=== PATIENT | female | born 1955 | race Caucasian/White ===

== ENCOUNTER → 2019-01-21 10:07 | Outpatient (CLI) | payer BC, SELFPAY ==
[2019-01-21 11:26] LABS: ALB/GLOB Ratio 0.9 RATIO (0.9-2.4); AST(SGOT) 23 U/L (15-37); Alanine Aminotransfer ALT/SGPT 33 U/L (13-56); Albumin, Serum 3.6 g/dL (3.2-5.0); Alkaline Phosphatase 98 U/L (45-117); Anion Gap 5 (5-15); BUN 12 mg/dL (7-18); BUN/Creat Ratio 19.8 RATIO (10-20); Calcium,Total 8.9 mg/dL (8.5-10.1); Chloride 107 mmol/L (98-107); Cholesterol 149 mg/dL (200); Creatinine, Serum 0.61 mg/dL (0.55-1.02); EST Glomerular Filtration Rate 106 mL/min (>60); Est Glom Filt Rate - Afr Amer 128 mL/min (>60); Globulin 4.2 g/dL (2.2-4.2); Glucose 99 mg/dL (74-106); High Density Lipoprotein 53 mg/dL; Potassium 3.9 mmol/L (3.5-5.1); Protein, Total 7.8 g/dL (6.4-8.2); Sodium Level 144 mmol/L (136-145); Triglycerides 136 mg/dL; Very Low Density Lipoprotein 27 mg/dL (5-40)
== END ==
PROVIDERS: Family Provider Family Medicine; PCP Family Medicine; Referring Provider Family Medicine; Visit Provider Family Medicine
DX: I10 Essential (primary) hypertension (principal); E78.5 Hyperlipidemia, unspecified
CPT/HCPCS: 36415; 80053; 80061

== ENCOUNTER → 2020-01-20 08:41 | Outpatient (CLI) | payer MEDICARE, SELFPAY ==
[2020-01-20 09:28] LABS: Hematocrit 42.1 % (37-47); Hemoglobin 13.2 g/dL (12.0-15.0); Mean Corp Hgb Conc 31.4 g/dL (32-36); Mean Corpuscular Hgb 25.8 pg (27.0-32.0); Mean Corpuscular Volume 82.2 fL (81-99); Mean Platelet Vol. 11.9 fl (6.2-12.0); Platelet Count 314 K/mm3 (150-450); RBC Distribution Width CV 15.2 % (11.6-14.6); RBC Distribution Width SD 45.7 fl (35.1-43.9); Red Blood Count 5.12 M/mm3 (4.2-5.4); White Blood Count 7.9 K/mm3 (4.4-11.0)
[2020-01-20 10:00] LABS: ALB/GLOB Ratio 0.8 RATIO (0.9-2.4); AST(SGOT) 22 U/L (15-37); Alanine Aminotransfer ALT/SGPT 27 U/L (13-56); Albumin, Serum 3.5 g/dL (3.2-5.0); Alkaline Phosphatase 99 U/L (45-117); Anion Gap 4 (5-15); BUN 16 mg/dL (7-18); BUN/Creat Ratio 21.6 RATIO (10-20); Calcium,Total 9.2 mg/dL (8.5-10.1); Chloride 102 mmol/L (98-107); Cholesterol 143 mg/dL (200); Creatinine, Serum 0.74 mg/dL (0.55-1.02); EST Glomerular Filtration Rate 83 mL/min (>60); Est Glom Filt Rate - Afr Amer 101 mL/min (>60); Globulin 4.2 g/dL (2.2-4.2); Glucose 113 mg/dL (74-106); High Density Lipoprotein 50 mg/dL; Potassium 3.6 mmol/L (3.5-5.1); Protein, Total 7.7 g/dL (6.4-8.2); Sodium Level 137 mmol/L (136-145); Triglycerides 121 mg/dL; Very Low Density Lipoprotein 24 mg/dL (5-40)
== END ==
PROVIDERS: PCP Family Medicine; Referring Provider Family Medicine; Visit Provider Family Medicine
DX: E78.5 Hyperlipidemia, unspecified (principal)
CPT/HCPCS: 36415; 80053; 80061; 85027

== ENCOUNTER → 2020-03-09 09:23 | Outpatient (CLI) | payer MEDICARE, SELFPAY ==
--- NOTE | 2020-03-09 09:25 | BI_ITS ---
MAMMOGRAPHY - BILATERAL SCREENING REASON FOR EXAM: Female, 64 years old. Routine annual screening examination. PERTINENT HISTORY: Non-contributory. TECHNIQUE: Digital bilateral breast anne (3D mammographic acquisition) in the CC and MLO projections. 2-D mediolateral oblique (MLO) and craniocaudad (CC) views of both breasts were obtained. CAD: Full Field Digital Mammography with Computer Added Detection was performed. COMPARISON: Comparison is made with prior study dated 02/12/2019 and 12/27/2011. FINDINGS: Breast Composition: The breasts are heterogeneously dense, which may obscure small masses. There is a 9.2 mm x 7.7 mm well-defined nodule in the upper medial aspect of the left breast. Correlation with ultrasound is recommended. No other significant abnormalities are identified. BI/SCREEN MAMM (CAD) W/ANNE BILAT IMPRESSION: 9.2 mm x 7.7 mm well-defined nodule in the upper medial aspect of the left breast as described. Correlation with ultrasound is recommended. ASSESSMENT CATEGORY: BIRADS Category 0: Incomplete. Need additional imaging evaluation. A letter regarding these results will be sent to the patient by the facility within 30 days. Approximately 10% of breast cancers are not detected by mammography. A normal mammogram should not delay biopsy of a clinically suspicious abnormality. [id number] Electronically Signed: Andrey Rios, at 10:44 EDT , Service support ,
--- NOTE | 2020-03-09 09:29 | BD_ITS ---
STUDY: DUAL ENERGY X-RAY ABSORPTIOMETRY / DXA REASON FOR EXAM: Female, 64 years old. 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 COMPARISON: None. FINDINGS: Lumbar Spine (L1-L4): g/cm2 (1.346) / T-score (1.4) / Z-score (3.0) Findings are suggestive of normal bone density with a low fracture risk. Left Femur Total: g/cm2 (1.083) / T-score (0.6) / Z-score (1.8) Left Femoral Neck: g/cm2 (0.912) / T-score (-0.9) / Z-score (0.6) Right Femur Total: g/cm2 (1.118) / T-score (0.9) / Z-score (2.1) Right Femoral Neck: g/cm2 (0.925) / T-score (-0.8) / Z-score (0.7) BD/Dexa Bone Density Study IMPRESSION: The patient is considered normal as outlined below according to World Jer Organization (WHO) criteria with a low fracture risk. Reference Information: The T-score is the number of standard deviations above or below the standard which is normal for young adults at their peak bone mineral density. The World Health Organization (WHO) interprets the T-scores as follows: Above -1 Normal bone density Between -1 and -2.5 Osteopenia Equal to / or below -2.5 Osteoporosis As a practical clinical guideline, osteopenia may be graded as follows: Mild -1 through -1.5 Moderate -1.6 through -2.0 Severe -2.1 through -2.4 The Z-score is the number of standard deviations above or below age-matched controls. A Z-score of less than -1.5 would be considered abnormal. References: 1. NIH Osteoporosis and Related Bone Diseases www osteo.org 2. International Society for Clinical Densitometry www iscd.org 3. National Osteoporosis Foundation www nof.org Electronically Signed: Andrey Rios, at 15:31 EDT , Service support ,
== END ==
PROVIDERS: PCP Family Medicine; Referring Provider Family Medicine; Visit Provider Family Medicine
DX: Z12.31 Encounter for screening mammogram for malignant neoplasm of breast (principal); Z78.0 Asymptomatic menopausal state
CPT/HCPCS: 77063; 77067; 77080

== ENCOUNTER → 2020-03-15 09:02 | Outpatient (CLI) | payer MEDICARE, SELFPAY ==
--- NOTE | 2020-03-15 09:03 | US_ITS ---
STUDY: ULTRASOUND BREAST - LEFT REASON FOR EXAM: Female, 64 years old. Abnormal screening mammogram. TECHNIQUE: Axial and longitudinal images of the LEFT breast were performed with a high resolution ultrasound transducer. # OF IMAGES: [id number] COMPARISON: Comparison is made with prior mammogram dated 03/09/2020. FINDINGS: LEFT Breast: The mammographic abnormality corresponds to a 7 mm x 7 mm x 3 mm well-defined lymph node at the 11 o''clock position of the breast at 5 cm from nipple. US/Breast Limited Unilateral IMPRESSION: The mammographic abnormality corresponds to a 7 mm x 7 mm x 3 mm benign appearing lymph node. ASSESSMENT CATEGORY: BIRADS Category 2: Benign. A letter regarding these results will be sent to the patient by the facility within 30 days. Electronically Signed: Andrey Rios, at 11:25 EST , Service support ,
== END ==
PROVIDERS: PCP Family Medicine; Referring Provider Family Medicine; Visit Provider Family Medicine
DX: R92.8 Other abnormal and inconclusive findings on diagnostic imaging of breast (principal); N63.0 Unspecified lump in unspecified breast
CPT/HCPCS: 76642

== ENCOUNTER → 2020-03-21 07:50 | Outpatient (CLI) | payer MEDICARE, SELFPAY ==
--- NOTE | 2020-03-21 07:54 | US_ITS ---
STUDY: ULTRASOUND OF THE FEMALE PELVIS - COMPLETE REASON FOR EXAM: Female, 64 years old. FAMILY H/O OVARIAN LMP: The patient is postmenopausal. TECHNIQUE: Transabdominal and Transvaginal TECHNICAL QUALITY: Adequate. COMPARISON: None. FINDINGS: The uterus is anteverted and is tilted to the left side of the pelvis. The uterus measures 6.5 cm x 4.5 cm x 2.6 cm. Normal uterine cervix. The endometrium is thickened and measures 6 mm in thickness, and is hyperechoic. There is no demonstrated endometrial mass. There is no demonstrated myometrial mass. I.U.D. - The patient does not have an I.U.D. The right ovary is visualized. The right ovary measures 3.3 cm x 2 cm x 2.5 cm. There is a 3.1 cm x 2 cm x 1.9 cm right ovarian cyst. There is no visualized right adnexal mass or complex lesion. There is normal arterial and normal venous vascularity. The left ovary is visualized. The left ovary measures 1.8 cm x 1.5 cm x 0.9 cm. There is no left ovarian cyst or ovarian mass. There is no visualized left adnexal mass or complex lesion. There is normal arterial and normal venous vascularity. There is no fluid in the cul-de-sac. The pre void volume of the bladder was 187 ml. The post void volume of the bladder was ml. US/Pelvic (Non ) IMPRESSION: Thickened endometrium. 3.1 cm x 2 cm x 1.9 cm right ovarian cyst. Electronically Signed: Andrey Rios, at 11:15 EST , Service support ,
--- NOTE | 2020-03-21 07:54 | US_ITS ---
STUDY: ULTRASOUND OF THE FEMALE PELVIS - COMPLETE REASON FOR EXAM: Female, 64 years old. FAMILY H/O OVARIAN LMP: The patient is postmenopausal. TECHNIQUE: Transabdominal and Transvaginal TECHNICAL QUALITY: Adequate. COMPARISON: None. FINDINGS: The uterus is anteverted and is tilted to the left side of the pelvis. The uterus measures 6.5 cm x 4.5 cm x 2.6 cm. Normal uterine cervix. The endometrium is thickened and measures 6 mm in thickness, and is hyperechoic. There is no demonstrated endometrial mass. There is no demonstrated myometrial mass. I.U.D. - The patient does not have an I.U.D. The right ovary is visualized. The right ovary measures 3.3 cm x 2 cm x 2.5 cm. There is a 3.1 cm x 2 cm x 1.9 cm right ovarian cyst. There is no visualized right adnexal mass or complex lesion. There is normal arterial and normal venous vascularity. The left ovary is visualized. The left ovary measures 1.8 cm x 1.5 cm x 0.9 cm. There is no left ovarian cyst or ovarian mass. There is no visualized left adnexal mass or complex lesion. There is normal arterial and normal venous vascularity. There is no fluid in the cul-de-sac. The pre void volume of the bladder was 187 ml. The post void volume of the bladder was ml. US/Transvaginal Non- IMPRESSION: Thickened endometrium. 3.1 cm x 2 cm x 1.9 cm right ovarian cyst. Electronically Signed: Andrey Rios, at 11:15 EST , Service support ,
== END ==
PROVIDERS: PCP Family Medicine; Referring Provider Obstetrics & Gynecology; Visit Provider Obstetrics & Gynecology
DX: N83.201 Unspecified ovarian cyst, right side (principal); R93.89 Abnormal findings on diagnostic imaging of other specified body structures; Z78.0 Asymptomatic menopausal state; Z80.41 Family history of malignant neoplasm of ovary
CPT/HCPCS: 76830; 76856

== ENCOUNTER → 2020-12-09 10:13 | Outpatient (CLI) | payer MEDICARE, SELFPAY ==
--- NOTE | 2020-12-09 10:11 | EKG12_ITS ---
Test Reason : PREOP Blood Pressure : / mmHG Vent. Rate : 074 BPM Atrial Rate : 074 BPM P-R Int : 188 ms QRS Dur : 084 ms QT Int : 378 ms P-R-T Axes : 039 052 031 degrees QTc Int : 419 ms Normal sinus rhythm Normal ECG Confirmed by MAURO LIND, LATASHA ([id number]), astronaut mission specialist ARIC ISRAEL ([id number]) on 12/13/2020 10:02:02 AM Referred By: Sai Gutierrez Confirmed By:LAATSHA WADE MD
[2020-12-09 11:03] LABS: Hematocrit 39.4 % (37-47); Hemoglobin 12.2 g/dL (12.0-15.0); Mean Corpuscular Hgb 26.1 pg (27.0-32.0); Mean Corpuscular Volume 84.4 fL (81-99); Mean Platelet Vol. 11.5 fl (6.2-12.0); Platelet Count 332 K/mm3 (150-450); RBC Distribution Width CV 15.5 % (11.6-14.6); RBC Distribution Width SD 46.5 fl (35.1-43.9); Red Blood Count 4.67 M/mm3 (4.2-5.4); White Blood Count 8.3 K/mm3 (4.4-11.0)
[2020-12-09 11:17] LABS: Anion Gap 6 (5-15); BUN 19 mg/dL (7-18); BUN/Creat Ratio 30.7 RATIO (10-20); Calcium,Total 9.3 mg/dL (8.5-10.1); Chloride 104 mmol/L (98-107); Creatinine, Serum 0.62 mg/dL (0.55-1.02); EST Glomerular Filtration Rate 103 mL/min (>60); Est Glom Filt Rate - Afr Amer 124 mL/min (>60); Glucose 106 mg/dL (74-106); Potassium 3.9 mmol/L (3.5-5.1); Sodium Level 140 mmol/L (136-145)
== END ==
PROVIDERS: PCP Family Medicine; Referring Provider Physician Assistant Surgical; Visit Provider Physician Assistant Surgical
DX: Z01.818 Encounter for other preprocedural examination (principal)
CPT/HCPCS: 36415; 80048; 85027; 93005

== ENCOUNTER → 2020-12-16 | Outpatient (CLI) | payer MEDICARE, SELFPAY ==
--- NOTE | 2020-12-16 | GANG_PTH ---
PATIENT: MERLENE SOW LOC: [facility] U#:[id number] AGE/SX: 65/F ROOM: RE12/16/[address]: Dr. Carter Mena MD : 1955 BED: DIS: 12/16/2020 SPEC #: [id number] RECD: 12/16/20 15:01 STATUS: TY REGrace #: [id number] PETER: 12/16/20 00:[address]: Carter Mena DEPT: SURGICAL PATHOLOGY RECD BY: Vinicio Ann ENTERED: 12/19/20 08:07 SP TYPE: GANGLION OTHR DR: Dr. Jose Cruz MD [facility] Tissues: GANGLION CYST Procedures: Surgery Specimen Level III HEADER OPERATION: Right thumb carpometacarpal joint arthroplasty, excision ganglion cyst PRE-OP DIAGNOSIS: Ganglion cyst right wrist TISSUE SUBMITTED: Ganglion cyst right wrist MICROSCOPIC DIAGNOSIS Ganglion cyst right wrist, excision: Consistent with ganglion cyst with reactive changes. SJ:rosanna 12/20/2020 COMMENT Case has been reviewed in consultation with Dr. Murguia who concurs with the above diagnosis. IDC:AM MICROSCOPIC DESCRIPTION Slides are reviewed. GROSS DESCRIPTION Received in fixative is one container labeled with the patient's name and designated ganglion cyst right wrist. The specimen consists of a piece of simeon soft tissue measuring 0.7 x 0.7 x 0.3 cm. The specimen is bisected and submitted entirely in one cassette. / SJ:rosanna 12/19/20 TC:5 CPT: 08862
== END | disposition home or self-care (01) ==
LOC: LABSPEC 15:45
PROVIDERS: PCP Family Medicine; Referring Provider Specialist; Visit Provider Specialist
DX: M67.431 Ganglion, right wrist (principal)
CPT/HCPCS: 88304

== ENCOUNTER 2021-02-28 09:00 | Outpatient (RCR) | payer MEDICARE, SELFPAY ==
--- NOTE | 2021-01-17 09:28 | HP.OTEVAL ---
Patient's Visit Information MERLENE SOW is a 65 year old F, referred to Occupational Therapy by Himanshu Boles PA-C, with a diagnosis of right Unilateral primary osteoarthritis of cmc, DeQuervains. Date of Evaluation: 01/12/21 Occupational Therapist: Sil Carreno, SHANELLE/Ra, CHT - Subjective This 65 year old female was seen for OT eval with dx Unilateral primary osteoarthritis of 1st carpometacarpal joint right hand- pt also had radial styloid tenosynovitis (DeQuervains-) sx was on 12/16/20. pt arrives 3 weeks and 6 days s/p from CMC arthroplasty with radial styloid release. pt arrives in need of custom orthosis to allow for further healing and protection while pt is healing. Pt states she is hopeful she is ready to return to her PLOF in a few months. - Pain right hand 1 Pain Intensity Range: 5 - ROM Wrist: right 45/30 left 65/65m CMC: right 15 left 20 MP: right 45 left 50 IP: right 20 left 60 - Strength Airframe And Powerplant Technician: Right NT left 55# Lateral Pinch: right NT left 4# Tripod Pinch: right NT left Strength Comments: will test strength at later date about 6-8 weeks s/p - Sensation Sensation Comments: denines - Quick DASH-Disab of Arm,Shoulder& Hand Quick DASH Score: 60.0000 - Hand/Wrist Evaluation Total Score of Pain & Functional Sections: 79 - Goals Goal:100% adherence to protocol: Yes Comment: cmc arthroplasty Goal:Daily scar massage when approriate: Yes Goal:ROM equal to unaffected hand: Yes Goal:Airframe And Powerplant Technician/Pinch strength at least 75% of unaffected hand: Yes Goal:No pain with affected hand use: Yes Goal:Decrease scar hypersensitivity: Yes Other Goal: pt will demo IND. doffing and donning of custom orthosis by end of 1st session- goal met. pt will demo understanding of sx and reconstruction by end of 1st session. pt will demo understanding of orthosis precautions and use by end of 1st session. - Rehabilitation General Assessment: pt arrives 3 weeks and 6 days s/p from CMC arthroplasty. pt is currently limited with use of right hand with ADls and IADls. pt is in need of skilled OT services 1-2 x week for 8 weeks. Today therapist kimberlee. custom orthosis for protection. therapist ed. pt on orthosis precautions and to return to clinic if adj. need made- pt demo understanding- therapist will follow CMC arthroplasty protocol initiating wrist, and supported CMC with IP motion, and finger ROM- therapy will continue to transition pt in more ROM as clinical objective measurements improve and subjective report continues to indicate progress.pt agrees with POC. Rehabilitation Potential: Good - Anticipated Interventions A/AAROM/PROM, Strengthening, Scar Care, Triggerpoint Release, Desensitization, Modalities, Orthoses, Joint Protection/Energy Conservation, Ergonomic Education, Education re assistive Equipment, Education re Diagnosis - Visit Plan Frequency: 2-3x /Week Duration: 2 Months TEXT: Thank you for the opportunity to evaluate your patient. For Medicare and Medicare HMO plans, please review the plan of care and approve it. It will need to be FAXED BACK to us at [phone] for Medicare purposes. Please let me know if there are questions or concerns regarding this plan of care. Physician Signature: Date:
--- NOTE | 2021-02-08 09:27 | OTREVAL_ITS ---
Himanshu Boles PA-C, It has been my pleasure to treat MERLENE SOW over the last 4 visits for right Unilateral primary osteoarthritis of cmc, DeQuervains. Please see the progress note below for an update on the occupational therapy plan of care! Subjective: pt arrives 7 weeks and 6 days from CMC arthoplasty -pt states she feels her right hand only stops her from doing things about 10-15% of the time- pt did chop a lot of veggies this past weekend and did have soreness. pt states she is out of her brace during the day 90% of the time or more- pt states she is still wearing at night. Objective/Function: right 65/ 60. right CMC 15. right MP 40. right IP 55. right hand pattern marker 30# left is 55#. right lateral pinch 6#. right tripod pinch 6#. pt is making gains with her right thumb recovery-. pt has returned to performing most ADLs without limits- pt has initiated hand pattern marker and pinch strength and has HEP. Goals - Goals Patient Goals: Regain Mobility, Decrease Pain, Improve Fine Motor Skills Goal:100% adherence to protocol: Yes Goal:Daily scar massage when approriate: Yes Goal:ROM equal to unaffected hand: Yes Goal:Colliery Clerk/Pinch strength at least 75% of unaffected hand: Yes Goal:No pain with affected hand use: Yes Goal:Decrease scar hypersensitivity: Yes Other Goal: pt will demo IND. doffing and donning of custom orthosis by end of 1st session- goal met. pt will demo understanding of sx and reconstruction by end of 1st session. pt will demo understanding of orthosis precautions and use by end of 1st session. Anticipated Interventions Anticipated Interventions: A/AAROM/PROM, Strengthening, Scar Care, Triggerpoint Release, Desensitization, Modalities, Orthoses, Joint Protection/Energy Conservation, Ergonomic Education, Education re assistive Equipment, Education re Diagnosis Please do not hesitate to contact me at [phone] by phone or if you have questions or concerns regarding this new plan of care! Sincerely, Sil Carreno, OTR/L, CHT
--- NOTE | 2021-06-01 09:37 | HP.OTDCNRP_ITS ---
MERLENE SOW was seen in my office for initial evaluation on 01/12/21. The following Plan of Care was established for this patient: Initial Frequency: 2-3x /Week Initial Duration: 2 Months Anticipated Interventions: A/AAROM/PROM, Strengthening, Scar Care, Triggerpoint Release, Desensitization, Modalities, Orthoses, Joint Protection/Energy Conservation, Ergonomic Education, Education re assistive Equipment, Education re Diagnosis This patient was last seen in our office 02/28/21. Pertinent comments regarding their Occupational therapy will appear below: pt was seen for 7 OT visits following a CMC arthroplasty- pt made great gains in her recovery- right 65/ 60 right CMC 15 right MP 40 right IP 55 right prototype assembler electronics 38# left is 55# right lateral pinch 6# right tripod pinch 6# pt is making gains with her right thumb recovery- pt has returned to performing most ADLs without limits- pt has initiated prototype assembler electronics and pinch strength and has HEP. at this time pt has not returned for further apt due to time lapse in services pt d/c. At this point I will be discontinuing this patient from occupational therapy. I would be happy to see this patient again in the future if found appropriate by the physician. Thank you! Sil Carreno, OTR/L, CHT
== END 2021-02-28 19:00 | disposition home or self-care (01) ==
LOC: OT 09:00
PROVIDERS: PCP Family Medicine; Referring Provider Physician Assistant; Visit Provider Physician Assistant
DX: M65.4 Radial styloid tenosynovitis [de Quervain] (principal); M18.11 Unilateral primary osteoarthritis of first carpometacarpal joint, right hand
CPT/HCPCS: 97110; 97166; 97530; 97760

== ENCOUNTER → 2021-03-27 12:25 | Outpatient (CLI) | payer MEDICARE, SELFPAY ==
--- NOTE | 2021-03-27 12:30 | US_ITS ---
EXAM: US PELVIS TRANSABDOMINAL AND TRANSVAGINAL, COMPLETE : 1955 CLINICAL INDICATION: family history of ovarian ca TECHNIQUE: Transabdominal and transvaginal pelvic ultrasound was performed with grayscale and color Doppler imaging. Transvaginal imaging was used for better evaluation of the endometrium and adnexa. This report was created using [employer] report generation technology. COMPARISON: None. FINDINGS: UTERUS/CERVIX: The uterus measures 6.4 x 3.2 x 4.7 cm. Endometrium measures 7 mm. Anteverted. There is no uterine mass. RIGHT OVARY: The right ovary measures 4.2 x 2.6 x 3.4 cm. There is a 3.0 x 3.4 x 2.0 cm anechoic structure in the right ovary compatible with a cyst. Blood flow is present in the right ovary. LEFT OVARY: The left ovary is not visualized. FREE FLUID: None. BLADDER: Unremarkable as visualized. Wall is normal thickness for degree of distention. US/Transvaginal Non- IMPRESSION: Anechoic structure in the right ovary compatible with a cyst. The left ovary is not visualized. No other abnormalities are seen. at 0308 Reported and signed by: Salinas Tate MD Electronically Signed: Salinas Tate MD at 3:07 EST Tel , Service support ,
--- NOTE | 2021-03-27 12:30 | US_ITS ---
EXAM: US PELVIS TRANSABDOMINAL AND TRANSVAGINAL, COMPLETE : 1955 CLINICAL INDICATION: family history of ovarian ca TECHNIQUE: Transabdominal and transvaginal pelvic ultrasound was performed with grayscale and color Doppler imaging. Transvaginal imaging was used for better evaluation of the endometrium and adnexa. This report was created using [employer] report generation technology. COMPARISON: None. FINDINGS: UTERUS/CERVIX: The uterus measures 6.4 x 3.2 x 4.7 cm. Endometrium measures 7 mm. Anteverted. There is no uterine mass. RIGHT OVARY: The right ovary measures 4.2 x 2.6 x 3.4 cm. There is a 3.0 x 3.4 x 2.0 cm anechoic structure in the right ovary compatible with a cyst. Blood flow is present in the right ovary. LEFT OVARY: The left ovary is not visualized. FREE FLUID: None. BLADDER: Unremarkable as visualized. Wall is normal thickness for degree of distention. US/Pelvic (Non ) IMPRESSION: Anechoic structure in the right ovary compatible with a cyst. The left ovary is not visualized. No other abnormalities are seen. at 0308 Reported and signed by: Salinas Tate MD Electronically Signed: Salinas Tate MD at 3:07 EST Tel , Service support ,
--- NOTE | 2021-03-27 12:58 | BI_ITS ---
MAMMOGRAPHY - BILATERAL SCREENING REASON FOR EXAM: Female, 65 years old. Routine annual screening examination. PERTINENT HISTORY: Non-contributory. TECHNIQUE: Digital bilateral breast anne (3D mammographic acquisition) in the CC and MLO projections. 2-D mediolateral oblique (MLO) and craniocaudad (CC) views of both breasts were obtained. CAD: Full Field Digital Mammography with Computer Added Detection was performed. COMPARISON: Comparison is made with prior study dated 03/09/2020 and 12/27/2011. FINDINGS: Breast Composition: The breasts are heterogeneously dense, which may obscure small masses. There are no dominant masses or suspicious calcifications. Stable 7.7 mm x 9 mm well-defined nodule in the upper medial aspect of the left breast. No other significant abnormalities are identified. There has been no significant change since the prior study. BI/SCRN MAMM (CAD)W/ANNE BILAT IMPRESSION: Stable bilateral screening mammogram. Yearly follow-up mammogram recommended. (A) ASSESSMENT CATEGORY: BIRADS Category 2: Benign. A letter regarding these results will be sent to the patient by the facility within 30 days. Approximately 10% of breast cancers are not detected by mammography. A normal mammogram should not delay biopsy of a clinically suspicious abnormality. [id number] Electronically Signed: Andrey Rios MD at 13:32 EST , Service support ,
== END ==
PROVIDERS: PCP Family Medicine; Referring Provider Obstetrics & Gynecology; Visit Provider Obstetrics & Gynecology
DX: Z12.31 Encounter for screening mammogram for malignant neoplasm of breast (principal); Z80.41 Family history of malignant neoplasm of ovary
CPT/HCPCS: 76830; 76856; 77063; 77067

== ENCOUNTER 2021-06-21 08:44 | Outpatient (CLI) | payer MEDICARE, SELFPAY ==
--- NOTE | 2021-06-21 08:53 | RAD_ITS ---
STUDY: X-RAY - LUMBAR SPINE REASON FOR EXAM: Female, 65 years old. SEVERE PAIN SINCE SATURDAY, DECREASE IN LEG SENSATION, RIGHT LEG NUMB/TINGLY, INCREASE PAIN WHILE STANDING Dorsalgia, unspecified TECHNIQUE: XR Spine Lumbar Min 4 Views COMPARISON: None FINDINGS: Normal lumbar lordosis. There is no substantial scoliosis. There is a normal alignment of the vertebrae. There are multiple metallic clips in the right upper quadrant. This is consistent for a cholecystectomy. Vacuum disc phenomenon. This is noted at L1-2 and L5-S1. There is multilevel endplate spondylosis of the lumbar vertebrae. There is multi-level degenerative disc disease with multi-level disc space narrowing. There are atherosclerotic vascular calcifications. The soft tissue structures are unremarkable. RAD/L/S Spine Min 4 Views IMPRESSION: Degenerative changes of the spine, as detailed above. Electronically Signed: Chris Rolon MD at 16:49 EST ,
== END 2021-06-21 23:59 | disposition home or self-care (01) ==
LOC: RAD 08:48
PROVIDERS: PCP Family Medicine; Referring Provider Family Medicine; Visit Provider Family Medicine
DX: M54.9 Dorsalgia, unspecified (principal)
CPT/HCPCS: 72110

== ENCOUNTER 2021-08-07 10:21 | Outpatient (CLI) | payer MEDICARE, SELFPAY ==
--- NOTE | 2021-08-07 10:25 | MRI_ITS ---
STUDY: MRI LUMBAR SPINE WITHOUT CONTRAST REASON FOR EXAM: Female, 65 years old. SCIATICA TECHNIQUE: Standardized fat and water weighted pulse sequences were obtained in the sagittal and axial planes. COMPARISON: Lumbar spine x-ray dated June 21, 2021 FINDINGS: No fracture or compression deformity or bone marrow edema is present. Normal lumbar lordosis. There is a dextroscoliosis of the lumbar spine. Normal conus medullaris that terminates at the L1-L2 level. L1-2: Moderate disc space narrowing with a diffuse disc spur complex. Normal bilateral facet joints. Normal central canal and bilateral lateral recesses. Normal bilateral intervertebral neural foramina. L2-3: Mild to moderate disc space narrowing with a diffuse disc osteophyte complex. Retrolisthesis of L2 on L3 of 2 to 3 mm. Normal bilateral facet joints. Normal central canal and bilateral lateral recesses. Normal bilateral intervertebral neural foramina. L3-4: Mild posterior disc space narrowing with a disc spur complex. Mild facet joint hypertrophy. Normal central canal and bilateral lateral recesses. Normal bilateral intervertebral neural foramina. L4-5: Normal endplates. Mild posterior disc space narrowing and annular bulging. Mild facet joint hypertrophy. Normal central canal and bilateral lateral recesses. Normal bilateral intervertebral neural foramina. L5-S1: Mild disc space narrowing with a minimal disc spur complex. Mild facet joint hypertrophy. Normal central canal and bilateral lateral recesses. Normal bilateral intervertebral neural foramina. Normal visualized sacral ala. There is mild paraspinal muscular atrophy. MRI/Spine Lumbar (Routine) IMPRESSION: Multilevel degenerative changes, as described above. Electronically Signed: Carlos Paula MD at 12:25 EDT ,
== END 2021-08-07 23:59 | disposition home or self-care (01) ==
PROVIDERS: PCP Family Medicine; Visit Provider Family Medicine
DX: M54.9 Dorsalgia, unspecified (principal); M54.30 Sciatica, unspecified side
CPT/HCPCS: 72148

== ENCOUNTER → 2021-12-23 | Outpatient (CLI) | payer MEDICARE, SELFPAY ==
[2021-12-23 09:42] LABS: Hematocrit 42.6 % (37-47); Hemoglobin 13.5 g/dL (12.0-15.0); Mean Corp Hgb Conc 31.7 g/dL (32-36); Mean Corpuscular Hgb 26.3 pg (27.0-32.0); Mean Platelet Vol. 11.8 fl (6.2-12.0); Platelet Count 279 K/mm3 (150-450); RBC Distribution Width SD 45.4 fl (35.1-43.9); Red Blood Count 5.13 M/mm3 (4.2-5.4); White Blood Count 9.1 K/mm3 (4.4-11.0)
[2021-12-23 10:08] LABS: ALB/GLOB Ratio 0.8 RATIO (0.9-2.4); AST(SGOT) 19 U/L (15-37); Alanine Aminotransfer ALT/SGPT 31 U/L (13-56); Albumin, Serum 3.3 g/dL (3.2-5.0); Alkaline Phosphatase 97 U/L (45-117); Anion Gap 7 (5-15); BUN 17 mg/dL (7-18); BUN/Creat Ratio 25.1 RATIO (10-20); Calcium,Total 9.2 mg/dL (8.5-10.1); Chloride 102 mmol/L (98-107); Cholesterol 137 mg/dL (200); Creatinine, Serum 0.68 mg/dL (0.55-1.02); EST Glomerular Filtration Rate 92 mL/min (>60); Est Glom Filt Rate - Afr Amer 112 mL/min (>60); Globulin 4.3 g/dL (2.2-4.2); Glucose 123 mg/dL (74-106); High Density Lipoprotein 46 mg/dL; Potassium 3.5 mmol/L (3.5-5.1); Protein, Total 7.6 g/dL (6.4-8.2); Sodium Level 138 mmol/L (136-145); Triglycerides 140 mg/dL; Very Low Density Lipoprotein 28 mg/dL (5-40)
== END | disposition home or self-care (01) ==
LOC: LAB 08:27
PROVIDERS: PCP Family Medicine; Referring Provider Family Medicine; Visit Provider Family Medicine
DX: E78.5 Hyperlipidemia, unspecified (principal)
CPT/HCPCS: 36415; 80053; 80061; 85027

== ENCOUNTER → 2022-03-27 | Outpatient (CLI) | payer MEDICARE, SELFPAY ==
--- NOTE | 2022-03-27 12:53 | US_ITS ---
INDICATION: Family History of ovarian cancer. COMPARISON: March 27, 2021 ultrasound pelvis at 12:55 PM Report from March 21, 2020. TECHNIQUE: Transabdominal and transvaginal scanning was performed with grayscale and color Doppler imaging. FINDINGS: Uterus: Measures 8.2 x 5.1 x 2.4 cm. No uterine masses are identified. Endometrium: Measures 8.9 mm. No endometrial masses or abnormal fluid collections. There is a thickened appearance of the endocervical canal. Right ovary measures 4 x 2.8 x 2.9 cm. There is a visualized right adnexal cyst measuring there is a visualized right-sided ovarian cyst measuring 3.9 x 2.8 x 2.6 cm. The transvaginal imaging. On transabdominal imaging and measures 3.4 x 2.7 x 2.5 cm. There is no visualized internal vascularity. The visualized nabothian cyst at the level of the cervix. This is similar to the prior study. Prior reports describe a 3.1 x 2.0 x 2 cm right ovarian cyst. On prior study there is a cystic structure measuring 3.4 x 1.9 x 2.9 cm Similar to prior study, Left ovary is not visualized on this study. Free fluid: There is a minimal amount of free fluid. The bladder is distended on the transabdominal images. The bladder measures 407.19 mL in volume. The endometrium appears to measure approximately 7.6 mm on the transabdominal images. US/Pelvic (Non ) IMPRESSION: There is similar-appearing anechoic avascular cystic structure right adnexa that now measures 3.9 x 2.8 x 2.6 cm. March 21, 2020 was measured at 3.1 x 2.0 x 1.9 cm. There is been slight interval enlargement over time. Abnormal thickened appearance of the endometrium for patient''s age measuring 8.9 mm. The endometrium on the 2020 study was described as 9.2 mm previously March 21, 2020 at 6 mm. The endometrium in postmenopausal patient should be less than 6 mm. Potentially endometrial hyperplasia could have this appearance or atypia. Could consider follow-up MRI of the pelvis if possible. Nonvisualization of the left ovary. Electronically Signed: Kaykay Hobbs MD at 0:39 EST ,
== END | disposition home or self-care (01) ==
PROVIDERS: PCP Family Medicine; Referring Provider Obstetrics & Gynecology; Visit Provider Obstetrics & Gynecology
DX: Z80.41 Family history of malignant neoplasm of ovary (principal)
CPT/HCPCS: 76830; 76856

== ENCOUNTER → 2022-04-11 | Outpatient (CLI) | payer MEDICARE, SELFPAY ==
--- NOTE | 2022-04-11 08:08 | BI_ITS ---
MAMMOGRAPHY - BILATERAL SCREENING REASON FOR EXAM: Female, 66 years old. Routine annual screening examination. PERTINENT HISTORY: Non-contributory. TECHNIQUE: Digital bilateral breast anne (3D mammographic acquisition) in the CC and MLO projections. 2-D mediolateral oblique (MLO) and craniocaudad (CC) views of both breasts were obtained. CAD: Full Field Digital Mammography with Computer Added Detection was performed. COMPARISON: Comparison is made with prior study dated 03/27/2021 and 03/09/2020. FINDINGS: Breast Composition: The breasts are heterogeneously dense, which may obscure small masses. Stable 9 mm x 7.7 mm well-defined nodule in the upper medial aspect of the left breast. Multiple skin lesions are seen in both breasts. Stable benign-appearing bilateral axillary lymph nodes. No other significant abnormalities are identified. There has been no significant change since the prior study. BI/SCRN MAMM (CAD)W/ANEN BILAT IMPRESSION: Stable bilateral screening mammogram. Yearly follow-up mammogram recommended. (A) ASSESSMENT CATEGORY: BIRADS Category 2: Benign. A letter regarding these results will be sent to the patient by the facility within 30 days. Approximately 10% of breast cancers are not detected by mammography. A normal mammogram should not delay biopsy of a clinically suspicious abnormality. [id number] Electronically Signed: Andrey Rios MD at 9:22 EST ,
== END | disposition home or self-care (01) ==
LOC: OPBI 08:07
PROVIDERS: PCP Family Medicine; Visit Provider Obstetrics & Gynecology
DX: Z12.31 Encounter for screening mammogram for malignant neoplasm of breast (principal)
CPT/HCPCS: 77063; 77067

== ENCOUNTER → 2022-08-21 | Outpatient (CLI) | payer MEDICARE, SELFPAY ==
[2022-08-21 11:39] LABS: Hemoglobin A1c 6.3 % (3.8-5.6)
== END | disposition home or self-care (01) ==
LOC: LAB 11:03
PROVIDERS: PCP Family Medicine; Referring Provider Family Medicine; Visit Provider Family Medicine
DX: R73.02 Impaired glucose tolerance (oral) (principal)
CPT/HCPCS: 36415; 83036

== ENCOUNTER → 2023-04-24 | Outpatient (CLI) | payer MEDICARE, SELFPAY ==
--- NOTE | 2023-04-24 08:25 | BI_ITS ---
MAMMOGRAPHY - BILATERAL SCREENING REASON FOR EXAM: Female, 67 years old. Routine annual screening examination. PERTINENT HISTORY: Non-contributory. TECHNIQUE: Digital bilateral breast anne (3D mammographic acquisition) in the CC and MLO projections. 2-D mediolateral oblique (MLO) and craniocaudad (CC) views of both breasts were obtained. CAD: Full Field Digital Mammography with Computer Added Detection was performed. COMPARISON: Comparison is made with prior examination of April 11, 2022 and March 27, 2021. FINDINGS: Breast Composition: The breasts are heterogeneously dense, which may obscure small masses. There are no dominant masses or suspicious calcifications. Stable 7.7 mm x 9 mm well-defined nodule in the upper medial aspect of the left breast. This is suggestive of a small lymph node. Stable benign-appearing bilateral axillary lymph nodes. No other significant abnormalities are identified. There has been no significant change since the prior study. BI/SCRN MAMM (CAD)W/ANNE BILAT IMPRESSION: Stable bilateral screening mammogram. Yearly follow-up mammogram recommended. (A) ASSESSMENT CATEGORY: BIRADS Category 2: Benign. A letter regarding these results will be sent to the patient by the facility within 30 days. Approximately 10% of breast cancers are not detected by mammography. A normal mammogram should not delay biopsy of a clinically suspicious abnormality. [id number] Electronically Signed: Andrey Rios MD at 10:50 EST ,
== END | disposition home or self-care (01) ==
LOC: OPBI 08:24
PROVIDERS: PCP Family Medicine; Referring Provider Family Medicine; Visit Provider Family Medicine
DX: Z12.31 Encounter for screening mammogram for malignant neoplasm of breast (principal)
CPT/HCPCS: 77063; 77067

== ENCOUNTER → 2023-07-03 | Outpatient (CLI) | payer MEDICARE, SELFPAY ==
[2023-07-03 11:57] LABS: Hematocrit 40.7 % (37-47); Hemoglobin 12.9 g/dL (12.0-15.0); Mean Corp Hgb Conc 31.7 g/dL (32-36); Mean Corpuscular Hgb 26.5 pg (27.0-32.0); Mean Corpuscular Volume 83.7 fL (81-99); Platelet Count 292 K/mm3 (150-450); RBC Distribution Width CV 14.7 % (11.6-14.6); RBC Distribution Width SD 45.1 fl (35.1-43.9); Red Blood Count 4.86 M/mm3 (4.2-5.4); White Blood Count 8.5 K/mm3 (4.4-11.0)
[2023-07-03 12:38] LABS: ALB/GLOB Ratio 0.8 RATIO (0.9-2.4); AST(SGOT) 14 U/L (15-37); Alanine Aminotransfer ALT/SGPT 27 U/L (13-56); Albumin, Serum 3.4 g/dL (3.2-5.0); Alkaline Phosphatase 107 U/L (45-117); Anion Gap 6 (5-15); BUN 14 mg/dL (7-18); BUN/Creat Ratio 19.4 RATIO (10-20); Calcium,Total 9.8 mg/dL (8.5-10.1); Chloride 102 mmol/L (98-107); Cholesterol 193 mg/dL (200); Creatinine, Serum 0.72 mg/dL (0.55-1.02); EST Glomerular Filtration Rate 85 mL/min (>60); Est Glom Filt Rate - Afr Amer 103 mL/min (>60); Globulin 4.4 g/dL (2.2-4.2); Glucose 114 mg/dL (74-106); High Density Lipoprotein 50 mg/dL; Potassium 3.8 mmol/L (3.5-5.1); Protein, Total 7.8 g/dL (6.4-8.2); Sodium Level 137 mmol/L (136-145); Triglycerides 124 mg/dL; Very Low Density Lipoprotein 25 mg/dL (5-40)
[2023-07-03 12:41] LABS: Hemoglobin A1c 6.4 % (3.8-5.6)
== END | disposition home or self-care (01) ==
LOC: LAB 11:20
PROVIDERS: PCP Family Medicine; Referring Provider Family Medicine; Visit Provider Family Medicine
DX: E78.2 Mixed hyperlipidemia (principal); R73.02 Impaired glucose tolerance (oral)
CPT/HCPCS: 36415; 80053; 80061; 83036; 85027

== ENCOUNTER → 2023-07-11 | Outpatient (CLI) | payer MEDICARE, SELFPAY | END | disposition home or self-care (01) | LOC: LAB.FUTURE 10:25 | PROVIDERS: PCP Family Medicine; Visit Provider Family Medicine | DX: R73.02 Impaired glucose tolerance (oral) (principal) ==

== ENCOUNTER → 2023-07-11 | Outpatient (CLI) | payer MEDICARE, SELFPAY ==
--- OUTSIDE RECORDS SUMMARY | 2023-07-11 12:04 | XMS RPT_ITS | CCD ---
Author Name Unknown Address [address] [place] [address] Organization [facility] Care Team Providers Care Audio Specialist Name Role Phone LINDA MOY Unavailable Unavailable STENCEL, CHRISTA SAMSON Unavailable Unavailab le Stencel, Christa Unavailable Unavailable Stencel, Christa Hyde Unavailable Unavailable Stencel, Christa Unavailable Unavailable Stencel, Christa Hyde Unavailable Unavailable Unavailable Rehan, Dr. Mukesh Josue Attending Un available Furness, Dr. Mukesh Josue Referring Un available Stencel, Dr. Christa Samson Primary Care Unava ilable Stencel, Dr. Christa Samson Attending Unava ilable Stencel, Dr. Christa Samson Referring Unava ilable Stencel, Dr. Christa Samson Primary Care Unava ilable Stencel, Dr. Christa Samson Primary Care Unava ilable Elbert Rosario Referring Unavailable Abraham, Elbert Attending Unavailable Abraham, Elbert Referring Unavailable VillaseñorYenni Attending Unavailable Stencel, Dr. Christa Samson Primary Care Unava ilable Yenni Villaseñor Attending Unavailable Stencel, Dr. Christa Samson Primary Care Unava ilable UNKNOWN, Dr. RUBA Pena Referring Unav ailable Stencel, Dr. Christa Samson Primary Care Unava ilable Elbert Rosario Attending Unavailable Stencel, Dr. Christa Samson Primary Care Unava ilable Stencel, Dr. Christa Samson Attending Unava ilable Stencel, Dr. Christa Samson Referring Unava ilable Stencel Christa LIND Primary Care Provider Christa Cruz MD Unavailable [phone] Allergies Allergy Classification Reported Allergen(s) Allergy Type Date of Onset Reaction(s) Facility Acetaminophen / HYDROcodone (2 sources) Acetaminophen / HYDROcodone; Translations: [[place] TABS] Drug Allergy Vomiting [facility] Work Phone: Amoxicillin / Clavulanate (2 sources) Amoxicillin / Clavulanate; Translations: [Augmentin] Drug Allergy [facility] Work Phone: Cephalosporins (antibiotic) (2 sources) Cefaclor; Translations: [Ceclor] Drug Allergy Swelling [facility] Work Phone: (2 sources) acetaminophen / HYDROcodone; Translations: [HYDROCODONE-ACET AMINOPHEN] Drug Allergy 6 Other [facility] Rep[facility] (2 sources) cefaclor; Translations: [CEFACLOR] Drug Allergy 6 Swelling [facility] (2 sources) AMOXICILLIN-POT CLAVULANATE; Translations: [AMOXICILLIN-POT CLAVULANATE] Propensity to adverse reactions to drug (disorder) 6 Unknown [facility] (15 sources) Acetaminophen / HYDROcodone; Translations: [[place] TABS] Drug Allergy Vomiting [facility] [place] [facility] Work Phone: (15 sources) Amoxicillin / Clavulanate; Translations: [Augmentin] Drug Allergy [facility] Work Phone: (15 sources) Cefaclor; Translations: [Ceclor] Drug Allergy Swelling [facility] Work Phone: Medications Current Medications Medication Drug Class(es) Dates Sig (Normalized) Sig (Original) amLODIPine 5 mg oral tablet (19 sources) Dihydropyridine Calcium Channel Corey Start: 07-21-2019 End: 01-02-2024 take 1 tablet by mouth once daily amLODIPine (Norvasc) 5 mg tablet Indications: Mixed hyperlipidemia Take 1 tablet (5 mg) by mouth once daily. 90 tablet 3 01/02/2023 01/02/2024 Active aspirin 81 mg delayed release oral tablet (18 sources) Platelet Aggregation Inhibitor, Nonsteroidal Anti-inflammatory Drug Start: 07-21-2019 take 1 tablet by mouth once daily aspirin 81 mg EC tablet Take 1 tablet (81 mg) by mouth once daily. 0 07/21/2019 Active fluticasone propionate 0.05 mg/actuat metered dose nasal spray (18 sources) Corticosteroid Start: 07-21-2019 take 2 spray(s) nasal route twice daily fluticasone (Flonase) 50 mcg/actuation nasal spray Administer 2 sprays into affected nostril(s) twice a day. 0 07/21/2019 Active Completed/Discontinued Medications Medication Drug Class(es) Dates Sig (Normalized) Sig (Original) azithromycin 250 mg oral tablet (2 sources) Macrolide Antimicrobial Start: 05-25-2022 Azithromycin 250 MG Oral Tablet TAKE 2 TABLETS ON DAY 1 THEN TAKE 1 TABLET A DAY FOR 4 DAYS. Quantity: 1 Refills: 1 Ordered: 25-May-2022 Mukesh Van MD Start : 25-May-2022 Active benzonatate 200 mg oral capsule (2 sources) Non-narcotic Antitussive Start: 05-25-2022 take 1 capsule by mouth three times daily as needed Benzonatate 200 MG Oral Capsule TAKE 1 CAPSULE 3 TIMES DAILY NEEDED. Quantity: 42 Refills: 1 Ordered: 25-May-2022 Mukesh Van MD Start : 25-May-2022 Active calcium carbonate 1000 mg chewable tablet (17 sources) Start: 07-21-2019 Tums Ultra 1000 1000 MG Oral Tablet Chewable Quantity: 0 Refills: 0 Ordered: 21-Jul-2019 DO Start : 21-Jul-2019 Active codeine phosphate 2 mg/ml / guaiFENesin 20 mg/ml oral solution (2 sources) Opioid Agonist Start: 05-25-2022 take 5-10 mL by mouth every four to six hours as needed for cough guaiFENesin-Codein e 100-10 MG/5ML Oral Solution TAKE 5 - 10 ML EVERY 4 TO 6 HOURS NEEDED FOR COUGH. Quantity: 120 Refills: 0 Ordered: 25-May-2022 Mukesh Van MD Start : 25-May-2022 Active loratadine 10 mg oral tablet (6 sources) Start: 07-21-2019 take 1 tablet by mouth once daily as needed Loratadine 10 MG Oral Tablet TAKE 1 TABLET DAILY NEEDED. Quantity: 30 Refills: 11 Ordered: 08-Feb-2020 Christa Cruz MD Start : 21-Jul-2019 Active Multi-Vitamin Oral Tablet (2 sources) Start: 07-21-2019 take 1 tablet by mouth once daily Multi-Vitamin Oral Tablet TAKE 1 TABLET DAILY. Quantity: 30 Refills: 0 DO Start : 21-Jul-2019 Active Problems Active Problems Problem Classification Problem Date Documented Da te Episodic/Chronic Abdominal hernia (17 sources) Unspecified abdominal hernia without obstruction or gangrene; Translations: [Hernia] Episodic Acquired foot deformities (18 sources) Hammer toe; Translations: [Other hammer toe (acquired)] Onset: 01-02-2023 01-02-2023 Chronic Diabetes mellitus without complication (2 sources) Impaired glucose tolerance; Translations: [Impaired glucose tolerance test (oral)] 01-02-2023 Episodic Disorders of lipid metabolism (19 sources) Hyperlipidemia; Translations: [Other and unspecified hyperlipidemia] Onset: 01-02-2023 01-02-2023 Chronic Ectopic (16 sources) Tubal ; Translations: [Tubal without intrauterine ] Episodic Past or Other Problems Problem Classification Problem Date Documented Da te Episodic/Chronic Unclassified (5 sources) Patient encounter status; Translations: [Screening for breast cancer] Unclassified (16 sources) Finding of menstrual bleeding; Translations: [Menstruation] Results Test Name Value Interpretation Reference Range Facil ity Vital Signs Date Time Vital Sign Value Performing Clinician Facility 01-02-2023 09:54-0400 Body height 152.4 cm Christa Cruz MD Work Phone: [facility] 01-02-2023 09:54-0400 Body mass index (BMI) [Ratio] 42.93 kg/m2 Christa Cruz MD Work Phone: [facility] 01-02-2023 09:54-0400 Body weight 99.7 kg Christa Cruz MD Work Phone: [facility] 01-02-2023 09:54-0400 Diastolic blood pressure 70 mm[Hg] Christa Cruz MD Work Phone: [facility] 01-02-2023 09:54-0400 Heart rate 77 /min Christa Cruz MD Work Phone: [facility] 01-02-2023 09:54-0400 SaO2% (BldA) [Mass fraction] 95 % Christa Cruz MD Work Phone: [facility] 01-02-2023 09:54-0400 Systolic blood pressure 148 mm[Hg] Christa Cruz MD Work Phone: [facility] 07-05-2022 09:49-0500 Body height 152.4 cm Christa Cruz Work Phone: [facility] Work Phone: 07-05-2022 09:49-0500 Body mass index (BMI) [Ratio] 42.58 kg/m2 Christa Cruz Work Phone: [facility] Work Phone: 07-05-2022 09:49-0500 Body surface area Derived from formula 1.94 m2 Christa Cruz Work Phone: [facility] Work Phone: 07-05-2022 09:49-0500 Body weight 98.88 kg Christa Cruz Work Phone: [facility] Work Phone: 07-05-2022 09:49-0500 Diastolic blood pressure 72 mm[Hg] Christa Cruz Work Phone: [facility] Work Phone: 07-05-2022 09:49-0500 Heart rate 78 /min Christa Cruz Work Phone: [facility] Work Phone: 07-05-2022 09:49-0500 SaO2% (BldA) [Mass fraction] 97 % Christa Cruz Work Phone: [facility] Work Phone: 07-05-2022 09:49-0500 Systolic blood pressure 130 mm[Hg] Chirsta Cruz Work Phone: [facility] Work Phone: 05-25-2022 11:20-0500 Body height 160.02 cm Christa Cruz Work Phone: [facility] Work Phone: 05-25-2022 11:20-0500 Body mass index (BMI) [Ratio] 38.65 kg/m2 Christa Izquierdocel Work Phone: [facility] Work Phone: 05-25-2022 11:20-0500 Body surface area Derived from formula 2.01 m2 Christa Izquierdocel Work Phone: [facility] Work Phone: 05-25-2022 11:20-0500 Body weight 98.97 kg Christa Izquierdocel Work Phone: [facility] Work Phone: 05-25-2022 11:20-0500 Diastolic blood pressure 72 mm[Hg] Christa Izquierdocel Work Phone: [facility] Work Phone: 05-25-2022 11:20-0500 Heart rate 84 /min Christa Izquierdocel Work Phone: [facility] Work Phone: 05-25-2022 11:20-0500 SaO2% (BldA) [Mass fraction] 98 % Christa Izquierdocel Work Phone: [facility] Work Phone: 05-25-2022 11:20-0500 Systolic blood pressure 136 mm[Hg] Christa Izquierdocel Work Phone: [facility] Work Phone: 03-12-2022 10:33-0400 Body height 152.4 cm Christa Izquierdocel Work Phone: [facility] [address] Work Phone: 03-12-2022 10:33-0400 Body mass index (BMI) [Ratio] 42.63 kg/m2 Christa Izquierdocel Work Phone: [facility] [address] Work Phone: 03-12-2022 10:33-0400 Body surface area Derived from formula 1.94 m2 Christa D Stencel Work Phone: [facility] [address] Work Phone: 03-12-2022 10:33-0400 Body weight 99 kg Christa D Stencel Work Phone: [facility] [address] Work Phone: 03-12-2022 10:33-0400 Diastolic blood pressure 70 mm[Hg] Christa D Stencel Work Phone: [facility] [address] Work Phone: 03-12-2022 10:33-0400 Systolic blood pressure 136 mm[Hg] Christa D Stencel Work Phone: [facility] [address] Work Phone: 01-02-2022 09:46-0400 Body height 152.4 cm Christa D Stencel Work Phone: [facility] Work Phone: 01-02-2022 09:46-0400 Body mass index (BMI) [Ratio] 42.28 kg/m2 Christa D Stencel Work Phone: [facility] Work Phone: 01-02-2022 09:46-0400 Body surface area Derived from formula 1.93 m2 Christa D Stencel Work Phone: [facility] Work Phone: 01-02-2022 09:46-0400 Body weight 98.2 kg Christa D Stencel Work Phone: [facility] Work Phone: 01-02-2022 09:46-0400 Diastolic blood pressure 72 mm[Hg] Christa D Stencel Work Phone: [facility] Work Phone: 01-02-2022 09:46-0400 Heart rate 78 /min Christa Cruz Work Phone: [facility] Work Phone: 01-02-2022 09:46-0400 SaO2% (BldA) [Mass fraction] 98 % Christa Cruz Work Phone: [facility] Work Phone: 01-02-2022 09:46-0400 Systolic blood pressure 124 mm[Hg] Christa Cruz Work Phone: [facility] Work Phone: 06-20-2021 11:01-0500 Body height 152.4 cm Christa Cruz Work Phone: [facility] Work Phone: 06-20-2021 11:01-0500 Body mass index (BMI) [Ratio] 42.2 kg/m2 Christa Cruz Work Phone: [facility] Work Phone: 06-20-2021 11:01-0500 Body surface area Derived from formula 1.93 m2 Christa Cruz Work Phone: [facility] Work Phone: 06-20-2021 11:01-0500 Body temperature 97.3 [degF] Christa Cruz Work Phone: [facility] Work Phone: 06-20-2021 11:01-0500 Body weight 98 kg Christa Cruz Work Phone: [facility] Work Phone: 06-20-2021 11:01-0500 Diastolic blood pressure 64 mm[Hg] Christa Izquierdocel Work Phone: [facility] Work Phone: 06-20-2021 11:01-0500 Heart rate 76 /min Christa Cruz Work Phone: [facility] Work Phone: 06-20-2021 11:01-0500 SaO2% (BldA) [Mass fraction] 96 % Christa Cruz Work Phone: [facility] Work Phone: 06-20-2021 11:01-0500 Systolic blood pressure 122 mm[Hg] Christa Izquierdocel Work Phone: [facility] Work Phone: 03-08-2021 13:25-0400 Body height 152.4 cm Christa Cruz Work Phone: [place] [address] [place] Work Phone: 03-08-2021 13:25-0400 Body mass index (BMI) [Ratio] 42.93 kg/m2 Christa Izquierdocel Work Phone: [place] [address] [place] Work Phone: 03-08-2021 13:25-0400 Body surface area Derived from formula 1.94 m2 Christa Izquierdocel Work Phone: [place] [address] [place] Work Phone: 03-08-2021 13:25-0400 Body temperature 96.9 [degF] Christa Izquierdocel Work Phone: [employer] [place] [address] [place] Work Phone: 03-08-2021 13:25-0400 Body weight 99.7 kg Christa Izquierdocel Work Phone: [employer] Work Phone: 03-08-2021 13:25-0400 Diastolic blood pressure 70 mm[Hg] Christa Hyde Stencel Work Phone: [employer] [place] [address] [place] Work Phone: 03-08-2021 13:25-0400 Systolic blood pressure 132 mm[Hg] Christa Cruz Work Phone: [address] Work Phone: 12-28-2020 10:06-0400 Body height 152.4 cm Christa Cruz Work Phone: [facility] Work Phone: 12-28-2020 10:06-0400 Body mass index (BMI) [Ratio] 42.67 kg/m2 Christa Cruz Work Phone: [facility] Work Phone: 12-28-2020 10:06-0400 Body surface area Derived from formula 1.94 m2 Christa Cruz Work Phone: [facility] Work Phone: 12-28-2020 10:06-0400 Body temperature 96.6 [degF] Christa Cruz Work Phone: [facility] Work Phone: 12-28-2020 10:06-0400 Body weight 99.11 kg Christa Cruz Work Phone: [facility] Work Phone: 12-28-2020 10:06-0400 Diastolic blood pressure 70 mm[Hg] Christa Izquierdocel Work Phone: [facility] Work Phone: 12-28-2020 10:06-0400 Heart rate 82 /min Christa Cruz Work Phone: [facility] Work Phone: 12-28-2020 10:06-0400 SaO2% (BldA) [Mass fraction] 96 % Christa Cruz Work Phone: [facility] Work Phone: 12-28-2020 10:06-0400 Systolic blood pressure 124 mm[Hg] Christa Izquierdocel Work Phone: [facility] Work Phone: 12-12-2020 10:51-0400 Body height 152.4 cm Christa Cruz Work Phone: [facility] Work Phone: 12-12-2020 10:51-0400 Body mass index (BMI) [Ratio] 42.87 kg/m2 Christa Cruz Work Phone: [facility] Work Phone: 12-12-2020 10:51-0400 Body surface area Derived from formula 1.94 m2 Christa Cruz Work Phone: [facility] Work Phone: 12-12-2020 10:51-0400 Body temperature 97.1 [degF] Christa Cruz Work Phone: [facility] Work Phone: 12-12-2020 10:51-0400 Body weight 99.57 kg Christa Cruz Work Phone: [facility] Work Phone: 12-12-2020 10:51-0400 Diastolic blood pressure 64 mm[Hg] Christa Izquierdocel Work Phone: [facility] Work Phone: 12-12-2020 10:51-0400 Heart rate 81 /min Christa Izquierdocel Work Phone: [facility] Work Phone: 12-12-2020 10:51-0400 SaO2% (BldA) [Mass fraction] 97 % Christa Cruz Work Phone: [facility] Work Phone: 12-12-2020 10:51-0400 Systolic blood pressure 122 mm[Hg] Christa Barrett Nancy Work Phone: [facility] Work Phone: 06-23-2020 11:31-0500 BMI (Body Mass Index) 43.55 kg/m2 Christa Izquierdoflorencia [facility] Work Phone: 06-23-2020 11:31-0500 Body Temperature 97.5 [degF] Christa Cruz [facility] Work Phone: 06-23-2020 11:31-0500 Body weight 101.16 kg Christa Cruz [facility] Work Phone: 06-23-2020 11:31-0500 BP Diastolic 82 mm[Hg] [facility]oflorencia [facility] Work Phone: 06-23-2020 11:31-0500 BP Systolic 128 mm[Hg] [facility] Work Phone: 06-23-2020 11:31-0500 BSA (Body Surface Area) 1.95 m2 Christ[facility] Work Phone: 06-23-2020 11:31-0500 Height 152.4 cm Christa Izquierdoflorencia [facility] Work Phone: 06-23-2020 11:31-0500 Pulse (Heart Rate) 85 /min Christa Izquierdoflorencia [facility] Work Phone: 06-23-2020 11:31-0500 Pulse Oximetry 95 % [facility] Work Phone: 07-28-2019 10:23-0400 BMI (Body Mass Index) 42.38 kg/m2 Christa Izquierdoflorencia [facility] Work Phone: 07-28-2019 10:23-0400 Body weight 98.43 kg Christa Cruz [facility] Work Phone: 07-28-2019 10:23-0400 BP Diastolic 76 mm[Hg] [facility] Work Phone: 07-28-2019 10:23-0400 BP Systolic 144 mm[Hg] Christ[facility] Work Phone: 07-28-2019 10:23-0400 BSA (Body Surface Area) 1.93 m2 Christa [facility] Work Phone: 07-28-2019 10:23-0400 Height 152.4 cm [facility] Nanyc [facility] Work Phone: 07-28-2019 10:23-0400 Pulse (Heart Rate) 96 /min Christa Nancy [facility] Work Phone: 07-28-2019 10:23-0400 Pulse Oximetry 94 % [facility] Work Phone: Encounters Encounter Date Encounter Type Care Provider Facility Start: 01-02-2023 End: 01-02-2023 Office outpatient visit 25 minutes Christa Cruz MD Work Phone: [facility] Procedures Date Procedure Procedure Detail Performing Clinician Start: 05-29-2022 Nonphysician telepho ne assessment 5-10 min Christa Cruz Work Phone: Start: 04-30-2022 Nonphysician telepho ne assessment 21-30 min Christa Cruz Work Phone: Start: 04-11-2022 Mammography Christa Chavez MD Work Phone: Start: 02-01-2021 Colonoscopy Christa Chavez MD Work Phone: Start: 07-28-2019 CBC W Auto Different ial panel - Blood Christa Cruz Start: 07-28-2019 Comprehensive metabo lic 2000 panel Christa Cruz Start: 07-28-2019 Lipid panel Christa Chavez Start: 03-30-2016 Colonoscopy Christa Cruz Work Phone: Appendectomy Christa Cruz Arthroplasty Christa domingo Work Phone: Plan of Treatment Date Care Activity Detail Author Start: 02-01-2031 Screening for malignant neoplasm of colon [facility] Start: 08-21-2025 Diabetes mellitus screening Diabetes Screening [facility] Start: 07-08-2023 End: 07-08-2023 Patient encounter procedure 07/08/2023 2:00 PM EST Office Visit [facility] [address] [place] [id number] Christa Cruz MD [address] [place], [place] [address] [facility] Start: 07-06-2023 Medicare Annual Wellness Visit Medicare Annual Wellness Visit (AWV) [facility] Start: 04-11-2023 Screening for malignant neoplasm of breast Mammogram [facility] Start: 01-11-2023 Influenza vaccination Influenza Vaccine (#1) [facility] Start: 01-02-2023 End: 01-03-2024 CBC panel - Blood by Automated count CBC Lab Routine Mixed hyperlipidemia Expected: 01/02/2023 (Approximate), Expires: 01/03/2024 [facility] Service Area Work Phone: Immunizations Immunization Date Immunization Notes Care Provider Fa [facility] 04-25-2022 Pfizer COVID-19 Vac Bivalent 30 MCG/0.3ML Intramuscular Suspension Christa Cruz Work Phone: [facility] Work Phone: 03-19-2022 Fluzone High-Dose Quadrivalent 0.7 ML Intramuscular Suspension Prefilled Syringe Christa Cruz Work Phone: [facility] [address] Work Phone: 03-19-2022 influenza virus vacc ine, unspecified formulation Christa Cruz MD Work Phone: [facility] Work Phone: 06-20-2021 pneumococcal polysaccharide vaccine, 23 valent; Translations: [Pneumococcal polysaccharide vaccine, 23 valent] Christa Cruz Work Phone: [facility] Work Phone: Payers Date Payer Category Payer Medicare ANTHEM MEDICARE ANTH MEDICARE ADVANTAGE [id number] 2021-Present [address] [place] [address] [id number] 2015 Unknown [id number] 1955 Unknown [id number] 1954 Unknown [id number] 1954 Unknown [id number] 1954 Unknown [id number] 1954 Unknown [id number] 1954 Unknown [id number] 1954 Unknown [id number] Unknown Unknown [id number] Social History Date Type Detail Facility Start: 01-02-2023 Former smoker Former smoker [facility] Work Phone: Start: 01-02-2023 Tobacco smoking status NHIS Ex-smoker [facility] History of tobacco use Current smoker [facility] Work Phone: History of tobacco use Cigarette Smoker [facility] Work Phone: Start: 01-02-2023 Tobacco use and exposure Smokeless tobacco non-user [facility] Work Phone: Start: 01-02-2023 Alcohol intake Ex-drinker (finding) [facility] Work Phone: Start: 01-02-2023 Tobacco use panel [facility] Work Phone: Start: 01-02-2023 Alcohol Comment 1 or 2 a month [facility] Work Phone: Start: 1955 Sex Assigned At Not on file [facility] Work Phone: NEGATED: Highlighted row - - -[employer] [facility] Work Phone: Functional Status Date Assessment Result Facility NEGATED: Highlighted row Functional performance Functional status health issues are not documented Disease [facility] Work Phone: Mental Status Date Assessment Result Facility NEGATED: Highlighted row Cognitive function [Interpretation] Cognitive status health issues are not documented Disease [facility] Work Phone: Clinical Notes 05-13-2020 to 01-02-2023 Christa Cruz MD - 01/02/2023 9:40 AM EDT Note Date & Type Note Facility 01-02-2023 History of Present illness Narrative Subjective Patient ID: Elma Sow is a 67 y.o. female who presents for Follow-up (6 mo). HPI Since the last office visit there have been no interval operations, hospitalizations, important illnesses or injuries. HTN-Takes and tolerates meds without side effects. No alcohol. no tobacco. no exercise. low salt. Reviewed recommendation for 150 minutes of exercise per week including 2 days of weight training if over age 50 Trying to lose weight Takes nsaid half rx dose daily for djd. Right sciatica Hyper lipid no active treatment statin Review of Systems General-no fatigue weight to within 10 pounds ENT no problems with vision swallowing Cardiac no chest pains palpitations change in exercise tolerance or capacity Pulmonary no cough shortness of breath GI no heartburn or abdominal pain Musculoskeletal no joint pains Objective BP 148/70 Pulse 77 Ht 1.524 m (5') Wt 99.7 kg (219 lb 12.8 oz) SpO2 95% BMI 42.93 kg/m Physical Exam General: Alert, No acute distress. Appears stated age Eye: Pupils are equal, round and reactive to light, Extraocular movements are intact, Normal conjunctiva. Neck: Supple, Non-tender, No carotid bruit, No jugular venous distention, No lymphadenopathy, No thyromegaly. Respiratory: Lungs are clear to auscultation, Respirations are non-labored, Breath sounds are equal. Cardiovascular: Normal rate, Regular rhythm, No murmur. Gastrointestinal: Soft, Non-tender, No organomegaly. No solid or pulsatile mass Integumentary: Warm, Dry. No concerning lesions on exposed areas Neurologic: Alert, Oriented. Gross and fine motor intact, CN 2-12 intact Psychiatric: Cooperative, Appropriate mood & affect. Assessment/Plan Problem List Items Addressed This Visit Back pain Hyperlipidemia Relevant Medications amLODIPine (Norvasc) 5 mg tablet hydroCHLOROthiazide (HYDRODiuril) 25 mg tablet valsartan (Diovan) 320 mg tablet Other Relevant Orders CBC Comprehensive Metabolic Panel Lipid Panel Follow Up In Primary Care - Established Hypertension - Primary Relevant Orders Follow Up In Primary Care - Established Seasonal allergic rhinitis due to pollen Relevant Orders Follow Up In Primary Care - Established Other Visit Diagnoses IGT (impaired glucose tolerance) Relevant Orders Hemoglobin A1C Follow Up In Primary Care - Established Encounter for screening mammogram for malignant neoplasm of breast Relevant Orders BI mammo bilateral screening tomosynthesis documented in this encounter [facility] Work Phone: 04-30-2022 History of Present illness Narrative Please review HPI from initial genetics appointment on 04/30/2022. [id number] Work Phone: 03-12-2022 Note 44 Date of Procedure: 03/12/2022 Pathologist: [facility], Cytology Date Reported: 03/19/2022 Date Received: 03/12/2022 Submitting Physician: ELBERT ROSARIO MD Attending Physician: ELBERT ROSARIO MD FINAL CYTOLOGICAL INTERPRETATION A. THINPREP PAP CERVICAL: Specimen Adequacy: SATISFACTORY FOR EVALUATION. Quality Indicator: Absence of endocervical/transformation zone component. Quality Indicator: Partially obscuring inflammation. General Categorization: NEGATIVE FOR INTRAEPITHELIAL LESION OR MALIGNANCY. Descriptive Interpretation: CELLULAR CHANGES CONSISTENT WITH ATROPHY. HIGH RISK HPV TEST RESULT: HPV GENOTYPE 16 NEGATIVE HPV GENOTYPE 18 NEGATIVE HPV GENOTYPE OTHER NEGATIVE Reference Range: Negative QC review performed at [facility], [address] [place] [address] Testing for high-risk (HR) type of human papilloma virus (HPV) is performed by the [employer] tigre HPV Test. The tigre HPV Test is a qualitative polymerase chain reaction that amplifies DNA of HPV16, HPV18 and 12 other high-risk HPV types (31, 33, 35, 39, 45, 51, 52, 56, 58, 59, 66, and 68) associated with cervical cancer and its precursor lesions. A positive result indicates the presence of HPV DNA due to one or more of the 14 genotypes: 16, 18, 31, 33, 35, 39, 45, 51, 52, 56, 58, 59, 66, and 68. Negative results indicate HPV DNA concentrations are undetectable or below the pre-set threshold for detection. False negative results may be associated with unoptimized sampling. A negative HR HPV result does not exclude the possibility of future cytologic HSIL or underlying CIN2-3 or cancer. This test is approved for cervical specimens by the US Food and Drug Administration. Results of this test should be interpreted in conjunction with the patient?s Pap test results. Please refer to ASCCP current guidelines for the use of HPV DNA testing, result interpretation, and patient management. The performance of this test was verified by the [facility] Laboratory at [facility]. The lab is certified under the Clinical Laboratory Amendments of 1988 (CLIA 88) as qualified to perform high complexity clinical laboratory testing. This specimen has been analyzed by the [employer] RXPrep Imaging System ([employer] an automated imaging and review system, which assists the laboratory in evaluating cells on ThinPrep Pap tests. Following automated imaging, selected green from every slide were reviewed by a supervisor of communications and/or pathologist. Electronically Signed Out By [facility], Cytology//CRR/JMD By the signature on this report, the individual or group listed as making the Final Interpretation/Diagnosis certifies that they have reviewed this case. Diagnostic interpretation performed at [facility] [address] [facility] [place] [address] Educational Note: Cervical cytology is a screening procedure primarily for squamous cancers and precursors and has associated false-negative and false-positive results as evidenced by published data. Your patient?s test should be interpreted in this context, together with patient?s history and clinical findings. Regular sampling and follow-up of unexplained clinical signs and symptoms are recommended to minimize false negative results. Clinical History Date of Last Menstrual Period: Menopause 2004 Other Clinical Conditions: COTEST HPV(Genotype) except for ASC-H, HSIL, Carcinoma - Include HPV Genotype testing Annual Clinical Diagnosis History: Encounter for screening mammogram for breast cancer - (Z12.31) Source of Specimen A: THINPREP PAP CERVICAL [facility] Department of Pathology [address] [place] [id number] [facility] documented in this encounter [facility] Work Phone: History of Present illness NarrativePresents for annual exam. She voices no complaints and is doing well. Denies any bowel or bladder problems. Denies any breast problems. Denies any postmenopausal bleeding.[address] Work Phone: History of Present illness Narrative* The patient is being seen for the initial annual wellness visit. * Past Medical, Surgical and Family History: reviewed and updated in chart. * Interval History: Patient has not been hospitalized previously. * Medications and Supplements: Review of all medications by a prescribing practitioner or clinical pharmacist (such as prescriptions, OTCs, herbal therapies and supplements) documented in the medical record. * No, the patient is not using opioids. * Patient Self Assessment of Health Status: excellent. * Tobacco use: Non-User * Alcohol use: User occ. * Illicit drug use: Non-User * Current diet: well balanced diet. * Exercise Frequency: infrequently. * Depression/Suicide Screening: . * During the past 2 weeks, the patient has not felt down, depressed or hopeless. * During the past 2 weeks, the patient has not felt little interest or pleasure in doing things. * Hearing Impairment: none. * Cognitive Impairment: No cognitive impairment observed, patient or family reported no cognitive impairment. * Bathing: performs independently. * Dressing: performs independently. * Walking: performs independently. * Toileting: performs independently. * Feeding: performs independently. * Personal Hygiene: performs independently. * Bowels: continent. * Bladder: continent. * Managing Finances: performs independently. * Shopping: performs independently. * Managing Medications: performs independently. * Housework / Basic Home Maintenance: performs independently. * Handling Transportation: performs independently. * Preparing Meals: performs independently. * Using the Telephone/ Communication Devices: performs independently. * Falls Risk Screening:. ELMA has not fallen in the last 6 months. * Home safety risk factors: no grab bars in the bathroom. * Since the last office visit there have been no interval operations, hospitalizations, important illnesses or injuries. * hand cmc arthro , cyst and dequervains in december 31 * HTN-Takes and tolerates meds without side effects. No alcohol. no tobacco. no exercise. low salt. Reviewed recommendation for 150 minutes of exercise per week including 2 days of weight training if over age 50 * Hyperlipidemia- is on statin and a prudent diet. * recent scitica flare rev christie bonds provided demo provided * on [employer] and [employer] [facility] Work Phone: History of Present illness Narrative* Since the last office visit there have been no interval operations, hospitalizations, important illnesses or injuries. * dr sherman staerted statin yrs ago , has + fam hx and htn. * HTN-Takes and tolerates meds without side effects. No alcohol. no tobacco. no exercise. low salt. Reviewed recommendation for 150 minutes of exercise per week including 2 days of weight training if over age 50 * Hyperlipidemia- is on statin and a prudent diet. [facility] Work Phone: History of Present illness Narrative* HISTORY OF PRESENT ILLNESS: * - Ms. ELMA SOW is a 66 year year old female with a family history of ovarian cancer. * - She was referred to the Cancer [facility]etics [facility] at [facility] by her physician, Dr. Elbert Rosario MD. * - Ms. SOW is interested in genetic testing to clarify her personal risks for cancer, as well as the risks to her family members. * - The appointment today was conducted via telephone due to the current COVID- 19 pandemic. * CANCER MEDICAL HISTORY: * Personal History of Cancer? * - No * Other ongoing health issues? * -None reported * PREVIOUS GENETIC TESTING? * -No * CANCER SCREENING HISTORY: * Mammograms? * - Started at age 39, most recent March 2022; has had stable nodule in upper medial aspect of left breast. Multiple benign appearing bilateral axillary lymph nodes. No significant change since prior study. * Other imaging? * -Ultrasound follow up several times due to dense breast tissue * Clinical breast exam? * -Yes, annually * Breast biopsies? * -History of negative needle biopsy about 10-15 years ago * Vaginal ultrasound? * - Annual since her mother's diagnosis in 2003, hysteroscopy after one due to thickening of endometrial wall. * -Most recent was 03/27/22, right ovarian cyst stable from previous exam * CA-125? * - Was having this drawn annually until about 3-4 years ago. Never elevated. * PAP smear? * -Every 2 years, most recent February 2022 * Any abnormal? * -One in 30s * Colonoscopy? * - First at 49, polyp removed at that time. Patient was going every 5 years until most recent exam in 2020. At that time, colonoscopy was clear and patient was cleared from colonoscopies for the next 10 years. * Endoscopy? * -One in 2018 due to GI upset, negative. * Hysterectomy? * -No * Oophorectomy? * -No * Dermatology? * - Went for a skin check many years ago, no abnormalities identified * REPRODUCTIVE HISTORY: * # Children: * - 2 * # Pregnancies: * - 3 * Age first : * -30 * Breast feeding?: * -9 weeks total * Menarche (age): * -12 * Menopause (age): * -Early 50s * OCP: * -9 years * HRT: * -None * SOCIAL HISTORY: * - History of smoking ages [age] * FAMILY HISTORY: * A 4-generation pedigree was obtained. The family history was significant for the following: * -Brother (living, 69) with history of benign skin findings, otherwise healthy. * -Niece (living, 30s, daughter of above brother) with history of multiple breast biopsies, all benign. * -Mother (, 74) had ovarian cancer diagnosed at age 68. This was found incidentally on an ultrasound initially meant to evaluate aortic aneurysm. She also had a history of several benign skin findings. * -Maternal uncle (, 70s or 80s) of an aortic aneurysm. * -Maternal first cousin (son of above uncle, living, 69) had melanoma found on his back at age 40. This was caught early and required no further treatment. * -Maternal first cousin (son of above uncle, , 18) of adrenal insufficiency. * -Maternal first cousin (daughter of second maternal uncle, ) of kidney failure. * -Father (, 69) was diagnosed with melanoma originally identified in the sclera at age 65. This metastasized to the brain. * Consanguinity and Ashkenazi Gnosticism ancestry were denied. The patient s maternal side is of [place] descent, and the patient s paternal side is of [place] descent. The remainder of the family history was negative for kidney disease, heart disease, cancer, muscle disease, and blood disorders. [facility] Work Phone: History of Present illness Narrative* It is really mostly upper airway congestion nasal congestion cough sometimes productive with a little bit of loose stool. * The throat and ears are getting better but the sinus pressure and cough are still not any better. * Benign exam with good air exchange in the lungs. * Z-Regan * Prednisone for 5 days * Tessalon cough pills * Warned her that any antibiotic could make the diarrhea/loose stools worse. Please call if she has major troubles. [facility] Work Phone: History of Present illness Narrative* The patient is being seen for the initial annual wellness visit. * Past Medical, Surgical and Family History: reviewed and updated in chart. * Interval History: Patient has not been hospitalized previously. * Medications and Supplements: Review of all medications by a prescribing practitioner or clinical pharmacist (such as prescriptions, OTCs, herbal therapies and supplements) documented in the medical record. * No, the patient is not using opioids. * Patient Self Assessment of Health Status: excellent. * Tobacco use: Non-User * Alcohol use: User rare. * Illicit drug use: Non-User * Current diet: well balanced diet. * Exercise Frequency: infrequently. * Depression/Suicide Screening: . * During the past 2 weeks, the patient has not felt down, depressed or hopeless. * During the past 2 weeks, the patient has not felt little interest or pleasure in doing things. * Hearing Impairment: none. * Cognitive Impairment: No cognitive impairment observed, patient or family reported no cognitive impairment. * Bathing: performs independently. * Dressing: performs independently. * Walking: performs independently. * Toileting: performs independently. * Feeding: performs independently. * Personal Hygiene: performs independently. * Bowels: continent. * Bladder: continent. * Managing Finances: performs independently. * Shopping: performs independently. * Managing Medications: performs independently. * Housework / Basic Home Maintenance: performs independently. * Handling Transportation: performs independently. * Preparing Meals: performs independently. * Using the Telephone/ Communication Devices: performs independently. * Falls Risk Screening:. ELMA has not fallen in the last 6 months. * Home safety risk factors: no grab bars in the bathroom. * Advance directives:. Advance Care Planning discussed and documented in the medical record, patient did not wish or was not able to name a surrogate decision maker or provide an advance care plan. Patient has no living will. Patient has no healthcare POA. * Since the last office visit there have been no interval operations, hospitalizations, important illnesses or injuries. * january 01 lab all ok except glu 123, pgm with dm * HTN-Takes and tolerates meds without side effects. No alcohol. no tobacco. no exercise. low salt. Reviewed recommendation for 150 minutes of exercise per week including 2 days of weight training if over age 50 * Hyperlipidemia- is on statin 50% compliance to avoid ache and a liberal diet. [facility] Work Phone: Summary Purpose Family History Grandparent Name Dates Details Family history of diabetes m ellitus(V18.0, Z83.3) Status:Active Mother Name Dates Details Family history of myocardial infarction(V17.3, Z82.49) Status:Active Family history of coronary a rtery disease(V17.3, Z82.49) Status:Active Family history of cardiac di sorder(V17.49, Z82.49) Status:Active Family history of malignant neoplasm of ovary(V16.41, Z80.41) Status:Active Father Name Dates Details Family history of coronary a rtery disease(V17.3, Z82.49) Status:Active Family history of cardiac di sorder(V17.49, Z82.49) Status:Active Family history of malignant melanoma(V16.8, Z80.8) Status:Active Brother Name Dates Details Family history of hyperlipid emia(V18.19, Z83.438) Status:Active Grandparent Name Dates Details Family history of diabetes m ellitus(V18.0, Z83.3) Status:Active Mother Name Dates Details Family history of myocardial infarction(V17.3, Z82.49) Status:Active Family history of coronary a rtery disease(V17.3, Z82.49) Status:Active Family history of cardiac di sorder(V17.49, Z82.49) Status:Active Family history of malignant neoplasm of ovary(V16.41, Z80.41) Status:Active Father Name Dates Details Family history of coronary a rtery disease(V17.3, Z82.49) Status:Active Family history of cardiac di sorder(V17.49, Z82.49) Status:Active Family history of malignant melanoma(V16.8, Z80.8) Status:Active Brother Name Dates Details Family history of hyperlipid emia(V18.19, Z83.438) Status:Active Unknown Family Member Name Dates Details Family history of myocardial infarction: Mother(V17.3, Z82.49) Status:Active Family history of coronary a rtery disease: Mother, Father(V17.3, Z82.49) Status:Active Family history of cardiac di sorder: Mother, Father(V17.49, Z82.49) Status:Active Family history of malignant melanoma: Father(V16.8, Z80.8) Status:Active Family history of hyperlipid emia: Brother(V18.19, Z83.438) Status:Active Family history of diabetes m ellitus: Grandparent(V18.0, Z83.3) Status:Active Family history of malignant neoplasm of ovary: Mother(V16.41, Z80.41) Status:Active Unknown Family Member Name Dates Details Family history of myocardial infarction: Mother(V17.3, Z82.49) Status:Active Family history of coronary a rtery disease: Mother, Father(V17.3, Z82.49) Status:Active Family history of cardiac di sorder: Mother, Father(V17.49, Z82.49) Status:Active Family history of malignant melanoma: Father(V16.8, Z80.8) Status:Active Family history of hyperlipid emia: Brother(V18.19, Z83.438) Status:Active Family history of diabetes m ellitus: Grandparent(V18.0, Z83.3) Status:Active Family history of malignant neoplasm of ovary: Mother(V16.41, Z80.41) Status:Active Unknown Family Member Name Dates Details Family history of myocardial infarction: Mother(V17.3, Z82.49) Status:Active Family history of coronary a rtery disease: Mother, Father(V17.3, Z82.49) Status:Active Family history of cardiac di sorder: Mother, Father(V17.49, Z82.49) Status:Active Family history of malignant melanoma: Father(V16.8, Z80.8) Status:Active Family history of hyperlipid emia: Brother(V18.19, Z83.438) Status:Active Family history of diabetes m ellitus: Grandparent(V18.0, Z83.3) Status:Active Family history of malignant neoplasm of ovary: Mother(V16.41, Z80.41) Status:Active Unknown Family Member Name Dates Details Family history of myocardial infarction: Mother(V17.3, Z82.49) Status:Active Family history of coronary a rtery disease: Mother, Father(V17.3, Z82.49) Status:Active Family history of cardiac di sorder: Mother, Father(V17.49, Z82.49) Status:Active Family history of malignant melanoma: Father(V16.8, Z80.8) Status:Active Family history of hyperlipid emia: Brother(V18.19, Z83.438) Status:Active Family history of diabetes m ellitus: Grandparent(V18.0, Z83.3) Status:Active Family history of malignant neoplasm of ovary: Mother(V16.41, Z80.41) Status:Active Unknown Family Member Name Dates Details Family history of myocardial infarction: Mother(V17.3, Z82.49) Status:Active Family history of coronary a rtery disease: Mother, Father(V17.3, Z82.49) Status:Active Family history of cardiac di sorder: Mother, Father(V17.49, Z82.49) Status:Active Family history of malignant melanoma: Father(V16.8, Z80.8) Status:Active Family history of hyperlipid emia: Brother(V18.19, Z83.438) Status:Active Family history of diabetes m ellitus: Grandparent(V18.0, Z83.3) Status:Active Family history of malignant neoplasm of ovary: Mother(V16.41, Z80.41) Status:Active Unknown Family Member Name Dates Details Family history of myocardial infarction: Mother(V17.3, Z82.49) Status:Active Family history of coronary a rtery disease: Mother, Father(V17.3, Z82.49) Status:Active Family history of cardiac di sorder: Mother, Father(V17.49, Z82.49) Status:Active Family history of malignant melanoma: Father(V16.8, Z80.8) Status:Active Family history of hyperlipid emia: Brother(V18.19, Z83.438) Status:Active Family history of diabetes m ellitus: Grandparent(V18.0, Z83.3) Status:Active Family history of malignant neoplasm of ovary: Mother(V16.41, Z80.41) Status:Active Unknown Family Member Name Dates Details Family history of coronary a rtery disease: Mother, Father(V17.3, Z82.49) Status:Active Family history of cardiac di sorder: Mother, Father(V17.49, Z82.49) Status:Active Family history of myocardial infarction: Mother(V17.3, Z82.49) Status:Active Family history of malignant melanoma: Father(V16.8, Z80.8) Status:Active Family history of hyperlipid emia: Brother(V18.19, Z83.438) Status:Active Family history of diabetes m ellitus: Grandparent(V18.0, Z83.3) Status:Active Family history of malignant neoplasm of ovary: Mother(V16.41, Z80.41) Status:Active Unknown Family Member Name Dates Details Family history of myocardial infarction: Mother(V17.3, Z82.49) Status:Active Family history of coronary a rtery disease: Mother, Father(V17.3, Z82.49) Status:Active Family history of cardiac di sorder: Mother, Father(V17.49, Z82.49) Status:Active Family history of malignant melanoma: Father(V16.8, Z80.8) Status:Active Family history of hyperlipid emia: Brother(V18.19, Z83.438) Status:Active Family history of diabetes m ellitus: Grandparent(V18.0, Z83.3) Status:Active Family history of malignant neoplasm of ovary: Mother(V16.41, Z80.41) Status:Active Unknown Family Member Name Dates Details Family history of myocardial infarction: Mother(V17.3, Z82.49) Status:Active Family history of coronary a rtery disease: Mother, Father(V17.3, Z82.49) Status:Active Family history of cardiac di sorder: Mother, Father(V17.49, Z82.49) Status:Active Family history of malignant melanoma: Father(V16.8, Z80.8) Status:Active Family history of hyperlipid emia: Brother(V18.19, Z83.438) Status:Active Family history of diabetes m ellitus: Grandparent(V18.0, Z83.3) Status:Active Family history of malignant neoplasm of ovary: Mother(V16.41, Z80.41) Status:Active Unknown Family Member Name Dates Details Family history of myocardial infarction: Mother(V17.3, Z82.49) Status:Active Family history of coronary a rtery disease: Mother, Father(V17.3, Z82.49) Status:Active Family history of cardiac di sorder: Mother, Father(V17.49, Z82.49) Status:Active Family history of malignant melanoma: Father(V16.8, Z80.8) Status:Active Family history of hyperlipid emia: Brother(V18.19, Z83.438) Status:Active Family history of diabetes m ellitus: Grandparent(V18.0, Z83.3) Status:Active Family history of malignant neoplasm of ovary: Mother(V16.41, Z80.41) Status:Active Unknown Family Member Name Dates Details Family history of myocardial infarction: Mother(V17.3, Z82.49) Status:Active Family history of coronary a rtery disease: Mother, Father(V17.3, Z82.49) Status:Active Family history of cardiac di sorder: Mother, Father(V17.49, Z82.49) Status:Active Family history of malignant melanoma: Father(V16.8, Z80.8) Status:Active Family history of hyperlipid emia: Brother(V18.19, Z83.438) Status:Active Family history of diabetes m ellitus: Grandparent(V18.0, Z83.3) Status:Active Family history of malignant neoplasm of ovary: Mother(V16.41, Z80.41) Status:Active Unknown Family Member Name Dates Details Family history of myocardial infarction: Mother(V17.3, Z82.49) Status:Active Family history of coronary a rtery disease: Mother, Father(V17.3, Z82.49) Status:Active Family history of cardiac di sorder: Mother, Father(V17.49, Z82.49) Status:Active Family history of malignant melanoma: Father(V16.8, Z80.8) Status:Active Family history of hyperlipid emia: Brother(V18.19, Z83.438) Status:Active Family history of diabetes m ellitus: Grandparent(V18.0, Z83.3) Status:Active Family history of malignant neoplasm of ovary: Mother(V16.41, Z80.41) Status:Active Unknown Family Member Name Dates Details Family history of myocardial infarction: Mother(V17.3, Z82.49) Status:Active Family history of coronary a rtery disease: Mother, Father(V17.3, Z82.49) Status:Active Family history of cardiac di sorder: Mother, Father(V17.49, Z82.49) Status:Active Family history of malignant melanoma: Father(V16.8, Z80.8) Status:Active Family history of hyperlipid emia: Brother(V18.19, Z83.438) Status:Active Family history of diabetes m ellitus: Grandparent(V18.0, Z83.3) Status:Active Family history of malignant neoplasm of ovary: Mother(V16.41, Z80.41) Status:Active Unknown Family Member Name Dates Details Family history of myocardial infarction: Mother(V17.3, Z82.49) Status:Active Family history of coronary a rtery disease: Mother, Father(V17.3, Z82.49) Status:Active Family history of cardiac di sorder: Mother, Father(V17.49, Z82.49) Status:Active Family history of malignant melanoma: Father(V16.8, Z80.8) Status:Active Family history of hyperlipid emia: Brother(V18.19, Z83.438) Status:Active Family history of diabetes m ellitus: Grandparent(V18.0, Z83.3) Status:Active Family history of malignant neoplasm of ovary: Mother(V16.41, Z80.41) Status:Active Advance Directives No Advanced Directives Records FoundNo Advanced Directives Records FoundNo Advanced Directives Records FoundNo Advanced Directives Records FoundNo Advanced Directives Records FoundNo Advanced Directives Records FoundNo Advanced Directives Records Found Chief Complaint PRE OP CLEARANCE CHRISTIAN ORTHOPEAEDIC6 MO FU HL HTNPatient is here for pelvic and breast exam. Menopause in 2004. Patient does not do regular self breast exams and has no concerns at this time.MCW...6 MO FU6 MO FU. REV LABS* A telephone visit (audio only) between the patient (at the originating site) and the provider (at the distant site) was utilized to provide this telehealth service. * Patient referred to genetic counseling due to mother's past diagnosis of ovarian cancer. * A telephone visit (audio only) between the patient (at the originating site) and the provider (at the distant site) was utilized to provide this telehealth service. * Patient referred to genetic counseling due to mother's past diagnosis of ovarian cancer. COUGH, DIARRHEA X1 MO- HAS TRIED IMMODIUM AD- MUCINEX- DAYQUIL, NYQUIL, ROBITUSSIN(MADE DIARRHEA WORSE)* A telephone visit (audio only) between the patient (at the originating site) and the provider (at the distant site) was utilized to provide this telehealth service. * Patient returns to genetic counseling to discuss results of genetic testing ordered at initial appointment on 04/30/2022. MCW..6 MO FU Reason for Referral Specialty Diagnoses / Procedures Referred By Zahida cardoza Referred To Contact Radiology Diagnoses Encounter for screening mammogram for malignant neoplasm of breast Procedures BI mammo bilateral screening tomosynthesis Christa Cruz MD [address] [id number] Referral ID Status Reason Start Date Expiration Date Visits Requested Visits Authorized [id number] Authorized Perform Procedure 01/02/2023 07/01/2023 1 1 Specialty Diagnoses / Procedures Referred By Zahida cardoza Referred To Contact Primary Care Diagnoses Mixed hyperlipidemia Primary hypertension Seasonal allergic rhinitis due to pollen IGT (impaired glucose tolerance) Procedures Follow Up In Primary Care - Established Christa Cruz MD [address] [place] [address] Referral ID Status Reason Start Date Expiration Date V isits Requested Visits Authorized [id number] Authorized 01/02/2023 07/01/2023 1 1 Additional Source Comments INFORMATION SOURCE (unrecogn ized section and content) DATE CREATED AUTHOR AUTHOR'S ORGANIZ ATION 11/30/2017 [facility] DATE CREATED AUTHOR AUTHOR'S ORGANIZ ATION 02/12/2019 [facility] DATE CREATED AUTHOR AUTHOR'S ORGANIZ ATION 02/15/2019 [facility] DATE CREATED AUTHOR AUTHOR'S ORGANIZ ATION 04/29/2020 [facility] DATE CREATED AUTHOR AUTHOR'S ORGANIZ ATION 07/06/2022 [facility] DATE CREATED AUTHOR AUTHOR'S ORGANIZ ATION 07/06/2022 [facility] Reason for Visit (unrecogniz ed section and content) Care Teams (unrecognized sec tion and content) FOR RECORDS PERTAINING TO PATIENTS WHO ARE OR HAVE BEEN ENROLLED IN A CHEMICAL DEPENDENCY/SUBSTANCEABUSE PROGRAM, SOME INFORMATION MAY BE OMITTED. This clinical summary was aggregated from multiple sources. Caution should be exercised in using it in the provision of clinical care. This summary normalizes information from multiple sources, and as a consequence, information in this document may materially change the coding, format and clinical context of patient data. In addition, data may be omitted in some cases. CLINICAL DECISIONS SHOULD BE BASED ON THE PRIMARY CLINICAL RECORDS. [facility] [employer] provides no warranty or guarantee of the accuracy or completeness of information in this document.
[2023-07-12 14:10] LABS: PROEL- A/G Ratio 0.9 (0.7-1.7); PROEL- Albumin 3.3 g/dL (2.9-4.4); PROEL- Alpha-1 Globulin 0.3 g/dL (0.0-0.4); PROEL- Alpha-2 Globulin 0.7 g/dL (0.4-1.0); PROEL- Beta Globulin 1.4 g/dL (0.7-1.3); PROEL- Gamma Globulin 1.3 g/dL (0.4-1.8); PROEL- Globulin, Total 3.7 g/dL (2.2-3.9); PROEL-M-Spike Not Observed g/dL (Not Observed)
== END | disposition home or self-care (01) ==
LOC: LAB 10:12
PROVIDERS: PCP Family Medicine; Referring Provider Family Medicine; Visit Provider Family Medicine
DX: R77.1 Abnormality of globulin (principal); R73.02 Impaired glucose tolerance (oral)
CPT/HCPCS: 36415; 84165

== ENCOUNTER → 2023-11-01 | Outpatient (CLI) | payer MEDICARE, SELFPAY ==
--- NOTE | 2023-11-01 07:36 | VDLE_ITS ---
Reason For Study: Edema RLE RIGHT LEFT GSV is normal. CFV is compressible, spontaneous, phasic, CFV is compressible, spontaneous, phasic, competent, and demonstrates normal competent and demonstrates normal augmentation. augmentation. FV is compressible, spontaneous, phasic, competent and demonstrates normal augmentation. POP V is compressible, spontaneous, phasic, competent and demonstrates normal augmentation. T/P Trunk is compressible. PTV is compressible. RT PerV is compressible. Procedure This is a venous duplex using B-mode, color flow and spectral Doppler. Exam performed in department. A preliminary report was called and/or faxed to [facility]. VL/Venous Duplex US, Unilateral Interpretation Summary There is no evidence of right lower extremity deep vein thrombosis. Right great saphenous vein appears patent and compressible segmentally. Normal flow patterns left common f emoral vein Ordering Physician: LOPEZ CHRISTIAN Referring Physician: Jose Cruz Performed By: Maryann Daley RDCS, RVT
== END | disposition home or self-care (01) ==
LOC: CVS 07:35
PROVIDERS: PCP Family Medicine
DX: I83.891 Varicose veins of right lower extremity with other complications (principal)
CPT/HCPCS: 93971

== ENCOUNTER 2023-11-20 08:30 | Outpatient (RCR) | payer MEDICARE, SELFPAY ==
--- NOTE | 2023-11-11 09:43 | HP.PTEVAL_ITS ---
Patient's Visit Information Visit Information Visit Information: MERLENE SOW is a 67 year old F referred to Physical Therapy by LOPEZ CHRISTIAN with a diagnosis of R calf pain. Date of Evaluation: 11/11/23 Physical Therapist: Germán Peralta, [employer], OCS, CSCS Visit Plan Frequency: 1-2x /Week Duration: 2-4 Weeks Plan: weekly x 3-4 weeks for 1. progression of stretch and strength via HEP 2. Consider manual therapy to R medial calf if digresses. Today gastroc and soleus stretch 30: 5x 2x/day and B hell raises 3x10 daily with pics Next ecc heel lowering and SLS Subjective Subjective: Was having pain in R calf and into heel off and on since July. Had US which was negative. Not sure why it started but was walking up hill in July and felt stab pain. Happened again walking in [employer] parking lot 3 weeks ago sometimes with stepping down. Takes care of it with ice and ibuprofen and it gets better. Last time took 24 hrs before could walk on it. Has gotten some heel lifts and orthotics and that has helped. Feels tight in calf now but no more pain. Has not hurt in a weeka nd a half. Activities are normal, retired. No regular exercises , but avoids walking for fitness due to back. Wants to do daily walking without thinking it may happen again. Basic ADLs, all I and without pain. Sleep is OK. Objective Objective: Pain tightness/ tenderness is R calf medial. this is mild but noticeable compared to L side. Walking and steps without antalgia today reciprocally. trasnfers I chair and bed. AROM B ankles DF 5 degrees, PF 50 and symmetrical. Strength ankles 4/5 all directions without pain, able to heel raise with just slight uncomfortable transient feeling R medial. reflexes 2/3 patell and achilles B Sensation EL WNL to gross lgiht touch. Balance/Special Test Scores Lower Extremity Functional Score: 48 Goals Goal 1:: I appropriate strength adn stretch calves to avoid future pain Goal Time Frame: 2-4 Weeks Goal 2:: Pt feel 100% back to normal walking Goal Time Frame: 4-6 Weeks Rehabilitation Potential Physical Therapy Diagnosis: recurrent calf strain symptoms Rehabilitation Potential: Good Anticipated Interventions Patient/Client Instruction: Educate patient on: Condition and Plan of Care For the Purpose of:: To decrease pain, To increase ROM, To improve muscle performance and motor function and To increase tolerance to activity/condition/position Therapeutic Exercise to Include: Strength training, Flexibilty training, Passive ROM and Active ROM For the Purpose of:: To decrease pain, To increase ROM, To improve nutrient delivery to tissue and To increase tolerance to activity/condition/position Manual Therapy Techniques to Include: Passive ROM and Soft tissue mobilization For the Purpose of:: To improve nutrient delivery to tissue Text: Thank you for the opportunity to evaluate your patient. For Medicare and Medicare HMO plans, please review the plan of care and approve it. It will need to be FAXED BACK to us at [phone] for Medicare purposes. For Medicare only, by signing this I certify the plan of care. Please let me know if there are questions or concerns regarding this plan of care. Physician Signature: D ate:
--- NOTE | 2024-02-04 13:24 | HP.PT.NRP ---
Patient Information Patient Information: MERLENE SOW was seen in my office for initial evaluation on 11/11/23. The following Plan of Care was established for this patient: POC Established Initial Frequency: 1-2x /Week Initial Duration: 2-4 Weeks Anticipated Interventions Patient/Client Instruction: Educate patient on: Condition and Plan of Care For the Purpose of:: To decrease pain, To increase ROM, To improve muscle performance and motor function and To increase tolerance to activity/condition/position Therapeutic Exercise to Include: Strength training, Flexibilty training, Passive ROM and Active ROM For the Purpose of:: To decrease pain, To increase ROM, To improve nutrient delivery to tissue and To increase tolerance to activity/condition/position Manual Therapy Techniques to Include: Passive ROM and Soft tissue mobilization For the Purpose of:: To improve nutrient delivery to tissue Last Seen Last Seen: This patient was last seen in our office 11/20/23. Pertinent comments regarding their Physical therapy will appear below: Pt seen 2 visits of POC and was 100% better. she was to f/u as needed two weeks later to ensure improvements but did not schedule. I will discontinue from my care at this time. At this point I will be discontinuing this patient from physical therapy. I would be happy to see this patient again in the future if found appropriate by the physician. Thank you! Germán Peralta, DPT, OCS, CSCS Balance/Gait/Functional tests Balance/Special Test Scores Lower Extremity Functional Score: 48
== END 2023-11-20 19:00 | disposition home or self-care (01) ==
LOC: PT 08:30
PROVIDERS: PCP Family Medicine
DX: M79.661 Pain in right lower leg (principal)
CPT/HCPCS: 97110; 97161

== ENCOUNTER → 2024-01-17 | Outpatient (CLI) | payer MEDICARE, SELFPAY ==
[2024-01-17 12:17] LABS: Hemoglobin A1c 6.5 % (3.8-5.6)
[2024-01-20 16:09] LABS: PROEL- A/G Ratio 0.8 (0.7-1.7); PROEL- Albumin 3.3 g/dL (2.9-4.4); PROEL- Alpha-1 Globulin 0.3 g/dL (0.0-0.4); PROEL- Alpha-2 Globulin 0.8 g/dL (0.4-1.0); PROEL- Beta Globulin 1.5 g/dL (0.7-1.3); PROEL- Gamma Globulin 1.3 g/dL (0.4-1.8); PROEL- Globulin, Total 3.9 g/dL (2.2-3.9); PROEL- TOTAL PROTEIN 7.2 g/dL (6.0-8.5); PROEL-M-Spike Not Observed g/dL (Not Observed)
== END | disposition home or self-care (01) ==
PROVIDERS: PCP Family Medicine; Referring Provider Family Medicine; Visit Provider Family Medicine
DX: R77.1 Abnormality of globulin (principal); R73.02 Impaired glucose tolerance (oral)
CPT/HCPCS: 36415; 83036; 84165

== ENCOUNTER → 2024-04-27 | Outpatient (CLI) | payer MEDICARE, SELFPAY ==
--- NOTE | 2024-04-27 12:13 | BI_ITS ---
MAMMOGRAPHY - BILATERAL SCREENING REASON FOR EXAM: Female, 68 years old. Routine annual screening examination. PERTINENT HISTORY: Non-contributory. History of removal of a right sebaceous cyst. TECHNIQUE: Digital bilateral breast anne (3D mammographic acquisition) in the CC and MLO projections. 2-D mediolateral oblique (MLO) and craniocaudad (CC) views of both breasts were obtained. CAD: Full Field Digital Mammography with Computer Added Detection was performed. COMPARISON: Comparison is made with prior study dated April 24, 2023 and April 11, 2022. FINDINGS: Breast Composition: The breasts are heterogeneously dense, which may obscure small masses. There are no dominant masses or suspicious calcifications. Stable 7.7 mm and 9 mm well-defined adjacent nodules in the central deep medial aspect of the left breast. Correlation with ultrasound recommended. No other significant abnormalities are identified. BI/SCRN MAMM (CAD)W/ANNE BILAT IMPRESSION: There are 2 adjacent well-defined nodules in the central deep medial aspect of the left breast as described. Prior sonogram demonstrated one nodule to be a lymph node. Further correlation with ultrasound recommended. ASSESSMENT CATEGORY: BIRADS Category 0: Incomplete. Need additional imaging evaluation. A letter regarding these results will be sent to the patient by the facility within 30 days. Approximately 10% of breast cancers are not detected by mammography. A normal mammogram should not delay biopsy of a clinically suspicious abnormality. [id number] Electronically Signed: Andrey Rios MD at 13:04 EST ,
== END | disposition home or self-care (01) ==
LOC: OPBI 12:12
PROVIDERS: PCP Family Medicine; Referring Provider Family Medicine; Visit Provider Family Medicine
DX: Z12.31 Encounter for screening mammogram for malignant neoplasm of breast (principal)
CPT/HCPCS: 77063; 77067

== ENCOUNTER → 2024-04-29 | Outpatient (CLI) | payer MEDICARE, SELFPAY ==
--- NOTE | 2024-04-29 13:03 | US_ITS ---
STUDY: ULTRASOUND BREAST - LEFT REASON FOR EXAM: Female, 68 years old. Abnormal screening mammogram. TECHNIQUE: Axial and longitudinal images of the LEFT breast were performed with a high resolution ultrasound transducer. # OF IMAGES: 62 COMPARISON: Comparison is made with prior mammogram dated April 27, 2024. Comparison is also made with prior sonogram of the left breast dated March 15, 2020. FINDINGS: LEFT Breast: The upper central portion of the left breast was examined with ultrasound there is a 4 mm x 4 mm x 4 mm hypoechoic nodule with a fatty hilum at the 12:00 position of the breast and 5 cm from the nipple. This is suggestive of a small lymph node. A similar appearing hypoechoic nodule with increased central fatty hilum at the 11:00 position of the breast at 2 cm from the nipple measuring 6 mm x 4 mm x 3 mm. This is suggestive of benign lymph node as well. US/Breast Limited Unilateral IMPRESSION: The mammographic findings suggest stable small benign-appearing lymph nodes. Routine mammographic follow-up recommended. ASSESSMENT CATEGORY: BIRADS Category 2: Benign. A letter regarding these results will be sent to the patient by the facility within 30 days. Electronically Signed: Andrey Rios MD at 11:02 EST ,
== END | disposition home or self-care (01) ==
LOC: OPUS 12:59
PROVIDERS: PCP Family Medicine; Referring Provider Family Medicine; Visit Provider Family Medicine
DX: R92.8 Other abnormal and inconclusive findings on diagnostic imaging of breast (principal)
CPT/HCPCS: 76642

== ENCOUNTER 2024-07-08 10:33 | Emergency (ER) | payer MEDICARE, SELFPAY ==
[2024-07-08 10:33] VITALS: BP 153/80; PULSE 97; RESP 16; TEMP 36.4; O2SAT 98; BMI 45.5
[2024-07-08] MEDS: Ketorolac 30 MG/ML Syringe IM (12:00)
--- NOTE | 2024-07-08 12:00 | EDS_ITS ---
HPI History of Present Illness Chief Complaint: Other, Pain/Inj Narrative Narrative: Patient is a 68-year-old female past medical history hypertension who presents to the emergency department chief complaint of sore throat as well as right ear fullness and right-sided neck discomfort. Patient states that her symptoms have been going on for approximately 3 days now. She states that if she tries to swallow it is painful but notes that she still can eat and drink without any difficulty. Patient denies any recent contacts. Denies any trauma or injury PFSH PFSH Allergy/AdvReac Type Severity Reaction Status Date / Time amoxicillin (From Augmentin) Allergy Severe Other Verified 07/08/24 10:38 cefaclor (From Ceclor) Allergy Severe Swelling Verified 07/08/24 10:38 clavulanic acid (From Allergy Severe Other Verified 07/08/24 10:38 Augmentin) acetaminophen (From [place]) AdvReac Severe Vomiting Verified 07/08/24 10:38 hydrocodone (From [place]) AdvReac Severe Vomiting Verified 07/08/24 10:38 ROS ROS ED ROS Narrative Constitutional: Denies any fevers, chills, headaches, lightness, dizziness Eyes, ears, nose, throat: Complains of sore throat as noted above as well as right ear fullness as noted above denies any difficulty swallowing Cardiovascular: Denies chest pain or palpitations Respiratory: Denies coughing wheezing shortness of breath Abdomen: Denies abdominal pain nausea vomit diarrhea : Denies any urinary symptoms Neurological: Denies numbness, weakness, tingling Musculoskeletal: Denies back pain complains of right sided neck discomfort as noted above Skin: Denies rashes or lesions EXAM Physical Exam Narrative Exam Narrative: General: Patient was lying in bed rest comfortably did not appear to be in acute distress Head: Atraumatic, normocephalic Eyes, ears, nose, throat: Patient has posterior pharynx erythema noted, no concern for peritonsillar abscess, uvula midline, no sublingual swelling Neck: Soft, supple, trachea midline, patient has mild tenderness palpation over the right cervical spinal muscles no midline tenderness palpation, no concern for meningitis Cardiovascular: Regular rate and rhythm no murmurs gallops rubs are noted Respiratory: Clear to auscultation bilaterally Abdomen: No tenderness palpation Extremities: +5/5 strength noted in the bilateral upper and lower extremities, radial pulses +2/4 in the bilateral extremities, no pedal edema on exam Neurological: Patient following commands knew that she was at [facility] years 2024 Skin: Warm, dry, intact no rashes or lesions noted Const Vital Signs: 07/08/24 10:33 Temperature 97.6 F L Temperature Source Temporal Pulse Rate 97 Respiratory Rate 16 Blood Pressure 153/80 H Blood Pressure Mean 104 Pulse Ox 98 Oxygen Delivery Method Room Air MDM MDM MDM Narrative Medical decision making narrative: Patient is a 68-year-old female who presents to the emerged part with a chief complaint of sore throat and right-sided neck discomfort. On the differential diagnose includes but not limited to viral pharyngitis, strep throat, musculoskeletal strain. Once workup is obtained reviewed she will be reevaluated. Patient tested negative for strep here in the emergency department. On reevaluation the patient and she is feeling better to let go home at this point time. Patient will be given a dose of Decadron here in the emergency department for her likely viral pharyngitis. She is advised to rotate Tylenol and appropriate the clock. She is encouraged to follow-up with primary care physician outpatient and return for worsening symptoms and concerns. She is agreeable this plan all question concerns answered she was discharged home in stable condition. Discharge Plan Triage Chief Complaint: Other, Pain/Inj ED Provider: Otto Funk Dx/Rx/DC Orders Clinical Impression: Sore throat Primary Care Provider: Jose Cruz Referrals: Jose Cruz MD [Primary Care Provider] - Activity Restrictions/Additional Instructions: Continue supportive care rotate Tylenol and ibuprofen [id number] when you do this you can take something every 3 hours. Max dose Tylenol 4000 mg max dose of ibuprofen 3200 mg. Return with worsening symptoms or other concerns otherwise follow-up your primary care physician outpatient setting. Follow-up on strep culture result with your primary care physician. Strep test was negative here. Print Language: Indonesian Disposition Disposition: Home, Self Care
[2024-07-08] MEDS: dexAMETHasone 4 MG Tablet 6 MG PO (12:01)
== END 2024-07-08 14:17 | disposition home or self-care (01) ==
PROVIDERS: Emergency Provider Emergency Medicine; PCP Family Medicine; Visit Provider Emergency Medicine
DX: J02.9 Acute pharyngitis, unspecified (principal); I10 Essential (primary) hypertension
CPT/HCPCS: 87081; 87651; 96372; 99282

== ENCOUNTER → 2024-07-16 | Outpatient (CLI) | payer MEDICARE, SELFPAY ==
[2024-07-16 09:39] LABS: Hematocrit 40.1 % (37-47); Hemoglobin 12.8 g/dL (12.0-15.0); Mean Corp Hgb Conc 31.9 g/dL (32-36); Mean Corpuscular Hgb 26.7 pg (27.0-32.0); Mean Corpuscular Volume 83.7 fL (81-99); Mean Platelet Vol. 11.1 fl (6.2-12.0); Platelet Count 330 K/mm3 (150-450); RBC Distribution Width CV 15.4 % (11.6-14.6); Red Blood Count 4.79 M/mm3 (4.2-5.4); White Blood Count 9.9 K/mm3 (4.4-11.0)
[2024-07-16 10:13] LABS: AST(SGOT) 20 U/L (<=31); Alanine Aminotransfer ALT/SGPT 21 U/L (<=34); Albumin, Serum 3.9 g/dL (3.4-4.8); Alkaline Phosphatase 112 U/L (35-104); Anion Gap 13 (5-15); BUN 17 mg/dL (4-19); BUN/Creat Ratio 21.6 RATIO (10-20); Calcium,Total 10.2 mg/dL (7.6-11.0); Carbon Dioxide 25.3 mmol/L (21.0-32.0); Chloride 100 mmol/L (98-108); Cholesterol 208 mg/dL (<=200); EST Glomerular Filtration Rate 80 (>60); Globulin 3.8 g/dL (2.2-4.2); Glucose 150 mg/dL (70-99); High Density Lipoprotein 52 mg/dL; Low Density Lipoprotein Calc. 122 mg/dL; Potassium 4.1 mmol/L (3.3-5.1); Protein, Total 7.7 g/dL (5.9-8.4); Sodium Level 139 mmol/L (133-145); Total Bilirubin 0.29 mg/dL (0.00-1.30); Triglycerides 168 mg/dL; Very Low Density Lipoprotein 34 mg/dL (5-40); cholesterol:hdl ratio screen 3.98
[2024-07-16 10:38] LABS: Hemoglobin A1c 6.8 % (<=5.6)
== END | disposition home or self-care (01) ==
LOC: LAB 09:11
PROVIDERS: PCP Family Medicine; Referring Provider Family Medicine; Visit Provider Family Medicine
DX: I10 Essential (primary) hypertension (principal); E78.2 Mixed hyperlipidemia; R73.02 Impaired glucose tolerance (oral)
CPT/HCPCS: 36415; 80053; 80061; 83036; 85027

== ENCOUNTER → 2024-10-14 | Outpatient (CLI) | payer MEDICARE, SELFPAY ==
[2024-10-14 10:31] LABS: Hemoglobin A1c 6.5 % (<=5.6)
--- OUTSIDE RECORDS SUMMARY | 2024-10-14 10:52 | XMS RPT_ITS | CCD ---
Author Organization [facility] Care Team Providers [place] Tax Auditor Name Role Phone LINDA MOY DB Unavailable Unavailable STENCEL, CHRISTA SAMSON Unavailable Unavailab le Stencel, Christa Marie Unavailable Stencel, Christa Hyde Unavailable Unavailable Stencel, Christa Unavailable Unavailable Stenflorencia, Christa Hyde Unavailable [phone] Unavailable Unavailable Rehan, Dr. Mukesh Josue Attending Un available Furness, Dr. Mukesh Josue Referring Un available Stencel, Dr. Christa Samson Primary Care Unava ilable Stencel, Dr. Christa Samson Attending Unava ilable Stencel, Dr. Christa Samson Referring Unava ilable Stencel, Dr. Christa Samson Primary Care Unava ilable Stencel, Dr. Christa Samson Primary Care Unava ilable Elbert Rosario Referring Unavailable AbrahamElbert rosado Attending Unavailable AbrahamElbert Referring Unavailable Yenni Israel Attending Unavailable Stencel, Dr. Christa Samson Primary Care Unava ilable Yenni Israel Attending Unavailable Stencel, Dr. Christa Samson Primary Care Kavithava iladitya UNKNOWN, Dr. RUBA Pena Referring Unav ailable Stencel, Dr. Christa Samson Primary Care Unava ilable Elbert Rosario Attending Unavailable Stencel, Dr. Christa Samson Primary Care Unava ilable Stencel, Dr. Christa Samson Attending Unava ilable Stencel, Dr. Christa Samson Referring Unava ilable Stencel Christa LIND Primary Care Provider Christa Cruz MD Unavailable CHRISTA CRUZ Primary Care Unavailable TING BARNES Attending Unavailable Stencel Christa LIND Unavailable [phone] Christa Cruz MD Primary Care Provider Christa Cruz MD Unavailable Christa Cruz MD Primary Care Provider LOPEZ CHRISTIAN Attending Unavailable STENCEL, CHRISTA D Primary Care Unavailable STENCEL, CHRISTA Hyde Attending Unavailable STENCEL, CHRISTA D Referring Unavailable STENCEL, CHRISTA D Primary Care Unavailable ELBERT ROSARIO Attending Unavailable STENCEL, CHRISTA D Primary Care Unavailable STENCEL, CHRISTA D Attending Unavailable STENCEL, CHRISTA D Referring Unavailable STENCEL, CHRISTA D Primary Care Unavailable Stencel, Christa Primary Care Unavailable Stencel, Christa Attending Unavailable Stencel, Christa Referring Unavailable Stencel, Christa Attending Unavailable Stencel, Christa Referring Unavailable Stencel, Christa Primary Care Unavailable Cebul, Gustavo D Attending Unavailable Cebul, Gustavo D Referring Unavailable Stencel, Christa Primary Care Unavailable Stencel, Christa Attending Unavailable Stencel, Christa Referring Unavailable Stencel, Christa Primary Care Unavailable Stencel, Christa Primary Care Unavailable Otto Funk Attending Unavailable Stencel, Christa Attending Unavailable Stencel, Christa Referring Unavailable Stencel, Christa Primary Care Unavailable Stencel, Christa Primary Care Unavailable DEVAKIS, S Attending Unavailable DEVAKIS, S Referring Unavailable DEVAKIS, S Attending Unavailable Stencel, Christa Primary Care Unavailable DEVAKIS, S Referring Unavailable Stencel Dr. Christa LIND Primary Care Provider Dr. Christa Cruz MD Attending Provider Dr. Christa Cruz MD Referring Provider [phone] Dr. Otto Funk DO Attending Provider Dr. Otto Funk DO Emergency Provider [phone] Allergies Allergy Classification Reported Allergen(s) Allergy Type Date of Onset Reaction(s) Facility Acetaminophen / HYDROcodone (3 sources) Acetaminophen / HYDROcodone; Translations: [[place] TABS] Drug Allergy 3 Other, Nausea/vomitin g [facility] Work Phone: Amoxicillin / Clavulanate (3 sources) Amoxicillin / Clavulanate; Translations: [Augmentin] Drug Allergy 3 Unknown [facility] Cephalosporins (antibiotic) (3 sources) Cefaclor; Translations: [Ceclor] Drug Allergy 3 [place] [facility]: (8 sources) acetaminophen / HYDROcodone; Translations: [HYDROCODONE-ACET AMINOPHEN] Drug Allergy 6 Other, Nausea/vomitin g [facility] Repository (10 sources) cefaclor; Translations: [CEFACLOR] Drug Allergy 6 Swelling [facility] Repository (8 sources) AMOXICILLIN-POT CLAVULANATE; Translations: [AMOXICILLIN-POT CLAVULANATE] Propensity to adverse reactions to drug (disorder) 6 Unknown [facility] Repository (15 sources) Acetaminophen / HYDROcodone; Translations: [[place] TABS] Drug Allergy [place]omiting [facility] [place]: (15 sources) Amoxicillin / Clavulanate; Translations: [Augmentin] Drug Allergy [facility] [place]: (15 sources) Cefaclor; Translations: [Ceclor] Drug Allergy [place]elling [facility] [place]: (1 source) Acetaminophen Drug Allergy 5 [facility] Repository (1 source) Amoxicillin Drug Allergy 5 [facility] Repository (1 source) Clavulanate Drug Allergy 5 [facility] Repository (1 source) HYDROcodone Drug Allergy 5 [facility] Repository (1 source) Acetaminophen Drug Allergy 5 Vomiting [facility] (1 source) Amoxicillin Drug Allergy 5 Other [facility] Comment on above: MIGRAINES (1 source) Clavulanate Drug Allergy 5 Other [facility] Comment on above: MIGRAINES (1 source) HYDROcodone Drug Allergy 5 Vomiting [facility] Medications Current Medications Medication Drug Class(es) Dates Sig (Normalized) Sig (Original) amLODIPine 10 mg oral tablet (20 sources) Dihydropyridine Calcium Channel Corey Start: 01-21-2024 End: 01-20-2025 take 1 tablet by mouth once daily amLODIPine (Norvasc) 10 mg tablet Indications: Mixed hyperlipidemia Take 1 tablet (10 mg) by mouth once daily. 90 tablet 3 01/21/2024 01/20/2025 Active Start: 07-21-2019 End: 07-07-2024 take 1 tablet by mouth once daily amLODIPine (Norvasc) 5 mg tablet Indications: Mixed hyperlipidemia Take 1 tablet (5 mg) by mouth once daily. 90 tablet 3 07/08/2023 01/21/2024 Discontinued (Reorder) aspirin 81 mg delayed release oral tablet (20 sources) Platelet Aggregation Inhibitor, Nonsteroidal Anti-inflammatory Drug Start: 07-21-2019 take 1 tablet by mouth once daily aspirin 81 mg EC tablet Take 1 tablet (81 mg) by mouth once daily. 07/21/2019 Active fluticasone propionate 0.05 mg/actuat metered dose nasal spray (20 sources) Corticosteroid Start: 07-21-2019 take 2 spray(s) nasal route twice daily fluticasone (Flonase) 50 mcg/actuation nasal spray Administer 2 sprays into affected nostril(s) twice a day. 07/21/2019 Active Start: 07-21-2019 take 2 spray(s) nasa l route twice daily Fluticasone Propionate 50 MCG/ACT Nasal Suspension USE 2 SPRAYS IN EACH NOSTRIL TWICE DAILY. Quantity: 0 Refills: 0 Ordered: 21-Jul-2019 DO Start : 21-Jul-2019 Active hydroCHLOROthiazide 25 mg oral tablet (20 sources) Thiazide Diuretic Start: 07-21-2019 End: 05-22-2025 take 1 tablet by mouth once daily hydroCHLOROthiazide (HYDRODiuril) 25 mg tablet Indications: Mixed hyperlipidemia Take 1 tablet (25 mg) by mouth once daily. 90 tablet 3 05/22/2024 05/22/2025 Active ibuprofen 200 mg oral tablet (14 sources) Nonsteroidal Anti-inflammato ry Drug Start: 01-02-2022 take 1 tablet by mouth twice daily ibuprofen 200 mg tablet Take 1 tablet (200 mg) by mouth 2 times a day. 01/02/2022 Active metFORMIN hydrochloride 500 mg oral tablet (1 source) Biguanide Start: 07-20-2024 End: 10-13-2025 take 1 tablet by mouth once daily at breakfast metFORMIN (Glucophage) 500 mg tablet Indications: Type 2 diabetes mellitus without complication, without long-term current use of insulin (Multi) Take 1 tablet (500 mg) by mouth once daily with breakfast. 90 tablet 4 07/20/2024 10/13/2025 Active multivitamin tablet (6 sources) Start: 07-21-2019 take 1 tablet by mouth once daily multivitamin tablet Take 1 tablet by mouth once daily. 07/21/2019 Active Start: 07-21-2019 take 1 tablet by silvia th once daily multivitamin tablet Take 1 tablet by mouth once daily. 0 07/21/2019 Active naproxen sodium 220 mg oral tablet (20 sources) Nonsteroidal Anti-inflammatory Drug Start: 07-21-2019 naproxen sodium (Aleve) 220 mg tablet Take by mouth. 07/21/2019 Active Start: 07-21-2019 Naproxen Sodiu m 220 MG Oral Tablet Quantity: 0 Refills: 0 Ordered: 21-Jul-2019 DO Start : 21-Jul-2019 Active simvastatin 20 mg oral tablet (18 sources) HMG-CoA Reductase Inhibitor Start: 07-21-2019 End: 01-02-2023 take 1 tablet by mouth once daily at bedtime simvastatin (Zocor) 20 mg tablet Take 1 tablet (20 mg) by mouth once daily at bedtime. 0 07/21/2019 01/02/2023 Discontinued (Therapy completed) valsartan 320 mg oral tablet (20 sources) Angiotensin 2 Receptor Corey Start: 07-21-2019 End: 07-07-2024 take 1 tablet by mouth once daily valsartan (Diovan) 320 mg tablet Indications: Mixed hyperlipidemia Take 1 tablet (320 mg) by mouth once daily. 90 tablet 3 07/08/2023 Active Completed/Discontinued Medications Medication Drug Class(es) Dates [...] Refills: 0 DO Start : 21-Jul-2019 Active Start: 07-21-2019 take 1 tablet by silvia th once daily Multi-Vitamin Oral Tablet TAKE 1 TABLET DAILY. Quantity: 30 Refills: 0 Start : 21-Jul-2019 Active Multi-Vitamin Oral Tablet (15 sources) Start: 07-21-2019 take 1 tablet by mouth once daily Multi-Vitamin Oral Tablet TAKE 1 TABLET DAILY. Quantity: 30 Refills: 0 Ordered: 21-Jul-2019 DO Start : 21-Jul-2019 Active predniSONE 20 mg oral tablet (2 sources) Start: 05-25-2022 take 2 tablets by mouth once daily predniSONE 20 MG Oral Tablet TAKE 2 TABLETS DAILY. Quantity: 10 Refills: 0 Ordered: 25-May-2022 Mukesh Van MD Start : 25-May-2022 Active sodium chloride 0.111 meq/ml nasal solution (17 sources) Start: 07-21-2019 Saline Nasal S pray 0.65 % Nasal Solution USE DIRECTED. Quantity: 0 Refills: 0 Ordered: 21-Jul-2019 DO Start : 21-Jul-2019 Active traMADol hydrochloride 50 mg oral tablet (4 sources) Opioid Agonist Start: 06-20-2021 End: 01-02-2022 take 1 tablet by mouth every eight hours as needed traMADol HCl - 50 MG Oral Tablet TAKE 1 TABLET EVERY 8 HOURS NEEDED. Quantity: 20 Refills: 0 Ordered: 20-Jun-2021 Christa Cruz MD Start : 20-Jun-2021 End : 02-Jan-2022 Complete Problems Active Problems Problem Classification Problem Date Documented Date Episodic/Chronic Abdominal hernia (17 sources) Unspecified abdominal hernia without obstruction or gangrene; Translations: [Hernia] Episodic Acquired foot deformities (20 sources) Hammer toe; Translations: [Other hammer toe (acquired)] Onset: 01-02-2023 01-02-2023 Chronic Diabetes mellitus without complication (4 sources) Type 2 diabetes mellitus without complication; Translations: [Type 2 diabetes mellitus without complications] Onset: 07-20-2024 07-20-2024 Chronic Disorders of lipid metabolism (20 sources) Hyperlipidemia; Translations: [Other and unspecified hyperlipidemia] Onset: 01-02-2023 01-02-2023 Chronic Ectopic (16 sources) Tubal ; Translations: [Tubal without intrauterine ] Episodic Comment on above: 1984; Essential hypertension (20 sources) Hypertensive disorder; Translations: [Unspecified essential hypertension] Onset: 01-02-2023 01-02-2023 Chronic Genitourinary symptoms and ill-defined conditions (1 source) Endometrium thickened; Translations: [Thickened endometrium] Episodic Immunizations and screening for infectious disease (15 sources) Patient encounter status; Translations: [Other specified vaccination] Episodic Osteoarthritis (20 sources) Primary arthrosis of first carpometacarpal joints, bilateral; Translations: [Osteoarthrosis, localized, primary, hand] Onset: 01-02-2023 01-02-2023 Chronic Other complications of ; puerperium affecting management of mother (16 sources) Deliveries by ; Translations: [ delivery, without mention of indication, unspecified as to episode of care or not applicable] Episodic Comment on above: [id number] eeks; Other connective tissue disease (1 source) Pain in right lower limb; Translations: [Pain in right leg] 10-18-2023 Episodic Other connective tissue disease (1 source) Pain of right calf; Translations: [Pain in right lower leg] 10-21-2023 Episodic Other connective tissue disease (2 sources) Pain in right leg; Translations: [Pain in right leg] Onset: 10-18-2023 Episodic Other hematologic conditions (2 sources) Increased globulin; Translations: [Abnormality of globulin] 01-21-2024 Episodic Other lower respiratory disease (3 sources) Cough; Translations: [Cough] Episodic Other nutritional; endocrine; and metabolic disorders (20 sources) Obesity; Translations: [Obesity, unspecified] Onset: 01-02-2023 01-02-2023 Chronic Other nutritional; endocrine; and metabolic disorders (13 sources) Body mass index 40+ - severely obese; Translations: [Morbid obesity] Onset: 01-02-2023 01-02-2023 Chronic Other screening for suspected conditions (not mental disorders or infectious disease) (20 sources) Endometrium thickened; Translations: [Nonspecific (abnormal) findings on radiological and other examination of genitourinary organs] Onset: 01-02-2023 01-02-2023 Chronic Other screening for suspected conditions (not mental disorders or infectious disease) (20 sources) Cancer cervix - screening done; Translations: [Patient encounter status] Onset: 03-12-2022 Episodic Other upper respiratory disease (20 sources) Allergic rhinitis due to pollen; Translations: [Allergic rhinitis due to pollen] Onset: 01-02-2023 01-02-2023 Chronic Other upper respiratory disease (2 sources) Allergic rhinitis due to pollen; Translations: [Allergic rhinitis due to pollen] Onset: 01-02-2023 Chronic Other upper respiratory infections (2 sources) Acute pharyngitis, unspecified; Translations: [Sore throat symptom] Onset: 07-21-2024 07-16-2024 Episodic Residual codes; unclassified (1 source) Menopause present; Translations: [Menopause] Chronic Residual codes; unclassified (16 sources) Past history of procedure; Translations: [Other specified personal history presenting hazards to health] Episodic Comment on above: 02/12/2019; Residual codes; unclassified (15 sources) Menopause present; Translations: [Symptomatic menopausal or female climacteric states] Episodic Residual codes; unclassified (15 sources) History of clinical finding in subject; Translations: [Asymptomatic postmenopausal status (age-related) (natural)] Episodic Comment on above: 2004; Unclassified (6 sources) Patient encounter status; Translations: [Screening for breast cancer] 07-20-2024 Unclassified (2 sources) Gynecologic Exam; Translations: [Gynecologic Exam] Onset: 03-13-2024 Past or Other Problems Problem Classification Problem Date Documented Da te Episodic/Chronic Crushing injury or internal injury (3 sources) Injury to blood vessels of lower limb; Translations: [Other specified injury of unspecified blood vessel at lower leg level, right leg, initial encounter] Onset: 10-21-2023 10-21-2023 Episodic Diabetes mellitus without complication (6 sources) Impaired glucose tolerance; Translations: [Impaired glucose tolerance test (oral)] Onset: 01-21-2024 01-02-2023 Episodic Nonmalignant breast conditions (20 sources) Breast lump; Translations: [Lump or mass in breast] Onset: 01-02-2023 01-02-2023 Episodic Other and unspecified benign neoplasm (20 sources) History of polyp of colon; Translations: [Personal history of colonic polyps] Onset: 01-02-2023 01-02-2023 Episodic Other connective tissue disease (3 sources) Pain in right lower leg; Translations: [Pain in right lower leg] Onset: 10-21-2023 Episodic Other hematologic conditions (3 sources) Abnormality of globulin; Translations: [Abnormality of globulin] Onset: 01-21-2024 Episodic Spondylosis; intervertebral disc disorders; other back problems (20 sources) Backache; Translations: [Backache, unspecified] Onset: 01-02-2023 01-02-2023 Episodic Unclassified (16 sources) Finding of menstrual bleeding; Translations: [Menstruation] Comment on above: Onset age 12 years; Unclassified (1 source) History of clinical finding in subject; Translations: [History of menopause] Unclassified (5 sources) Onset: 07-08-2023 Resolved: 07-20-2024 07-08-2023 Varicose veins of lower extremity (1 source) Varicose veins of right lower extremity with other complications; Translations: [Varicose veins of right lower extremity with other complications] Onset: 11-12-2023 Episodic NEGATED: Highlighted row has not occurred!Residual codes; unclassified (5 sources) Disease Episodic Results Test Name Value Interpretation Reference Range Facility Anion gap in Serum or Plasma Ordered By: Christa Cruz on 07-16-2024 Anion gap [Moles/Vol] 13 mmol/L 5-15 [facility] BUN/creatinine ratioOrdered By: Christa Cruz on 07-16-2024 Urea nitrogen/Creatinine [Mass ratio] 21.6 mg/mg High 10-20 [facility] Bilirubin, totalOrdered By: Christa Cruz on 07-16-2024 Bilirubin [Mass/Vol] 0.29 mg/dL 0.00-1.30 [facility] CBC-Complete Blood Cnt No Di ffon 07-16-2024 Erythrocyte distribution width (RBC) [Ratio] 15.4 % High 11.6-14.6 [facility] Comment on above: Performed By: #### L 500.4050, L501.9985, L100.0500, L500.4100 #### [facility] [address] [place], [address] Hematocrit (Bld) [Volume fraction] 40.1 % Normal 37-47 [facility] Comment on above: Performed By: #### L 500.4050, L501.9985, L100.0500, L500.4100 #### [facility] [address] [place], [address] Hemoglobin (Bld) [Mass/Vol] 12.8 g/dL Normal 12.0-15.0 [facility] Comment on above: Performed By: #### L 500.4050, L501.9985, L100.0500, L500.4100 #### [facility] [address] [place], [address] MCH (RBC) [Entitic mass] 26.7 pg Low 27.0-32.0 [facility] Comment on above: Performed By: #### L 500.4050, L501.9985, L100.0500, L500.4100 #### [facility] [address] [place], [address] MCHC (RBC) [Mass/Vol] 31.9 g/dL Low 32-36 [facility] Comment on above: Performed By: #### L 500.4050, L501.9985, L100.0500, L500.4100 #### [facility] [address] [place], [address] MCV (RBC) [Entitic vol] 83.7 fL Normal 81-99 [facility] Comment on above: Performed By: #### L 500.4050, L501.9985, L100.0500, L500.4100 #### [facility] [address] [place], [address] Platelet mean volume (Bld) [Entitic vol] 11.1 fL Normal 6.2-12.0 [facility] Comment on above: Performed By: #### L 500.4050, L501.9985, L100.0500, L500.4100 #### [facility] [address] [place], [address] Platelets (Bld) [#/Vol] 330 10*3/uL Normal 150-450 [facility] Comment on above: Performed By: #### L 500.4050, L501.9985, L100.0500, L500.4100 #### [facility] [address] [place], [address] RBC (Bld) [#/Vol] 4.79 10*6/uL Normal 4.2-5.4 [facility] Comment on above: Performed By: #### L 500.4050, [id number], L100.0500, L500.4100 #### [facility] [address] [place], [address] RDW SD 47.0 fl High 35.1-43.9 [facility] Comment on above: Performed By: #### L 500.4050, L501.9985, L100.0500, L500.4100 #### [facility] [address] [place], [address] WBC (Bld) [#/Vol] 9.9 10*3/uL Normal 4.4-11.0 [facility] Comment on above: Performed By: #### L 500.4050, [id number], L100.0500, L500.4100 #### [facility] [address] [place], [address] Calculated very low density lipoprotein (VLDL) cholesterol measurementOrdered By: Christa Cruz on 07-16-2024 VLDL Cholesterol 34 mg/dL 5-40 [facility] Carbon dioxide, total [Moles /volume] in Central venous bloodOrdered By: Chritsa Cruz on 07-16-2024 CO2 [Moles/Vol] 25.3 mmol/L 21.0-32.0 [facility] Chloride assayOrdered By: Yuliet Cruz on 07-16-2024 Chloride [Moles/Vol] 100 mmol/L 98-108 [facility] Comprehensive Metabolic Prof ilon 07-16-2024 Albumin [Mass/Vol] 3.9 g/dL Normal 3.4-4.8 [facility] Comment on above: Performed By: #### L 500.4050, L501.9985, L100.0500, L500.4100 #### [facility] [address] [place], [address] Albumin/Globulin [Mass ratio] 1.0 {ratio} Normal 0.9-2.4 [facility] Comment on above: Performed By: #### L 500.4050, [id number], L100.0500, L500.4100 #### [facility] [address] [place], [address] ALK PHOS 112 U/L High 35-104 [facility] Comment on above: Performed By: #### L 500.4050, L501.9985, L100.0500, L500.4100 #### [facility] [address] [place], [address] ALT [Catalytic activity/Vol] 21 U/L Normal <=34 [facility] Comment on above: Performed By: #### L 500.4050, L501.9985, L100.0500, L500.4100 #### [facility] [address] [place], [address] AST [Catalytic activity/Vol] 20 U/L Normal <=31 [facility] Comment on above: Performed By: #### L 500.4050, [id number], L100.0500, L500.4100 #### [facility] [address] [place], [address] Bilirubin [Mass/Vol] 0.29 mg/dL Normal 0.00-1.30 [facility] Comment on above: Performed By: #### L 500.4050, [id number], L100.0500, L500.4100 #### [facility] [address] [place], [address] BUN/CRE 21.6 RATIO High 10-20 [facility] Comment on above: Performed By: #### L 500.4050, [id number], L100.0500, L500.4100 #### [facility] [address] [place], [address] Calcium [Mass/Vol] 10.2 mg/dL Normal 7.6-11.0 [facility] Comment on above: Performed By: #### L 500.4050, [id number], L100.0500, L500.4100 #### [facility] [address] [place], [address] Chloride [Moles/Vol] 100 mmol/L Normal 98-108 [facility] Comment on above: Performed By: #### L 500.4050, [id number], L100.0500, L500.4100 #### [facility] [address] [place], [address] CO2 [Moles/Vol] 25.3 mmol/L Normal 21.0-32.0 [facility] Comment on above: Performed By: #### L 500.4050, [id number], L100.0500, L500.4100 #### [facility] [address] [place], [address] Creatinine [Mass/Vol] 0.80 mg/dL Normal 0.70-1.20 [facility] Comment on above: Performed By: #### L 500.4050, [id number], L100.0500, L500.4100 #### [facility] [address] [place], [address] GAP 13 Normal 5-15 [facility] Comment on above: Performed By: #### L 500.4050, [id number], L100.0500, L500.4100 #### [facility] [address] [place], [address] GFR/1.73 sq M.predicted among non-blacks MDRD (S/P/Bld) [Vol rate/Area] 80 mL/min/{1.73_m2} Normal >60 [facility] Comment on above: Result Comment: mL/m in/1.73m2 CKD-EPI Creatinine Equation (2020) Performed By: #### L 500.4050, L501.9985, L100.0500, L500.4100 #### [facility] [address] [place], [address] Globulin (S) [Mass/Vol] 3.8 g/dL Normal 2.2-4.2 [facility] Comment on above: Performed By: #### L 500.4050, [id number], L100.0500, L500.4100 #### [facility] [address] [place], [address] Glucose [Mass/Vol] 150 mg/dL High 70-99 [facility] Comment on above: Performed By: #### L 500.4050, [id number], L100.0500, L500.4100 #### [facility] [address] [place], [address] Potassium [Moles/Vol] 4.1 mmol/L Normal 3.3-5.1 [facility] Comment on above: Performed By: #### L 500.4050, L501.9985, L100.0500, L500.4100 #### [facility] [address] [place], [address] Sodium [Moles/Vol] 139 mmol/L Normal 133-145 [facility] Comment on above: Performed By: #### L 500.4050, L501.9985, L100.0500, L500.4100 #### [facility] [address] [place], [address] T PROT 7.7 g/dL Normal 5.9-8.4 [facility] Comment on above: Performed By: #### L 500.4050, L501.9985, L100.0500, L500.4100 #### [facility] [address] [place], [address] Urea nitrogen [Mass/Vol] 17 mg/dL Normal 4-19 [facility] Comment on above: Performed By: #### L 500.4050, L501.9985, L100.0500, L500.4100 #### [facility] [address] [place], [address] Erythrocyte distribution wid th ratioOrdered By: Christa Cruz on 07-16-2024 Erythrocyte distribution width (RBC) [Ratio] 15.4 % High 11.6-14.6 [facility] Erythrocyte distribution wid th standard deviationOrdered By: Christa Cruz on 07-16-2024 Erythrocyte distribution width (RBC) [Entitic vol] 47.0 fL High 35.1-43.9 [facility] GFR/1.73 sq M.predicted itz g non-blacks MDRD (S/P/Bld) [Vol rate/Area]Ordered By: Christa Cruz on 07-16-2024 Estimated GFR (MDRD) Non-Af Amer 80 >60 [facility] Comment on above: mL/min/1.73m2 CKD-EP I Creatinine Equation (2020) Hematocrit Auto (Bld) [Volum e fraction]Ordered By: Christa Cruz on 07-16-2024 Hematocrit (Bld) [Volume fraction] 40.1 % 37-47 [facility] Hemoglobin A1con 07-16-2024 HbA1c (Bld) [Mass fraction] 6.8 % Normal <=5.6 [facility] Comment on above: Performed By: #### L 500.4050, L501.9985, L100.0500, L500.4100 ####[facility] [address] [place], [place], [id number] Hemoglobin A1c percentageOrd ered By: Christa Cruz on 07-16-2024 HbA1c (Bld) [Mass fraction] 6.8 % >5.7 [facility] Hemoglobin measurementOrdere d By: Christa Cruz on 07-16-2024 Hemoglobin (Bld) [Mass/Vol] 12.8 g/dL 12.0-15.0 [facility] LDL calc ser/plasOrdered By: Christa Cruz on 07-16-2024 LDL Cholesterol, Calculated 122 mg/dL [facility] Comment on above: Owqtqsreit=311-259 m g/dL & Higher Spef=402 mg/dL or greater Laboratory - Chemistry and C hemistry - challengeOrdered By: Christa Cruz on 07-16-2024 AST [Catalytic activity/Vol] 20 U/L <32 [facility] Lipid Profileon 07-16-2024 CHOL:HDL 3.98 Normal [facility] Comment on above: Performed By: #### L 500.4050, L501.9985, L100.0500, L500.4100 #### [facility] [address] [place], [place], [id number] Cholesterol [Mass/Vol] 208 mg/dL High <=200 [facility] Comment on above: Result Comment: Chol esterol level, Desirable <200 mg/dL Borderline high cholesterol 200-239 mg/dL High cholesterol >=240 mg/dL Recommendations of the NCEP Adult Treatment Panel for the following risk-cutoff thresholds for the [place] Spanish population. Performed By: #### L 500.4050, L501.9985, L100.0500, L500.4100 #### [facility] [address] [place], [address] Cholesterol in HDL [Mass/Vol] 52 mg/dL Normal [facility] Comment on above: Result Comment: Sharon onal Cholesterol Education Program (NCEP) guidelines: <40 mg/dL: Low HDL-cholesterol (major risk factor for CHD) >= 60 mg/dL: High HDL-cholesterol (negative risk factor for CHD) HDL-cholesterol is affected by a number of factors, e.g. smoking, exercise, hormones, sex and age. Performed By: #### L 500.4050, L501.9985, L100.0500, L500.4100 #### [facility] [address] [place], [address] Cholesterol in LDL [Mass/Vol] 122 mg/dL Normal [facility] Comment on above: Result Comment: Bord acsozk=175-103 mg/dL Higher Dzsx=570 mg/dL or greater Performed By: #### L 500.4050, L501.9985, L100.0500, L500.4100 #### [facility] [address] [place], [address] Cholesterol in VLDL [Mass/Vol] 34 mg/dL Normal 5-40 [facility] Comment on above: Performed By: #### L 500.4050, L501.9985, L100.0500, L500.4100 #### [facility] [address] [place], [address] Triglyceride [Mass/Vol] 168 mg/dL Normal [facility] Comment on above: Result Comment: The drugs N-Acetylcysteine and Metamizole may falsely depress this assay. Normal range: <150 mg/dL Borderline High: 150-199 mg/dL High: 200-499 mg/dL Very High: >500 mg/dL Performed By: #### L 500.4050, L501.9985, L100.0500, L500.4100 #### [facility] [address] [place], [address] MCV (mean corpuscular volume ) determinationOrdered By: Christa Cruz on 07-16-2024 MCV (RBC) [Entitic vol] 83.7 fL 81-99 [facility] Mean corpuscular hemoglobin (MCH) determinationOrdered By: Christa Cruz on 07-16-2024 MCH (RBC) [Entitic mass] 26.7 pg Low 27.0-32.0 [facility] Mean corpuscular hemoglobin concentration (MCHC) determinationOrdered By: Christa Cruz on 07-16-2024 MCHC (RBC) [Mass/Vol] 31.9 g/dL Low 32-36 [facility] Mean platelet volume determi nationOrdered By: Christa Cruz on 07-16-2024 Platelet mean volume (Bld) [Entitic vol] 11.1 fL 6.2-12.0 [facility] Platelet countOrdered By: Yuliet Cruz on 07-16-2024 Platelets (Bld) [#/Vol] 330 10*3/uL 150-450 [facility] Potassium (Unsp spec) [Mass/ Vol]Ordered By: Christa Cruz on 07-16-2024 Potassium [Moles/Vol] 4.1 mmol/L 3.3-5.1 [facility] RBC Auto (Bld) [#/Vol]Ordere d By: Christa Cruz on 07-16-2024 RBC (Bld) [#/Vol] 4.79 10*6/uL 4.2-5.4 [facility] Screening total cholesterol/ high density lipoprotein (HDL) cholesterol ratioOrdered By: Christa Cruz on 07-16-2024 Cholesterol.total/Cho lesterol in HDL [Mass ratio] 3.98 {ratio} [facility] Serum creatinine measurement (mass/volume)Ordered By: Christa Cruz on 07-16-2024 Creatinine [Mass/Vol] 0.80 mg/dL 0.70-1.20 [facility] Serum globulin measurementOr dered By: Christa Cruz on 07-16-2024 Globulin (S) [Mass/Vol] 3.8 g/dL 2.2-4.2 [facility] Serum glucose measurement (m ass/volume)Ordered By: Christa Cruz on 07-16-2024 Glucose [Mass/Vol] 150 mg/dL High 70-99 [facility] Serum or plasma alanine benito otransferase (ALT) measurementOrdered By: Christa Cruz on 07-16-2024 ALT [Catalytic activity/Vol] 21 U/L <35 [facility] Serum or plasma albumin jamie urement (mass/volume)Ordered By: Christa Cruz on 07-16-2024 Albumin [Mass/Vol] 3.9 g/dL 3.4-4.8 [facility] Serum or plasma albumin/glob ulin mass ratioOrdered By: Christa Cruz on 07-16-2024 Albumin/Globulin [Mass ratio] 1.0 {ratio} 0.9-2.4 [facility] Serum or plasma alkaline bernard sphatase measurementOrdered By: Christa Cruz on 07-16-2024 ALP [Catalytic activity/Vol] 112 U/L High 35-104 [facility] Serum or plasma calcium jamie urement (mass/volume)Ordered By: Christa Cruz on 07-16-2024 Calcium [Mass/Vol] 10.2 mg/dL 7.6-11.0 [facility] Serum or plasma cholesterol in HDL measurement (mass/volume)Ordered By: Christa Cruz on 07-16-2024 Cholesterol in HDL [Mass/Vol] 52 mg/dL >40 [facility] Comment on above: National Cholesterol Education Program (NCEP) guidelines:<40 mg/dL: Low HDL-cholesterol (major risk factor for CHD)>= 60 mg/dL: High HDL-cholesterol (negative risk factor for CHD)HDL-cholesterol is affected by a number of factors, e.g. smoking, exercise, hormones, sex and age. Serum or plasma cholesterol measurement (mass/volume)Ordered By: Christa Cruz on 07-16-2024 Cholesterol [Mass/Vol] 208 mg/dL High <201 [facility] Comment on above: Cholesterol level, D esirable <200 mg/dLBorderline high cholesterol 200-239 mg/dLHigh cholesterol >=240 mg/dLRecommendations of the NCEP Adult Treatment Panel for the following risk-cutoff thresholds for the [place] Spanish population. Serum or plasma urea nitroge n measurement (mass/volume)Ordered By: Christa Cruz on 07-16-2024 Urea nitrogen [Mass/Vol] 17 mg/dL 4-19 [facility] Sodium levelOrdered By: Chi Cruz on 07-16-2024 Sodium [Moles/Vol] 139 mmol/L 133-145 [facility] Total proteinOrdered By: Cody Cruz on 07-16-2024 Protein [Mass/Vol] 7.7 g/dL 5.9-8.4 [facility] Triglycerides measurementOrd ered By: Christa Cruz on 07-16-2024 Triglyceride [Mass/Vol] 168 mg/dL <199 [facility] Comment on above: The drugs N-Acetylcy steine and Metamizole may falsely depress this assay. Normal range: <150 mg/dLBorderline High: 150-199 mg/dLHigh: 200-499 mg/dLVery High: >500 mg/dL White blood cell (WBC) count Ordered By: Christa Cruz on 07-16-2024 WBC (Bld) [#/Vol] 9.9 10*3/uL 4.4-11.0 [facility] Culture, R/O Strep Aon 07-10 CUSTREPA No Group A Beta Streptococcus isolated. Normal [facility] Comment on above: Performed By: #### M 100.677, M100.010 #### [facility] [address] [place], [place], [address] Emergency Department Summary on 07-08-2024 Emergency Department Summary [facility] Medical Records Department [address] [place] [address] Emergency Department Summary 07/08/24 MR#: [id number] Acct: [id number] Name: MERLENE SOW [place] Rep #: [id number] : 1955 68 From: Otto Funk DO PCP: Dr. Christa Cruz MD Status:REG ER Location: ED ADDENDUM by Dr. Otto Funk DO on 07/08/24 at 1412 Nursing notified me that the patient left prior to getting the Decadron or discharge. 07/08/24 1412 Cosigner Signature (if applicable): cc: Dr. Christa Cruz MD * Signed HPI History of Present Illness Chief Complaint: Other, Pain/Inj Narrative Narrative: Patient is a 68-year-old female past medical history hypertension who presents to the emergency department chief complaint of sore throat as well as right ear fullness and right-sided neck discomfort. Patient states that her symptoms have been going on for approximately 3 days now. She states that if she tries to swallow it is painful but notes that she still can eat and drink without any difficulty. Patient denies any recent contacts. Denies any trauma or injury PFSH PFSH Allergy/AdvReac Type Severity Reaction Status Date / Time amoxicillin (From Augmentin) Allergy Severe Other Verified 07/08/24 10:38 cefaclor (From Ceclor) Allergy Severe Swelling Verified 07/08/24 10:38 clavulanic acid (From Allergy Severe Other Verified 07/08/24 10:38 Augmentin) acetaminophen (From [place]) AdvReac Severe Vomiting Verified 07/08/24 10:38 hydrocodone (From [place]) AdvReac Severe Vomiting Verified 07/08/24 10:38 ROS ROS ED ROS Narrative Constitutional: Denies any fevers, chills, headaches, lightness, dizziness Eyes, ears, nose, throat: Complains of sore throat as noted above as well as right ear fullness as noted above denies any difficulty swallowing Cardiovascular: Denies chest pain or palpitations Respiratory: Denies coughing wheezing shortness of breath Abdomen: Denies abdominal pain nausea vomit diarrhea : Denies any urinary symptoms Neurological: Denies numbness, weakness, tingling Musculoskeletal: Denies back pain complains of right sided neck discomfort as noted above Skin: Denies rashes or lesions EXAM Physical Exam Narrative Exam Narrative: General: Patient was lying in bed rest comfortably did not appear to be in acute distress Head: Atraumatic, normocephalic Eyes, ears, nose, throat: Patient has posterior pharynx erythema noted, no concern for peritonsillar abscess, uvula midline, no sublingual swelling Neck: Soft, supple, trachea midline, patient has mild tenderness palpation over the right cervical spinal muscles no midline tenderness palpation, no concern for meningitis Cardiovascular: Regular rate and rhythm no murmurs gallops rubs are noted Respiratory: Clear to auscultation bilaterally Abdomen: No tenderness palpation Extremities: +5/5 strength noted in the bilateral upper and lower extremities, radial pulses +2/4 in the bilateral extremities, no pedal edema on exam Neurological: Patient following commands knew that she was at [facility] years 2024 Skin: Warm, dry, intact no rashes or lesions noted Const Vital Signs: 07/08/24 10:33 Temperature 97.6 F L Temperature Source Temporal Pulse Rate 97 Respiratory Rate 16 Blood Pressure 153/80 H Blood Pressure Mean 104 Pulse Ox 98 Oxygen Delivery Method Room Air MDM MDM MDM Narrative Medical decision making narrative: Patient is a 68-year-old female who presents to the emerged part with a chief complaint of sore throat and right-sided neck discomfort. On the differential diagnose includes but not limited to viral pharyngitis, strep throat, musculoskeletal strain. Once workup is obtained reviewed she will be reevaluated. Patient tested negative for strep here in the emergency department. On reevaluation the patient and she is feeling better to let go home at this point time. Patient will be given a dose of Decadron here in the emergency department for her likely viral pharyngitis. She is advised to rotate Tylenol and appropriate the clock. She is encouraged to follow-up with primary care physician outpatient and return for worsening symptoms and concerns. She is agreeable this plan all question concerns answered she was discharged home in stable condition. Discharge Plan Triage Chief Complaint: Other, Pain/Inj ED Provider: Otto Funk Dx/Rx/DC Orders Clinical Impression: Sore throat Primary Care Provider: Christa Cruz Referrals: Christa Cruz MD [Primary Care Provider] - Activity Restrictions/Additional Instructions: Continue supportive care rotate Tylenol and ibuprofen [id number] when you do this you can take something every 3 hours. Max dose Tylenol 4000 mg max dose of ibuprofen 3200 mg. Return with worseni (more content not included)... Normal [facility] Group A Strep cultureOrdered By: Otto Fnuk on 07-08-2024 S. pyogenes Ag Ql (Throat) No Group A Beta Streptococcus isolated. [facility] M100.677on 07-08-2024 M100.677 Negative Normal [facility] Comment on above: Performed By: #### M 100.677, M100.010 #### [facility] [address] [place], [place], [address] S. pyogenes rRNA Probe Ql (T hroat)Ordered By: Otto Funk on 07-08-2024 Streptococcus pyogenes (PCR) [facility] Breast Limited Unilateralon 04-29-[address] [facility] Imaging Services [address] [place], [place] [id number] Breast Limited Unilateral MR#: [id number] Acct: [id number] Name: MERLENE SOW Rep #: [id number] : 1955 F 68 From: Andrey alvarez MD PCP: Dr. Christa Cruz MD Status: [facility] CLI Study: Breast Limited Unilateral Date of Exam: Exam# [id number] Ordering Dr: Christa Cruz MD [id number] STUDY: ULTRASOUND BREAST - LEFT REASON FOR EXAM: Female, 68 years old. Abnormal screening mammogram. TECHNIQUE: Axial and longitudinal images of the LEFT breast were performed with a high resolution ultrasound transducer. # OF IMAGES: [id number] COMPARISON: Comparison is made with prior mammogram dated April 27, 2024. Comparison is also made with prior sonogram of the left breast dated March 15, 2020. FINDINGS: LEFT Breast: The upper central portion of the left breast was examined with ultrasound there is a 4 mm x 4 mm x 4 mm hypoechoic nodule with a fatty hilum at the 12:00 position of the breast and 5 cm from the nipple. This is suggestive of a small lymph node. A similar appearing hypoechoic nodule with increased central fatty hilum at the 11:00 position of the breast at 2 cm from the nipple measuring 6 mm x 4 mm x 3 mm. This is suggestive of benign lymph node as well. US/Breast Limited Unilateral IMPRESSION: The mammographic findings suggest stable small benign-appearing lymph nodes. Routine mammographic follow-up recommended. ASSESSMENT CATEGORY: BIRADS Category 2: Benign. A letter regarding these results will be sent to the patient by the facility within 30 days. Electronically Signed: Andrey Rios MD at 11:02 EST Reading Location ID and State: [address] [place] [address] , Service support , CC: Dr. Christa Cruz MD Mine Engineer: Signed Normal [facility] SCRN MAMM (CAD)W/ANNE BILATo n 04-27-2024 SCRN MAMM (CAD)W/ANNE BILAT [facility] Imaging Services [address] [place] [id number] SCRN MAMM (CAD)W/ANNE BILAT MR#: [id number] Acct: [id number] Name: MERLENE SOW Rep #: [id number] : 1955 F 68 From: Andrey alvarez MD PCP: Dr. Christa Cruz MD Status: [facility] Study: SCRN MAMM (CAD)W/ANNE BILAT Date of Exam: 04/12 11/03 Exam# [id number] Ordering Dr: Christa Cruz MD [id number] MAMMOGRAPHY - BILATERAL SCREENING REASON FOR EXAM: Female, 68 years old. Routine annual screening examination. PERTINENT HISTORY: Non-contributory. History of removal of a right sebaceous cyst. TECHNIQUE: Digital bilateral breast anne (3D mammographic acquisition) in the CC and MLO projections. 2-D mediolateral oblique (MLO) and craniocaudad (CC) views of both breasts were obtained. CAD: Full Field Digital Mammography with Computer Added Detection was performed. COMPARISON: Comparison is made with prior study dated April 24, 2023 and April 11, 2022. FINDINGS: Breast Composition: The breasts are heterogeneously dense, which may obscure small masses. There are no dominant masses or suspicious calcifications. Stable 7.7 mm and 9 mm well-defined adjacent nodules in the central deep medial aspect of the left breast. Correlation with ultrasound recommended. No other significant abnormalities are identified. BI/SCRN MAMM (CAD)W/ANNE BILAT IMPRESSION: There are 2 adjacent well-defined nodules in the central deep medial aspect of the left breast as described. Prior sonogram demonstrated one nodule to be a lymph node. Further correlation with ultrasound recommended. ASSESSMENT CATEGORY: BIRADS Category 0: Incomplete. Need additional imaging evaluation. A letter regarding these results will be sent to the patient by the facility within 30 days. Approximately 10% of breast cancers are not detected by mammography. A normal mammogram should not delay biopsy of a clinically suspicious abnormality. [id number] Electronically Signed: Andrey Rios MD at 13:04 [facility] , CC: Dr. Christa Cruz MD Mine Engineer: Signed Normal [facility] Cervical AND or Vaginal cyto logy studyon 03-13-2024 Cytology Cervical or vaginal smear or scraping study Pathology report.total SEE COMMENT Gynecologic Cytology Case: [id number] Authorizing Provider: Elbert Rosario MD Collected: 03/13/2024 [facility]8 Ordering Location: [facility] Received: 03/13/2024 1354 [address] First Screen: CAMILLE Lutz Specimen: ThinPrep Liquid-Based Pap-Imaging System Screen, CERVIX, SCREENING Cytology study comment SEE COMMENT A. THINPREP PAP CERVIX, SCREENING - Specimen Adequacy Satisfactory for evaluation; endocervical/transformati on zone component is present General Categorization Negative for intraepithelial lesion or malignancy. Descriptive Interpretation Negative for intraepithelial lesion or malignancy Specimen does not meet the requisition-stated criteria for HPV testing. See Pap test interpretation above. Laboratory comment SEE COMMENT Slide(s) initially screened by CAMILLE YEE at [facility] [address] [facility] [id number] By the signature on this report, the individual or group listed as making the Final Interpretation/Diagnosis certifies that they have reviewed this case. This specimen has been analyzed by the ThinPrep Imaging System ([employer] an automated imaging and review system, which assists the laboratory in evaluating cells on ThinPrep Pap tests. Following automated imaging, selected green from every slide were reviewed by a roller die cutting machine operator and/or pathologist. Cervical cytology is a screening procedure primarily for squamous cancers and precursors and has associated false-negative and false-positives results as evidenced by published data. Your patient's test should be interpreted in this context, together with the patient's history and clinical findings. Regular sampling and follow-up of unexplained clinical signs and symptoms are recommended to minimize false negative results. LAB AP HPV HR Reflex if ASCUS only LAB AP HPV GENOTYPE QUESTION Yes Menstrual History Post-menopausal Normal [facility] Ambulatory Protein Electroph, Son 01-19 Albumin [Mass/Vol] 3.3 g/dL Normal 2.9-4.4 [facility] Comment on above: Performed By: #### L 501.9985, L3100.3450 ####[facility] [address] [facility] [place], [address] Albumin/Globulin [Mass ratio] 0.8 {ratio} Normal 0.7-1.7 [facility] Comment on above: Performed By: #### L 501.9985, L3100.3450 ####[facility] [address] [place], [address] ALPHA-1 GLOBUL 0.3 g/dL Normal 0.0-0.4 [facility] Comment on above: Performed By: #### L 501.9985, L3100.3450 ####[facility] [address] [place], [address] ALPHA-2 GLOBUL 0.8 g/dL Normal 0.4-1.0 [facility] Comment on above: Performed By: #### L 501.9985, L3100.3450 ####[facility] [address] [place], [address] BETA GLOBULIN 1.5 g/dL High 0.7-1.3 [facility] Comment on above: Performed By: #### L 501.9985, L3100.3450 ####[facility] [address] [place], [address] GAMMA GLOBULIN 1.3 g/dL Normal 0.4-1.8 [facility] Comment on above: Performed By: #### L 501.9985, L3100.3450 ####[facility] [address] [place], [address] Globulin (S) [Mass/Vol] 3.9 g/dL Normal 2.2-3.9 [facility] Comment on above: Performed By: #### L 501.9985, L3100.3450 ####[facility] [address] [place], [address] INTERPRETATION Comment Normal . [facility] Comment on above: Result Comment: Prot ein electrophoresis scan will follow via computer, mail, or lightning rod erector delivery. Performed By: #### L 501.9985, L3100.3450 ####[facility] [address] [place], [address] M-SPIKE Not Observed Normal Not Observed [facility] Comment on above: Performed By: #### L 501.9985, L3100.3450 ####[facility] [address] [place], [place], [id number] NOTE: Comment Normal . [facility] Comment on above: Result Comment: The SPE pattern demonstrates an increase in the beta fraction. This may be due to increases in transferrin, beta- lipoprotein (hypercholesterolemia), or immunoglobulins, as seen in polyclonal or monoclonal gammopathies. If clinically indicated, the presence of a monoclonal gammopathy may be confirmed by immunofixation or serum free light chain quantitation. Performed at: [address] [id number] Tractor Mechanic Apprentice: Jony Delgadillo PhD, Phone: [phone] Performed By: #### L 501.9985, [id number] ####[facility] [address] [place], [place], [address] Protein [Mass/Vol] 7.2 g/dL Normal 6.0-8.5 [facility] Comment on above: Performed By: #### L 501.9985, L3100.3450 ####[facility] [address] [place], [place], [id number] Hemoglobin A1con 01-17-2024 HbA1c (Bld) [Mass fraction] 6.5 % High 3.8-5.6 [facility] Comment on above: Result Comment: Norm al < 5.7 % Prediabetic 5.7 - 6.4 % Diabetic >or= 6.5 % Please note range changes. Performed By: #### L 501.9985, L3100.3450 ####[facility] [address] [place], [place], [id number] Inital Evaluation (1) - PTon 11-11-2023 Inital Evaluation (1) - PT [facility] Physical Therapy Health[address] [place] [address] / REHABILITATION SERVICES INITIAL EVALUATION MR#: [id number] Acct: [id number] Name: ANALYMERLENE ALFORD Rep #: [id number] : 1955 67 From: Germán Peralta DPT, OCS, CSCS Referring Dr.: LOPEZ CHRISTIAN Status: REG RCR Insurance: [employer]Y INSURANCE Patient's Visit Information Visit Information Visit Information: MERLENE SOW is a 67 year old F referred to Physical Therapy by LOPEZ CHRISTIAN with a diagnosis of R calf pain. Date of Evaluation: 11/11/23 Physical Therapist: Germán Peralta DPT, OCS, CSCS Visit Plan Frequency: 1-2x /Week Duration: 2-4 Weeks Plan: weekly x 3-4 weeks for 1. progression of stretch and strength via HEP 2. Consider manual therapy to R medial calf if digresses. Today gastroc and soleus stretch 30: 5x 2x/day and B hell raises 3x10 daily with pics Next ecc heel lowering and SLS Subjective Subjective: Was having pain in R calf and into heel off and on since July. Had US which was negative. Not sure why it started but was walking up hill in July and felt stab pain. Happened again walking in 5 CUPS and some sugar lot 3 weeks ago sometimes with stepping down. Takes care of it with ice and ibuprofen and it gets better. Last time took 24 hrs before could walk on it. Has gotten some heel lifts and orthotics and that has helped. Feels tight in calf now but no more pain. Has not hurt in a weeka nd a half. Activities are normal, retired. No regular exercises , but avoids walking for fitness due to back. Wants to do daily walking without thinking it may happen again. Basic ADLs, all I and without pain. Sleep is OK. Objective Objective: Pain tightness/ tenderness is R calf medial. this is mild but noticeable compared to L side. Walking and steps without antalgia today reciprocally. trasnfers I chair and bed. AROM B ankles DF 5 degrees, PF 50 and symmetrical. Strength ankles 4/5 all directions without pain, able to heel raise with just slight uncomfortable transient feeling R medial. reflexes 2/3 patell and achilles B Sensation EL WNL to gross lgiht touch. Balance/Special Test Scores Lower Extremity Functional Score: 48 Goals Goal 1:: I appropriate strength adn stretch calves to avoid future pain Goal Time Frame: 2-4 Weeks Goal 2:: Pt feel 100% back to normal walking Goal Time Frame: 4-6 Weeks Rehabilitation Potential Physical Therapy Diagnosis: recurrent calf strain symptoms Rehabilitation Potential: Good Anticipated Interventions Patient/Client Instruction: Educate patient on: Condition and Plan of Care For the Purpose of:: To decrease pain, To increase ROM, To improve muscle performance and motor function and To increase tolerance to activity/condition/positi on Therapeutic Exercise to Include: Strength training, Flexibilty training, Passive ROM and Active ROM For the Purpose of:: To decrease pain, To increase ROM, To improve nutrient delivery to tissue and To increase tolerance to activity/condition/positi on Manual Therapy Techniques to Include: Passive ROM and Soft tissue mobilization For the Purpose of:: To improve nutrient delivery to tissue Text: Thank you for the opportunity to evaluate your patient. For Medicare and Medicare HMO plans, please review the plan of care and approve it. It will need to be FAXED BACK to us at [phone] for Medicare purposes. For Medicare only, by signing this I certify the plan of care. Please let me know if there are questions or concerns regarding this plan of care. Physician Signature: Date: _ 11/11/23 0943 CC: Dr. Christa Cruz MD; LOPEZ CHRISTIAN EBG Signed Normal [facility] Venous Duplex US, Unilateral on 11-01-2023 Venous Duplex US, Unilateral [facility] Cardiovascular Services [address] [place] [address] Venous Duplex US, Unilateral 11/01/23 0812 MR#: [id number] Acct: [id number] Name: MERLENE SOW Rep #: [id number] : 1955 67 From: Gustavo Landis MD Attending Dr: LOPEZ CHRISTIAN Status: REG CLI Ordering Dr: LOPEZ CHRISTIAN Date: 11/01/23 Location: [facility] Sex: F C Admitted: Reason For Study: Edema RLE RIGHT LEFT GSV is normal. CFV is compressible, spontaneous, phasic, CFV is compressible, spontaneous, phasic, competent, and demonstrates normal competent and demonstrates normal augmentation. augmentation. FV is compressible, spontaneous, phasic, competent and demonstrates normal augmentation. POP V is compressible, spontaneous, phasic, competent and demonstrates normal augmentation. T/P Trunk is compressible. PTV is compressible. RT PerV is compressible. Procedure This is a venous duplex using B-mode, color flow and spectral Doppler. Exam performed in department. A preliminary report was called and/or faxed to [facility]. VL/Venous Duplex US, Unilateral Interpretation Summary There is no evidence of right lower extremity deep vein thrombosis. Right great saphenous vein appears patent and compressible segmentally. Normal flow patterns left common femoral vein ___ Ordering Physician: LOPEZ CHRISTIAN Referring Physician: Christa Cruz Performed By: Maryann Daley, HECTOR, RVT 11/01/23 1227 Date Gustavo Landis MD CC: Dr. Christa Cruz MD; LOPEZ CHRISTIAN Date Dictated: 11/01/23 0812 Date Transcribed: 11/01/23 1227 Mine Engineer: Signed [facility] XR TIBIA FIBULA RIGHT 2 VIEW Son 10-18-2023 XR TIBIA FIBULA RIGHT 2 VIEWS STUDY: Tibia and Fibula Radiographs; 10/18/2023 6:29 PM. INDICATION: Right lower leg pain. COMPARISON: None. ACCESSION NUMBER(S): [id number] ORDERING CLINICIAN: EARNEST ISRAEL TECHNIQUE: 2 view(s) of the right tibia and fibula. FINDINGS: There is no displaced fracture. The alignment is anatomic. Uzdg-te-bilukmpz degenerative changes are noted at the knee. There is a small Olman-Stieda calcification adjacent to the medial femoral condyle and a small calcification which may or may not be related to this at the level of the knee joint medially. The ankle mortise is preserved. There is a small plantar calcaneal spur and question of a rudimentary posterior spur. IMPRESSION: No acute bony abnormalities on x-ray examination of the right tibia and fibula. Mild to moderate degenerative joint disease of the right knee. Signed by Li Chew DO [facility] XR Tibia and Fibula - right 2 Viewson 10-18-2023 No acute bony abnormalities on x-ray examination of the right tibia and fibula. Mild to moderate degenerative joint disease of the right knee. Signed by Li Chew DO TELERADIOLOGY STUDY: Tibia and Fibula Radiographs; 10/18/2023 6:29 PM. INDICATION: Right lower leg pain. COMPARISON: None. ACCESSION NUMBER(S): [id number] ORDERING CLINICIAN: EARNEST ISRAEL TECHNIQUE: 2 view(s) of the right tibia and fibula. FINDINGS: There is no displaced fracture. The alignment is anatomic. Frib-fw-cnyebyxt degenerative changes are noted at the knee. There is a small Olman-Stieda calcification adjacent to the medial femoral condyle and a small calcification which may or may not be related to this at the level of the knee joint medially. The ankle mortise is preserved. There is a small plantar calcaneal spur and question of a rudimentary posterior spur. TELERADIOLOGY Li Chew DO - 10/18/2023 STUDY: Tibia and Fibula Radiographs; 10/18/2023 6:29 PM. INDICATION: Right lower leg pain. COMPARISON: None. ACCESSION NUMBER(S): [id number] ORDERING CLINICIAN: EARNEST ISRAEL TECHNIQUE: 2 view(s) of the right tibia and fibula. FINDINGS: There is no displaced fracture. The alignment is anatomic. Rikz-fa-vlydredg degenerative changes are noted at the knee. There is a small Olman-Stieda calcification adjacent to the medial femoral condyle and a small calcification which may or may not be related to this at the level of the knee joint medially. The ankle mortise is preserved. There is a small plantar calcaneal spur and question of a rudimentary posterior spur. IMPRESSION: No acute bony abnormalities on x-ray examination of the right tibia and fibula. Mild to moderate degenerative joint disease of the right knee. Signed by Li Chew DO [facility] Work Phone: Radiology Study observation (narrative) [facility] Work Phone: XR Tibia and Fibula - right 2 ViewsOrdered By: Li Chew on 10-18-2023 [facility] Work Phone: Whole blood hemoglobin A1c/t otal hemoglobin ratio (mass fraction)Ordered By: Dr. Cruz on 08-21-2022 HbA1c (Bld) [Mass fraction] 6.3 % 3.8-5.6 [facility] Comment on above: Normal < 5.7 % Predi abetic 5.7 - 6.4 % Diabetic >or= 6.5 % Please note range changes. Medicare Annual Wellness Vis iton 07-05-2022 Medicare Annual Wellness Visit *Chief Complaint MCW..6 MO FU History of Present Illness The patient is being seen for the initial annual wellness visit. Past Medical, Surgical and Family History: reviewed and updated in chart. Interval History: Patient has not been hospitalized previously. Medications and Supplements: Review of all medications by a prescribing practitioner or clinical pharmacist (such as prescriptions, OTCs, herbal therapies and supplements) documented in the medical record. No, the patient is not using opioids. Patient Self Assessment of Health Status: excellent. Tobacco use: Non-User Alcohol use: User rare. Illicit drug use: Non-User Current diet: well balanced diet. Exercise Frequency: infrequently. Depression/Suicide Screening: . During the past 2 weeks, the patient has not felt down, depressed or hopeless. During the past 2 weeks, the patient has not felt little interest or pleasure in doing things. Hearing Impairment: none. Cognitive Impairment: No cognitive impairment observed, patient or family reported no cognitive impairment. Bathing: performs independently. Dressing: performs independently. Walking: performs independently. Toileting: performs independently. Feeding: performs independently. Personal Hygiene: performs independently. Bowels: continent. Bladder: continent. Managing Finances: performs independently. Shopping: performs independently. Managing Medications: performs independently. Housework / Basic Home Maintenance: performs independently. Handling Transportation: performs independently. Preparing Meals: performs independently. Using the Telephone/ Communication Devices: performs independently. Falls Risk Screening:. MERLENE has not fallen in the last 6 months. Home safety risk factors: no grab bars in the bathroom. Advance directives:. Advance Care Planning discussed and documented in the medical record, patient did not wish or was not able to name a surrogate decision maker or provide an advance care plan. Patient has no living will. Patient has no healthcare POA. Since the last office visit there have been no interval operations, hospitalizations, important illnesses or injuries. january 01 lab all ok except glu 123, pgm with dm HTN-Takes and tolerates meds without side effects. No alcohol. no tobacco. no exercise. low salt. Reviewed recommendation for 150 minutes of exercise per week including 2 days of weight training if over age 50 Hyperlipidemia- is on statin 50% compliance to avoid ache and a liberal diet. Review of Systems General-no fatigue weight to within 10 pounds ENT no problems with vision swallowing Cardiac no chest pains palpitations change in exercise tolerance or capacity Pulmonary no cough shortness of breath GI no heartburn or abdominal pain Musculoskeletal no joint pains *Active Problems Back pain (724.5) (M54.9) Breast lump in female (611.72) (N63.0) Cough (786.2) (R05.9) Encounter for immunization (V03.89) (Z23) Encounter for Papanicolaou smear of cervix (V76.2) (Z12.4) Encounter for screening mammogram for breast cancer (V76.12) (Z12.31) Hammertoe of second toe of left foot (735.4) (M20.42) Hernia (553.9) (K46.9) History of colon polyps (V12.72) (Z86.010) Hyperlipidemia (272.4) (E78.5) Hypertension (401.9) (I10) Menopause (627.2) (Z78.0) Morbid obesity with BMI of 40.0-44.9, adult (278.01,V85.41) (E66.01,Z68.41) Obesity (278.00) (E66.9) Pre-operative clearance (V72.84) (Z01.818) Primary osteoarthritis of both first carpometacarpal joints (715.14) (M18.0) Sciatica, unspecified laterality (724.3) (M54.30) Screening for breast cancer (V76.10) (Z12.39) Screening for colon cancer (V76.51) (Z12.11) Seasonal allergic rhinitis due to pollen (477.0) (J30.1) Thickened endometrium (793.5) (R93.89) Women's annual routine gynecological examination (V72.31) (Z01.419) Past Medical History History of Delivery of by section (669.70) (O82) 1986_39weeks 1987_39weeks History of Ectopic , tubal (633.10) (O00.109) 1984 History of mammogram (V15.89) (Z92.89) 02/12/2019 History of menopause (V49.81) (Z78.0) 2004 History of Menstruation Onset age 12 years History of Pap test, as part of routine gynecological examination (V76.2) (Z01.419) 03/12/2022; COTEST NEG 02/23/2020: Negative 11/12/2017: Negative Surgical History History of Appendectomy History of Arthroplasty RIGHT History of Bunionectomy History of section History of Cholecystectomy History of Colonoscopy History of Ectopic removal History of Endometrial biopsy 04/13/2020- Thickened endometrium History of Esophagogastroduodenoscop y History of Ganglion cyst excision History of Hysteroscopy 04-29-2014 History of Metatarsal fracture repair History of Tubal ligation History of Umbilical hernia repair Family History Family history of cardiac disorder (V17.49) (Z82.49) Family history of (more content not included)... Normal [employer] Tobacco Screening.on 023 Fall risk assessment a) No falls within the last year [facility] Work Phone: Tobacco use status [facility] b) No [facility] Work Phone: General/Metabolic - Establis hedon 05-29-2022 General/Metabolic - Established Provider Impressions Ms. Merlene Sow is a 66 year old female with a family history of ovarian cancer. Ms. Sow was initially seen in the Cancer [facility]etics Clinic on 04/30/2022 for counseling and coordination of testing. Based on her family history of cancer, the 47-gene common hereditary cancers panel from [employer] was ordered. I called her to review the results of this testing, and our discussion is summarized below. Ms. Sow's results were NEGATIVE, meaning that no disease causing mutations were identified. A genetic cause for her family history of cancer has not been identified. Genes tested: APC, TRAMAINE, AXIN2, BARD1, BMPR1A, BRCA1, BRCA2, BRIP1, CDH1, CDK4, CDKN2A, CHEK2, CTNNA1, DICER1, EPCAM, GREM1, HOXB13, KIT, MEN1, MLH1, MSH2, MSH3, MSH6, MUTYH, NBN, NF1, NTHL1, PALB2, PDGFRA, PMS2, POLD1, POLE, PTEN, RAD50, RAD51C, RAD51D, SDHA, SDHB, SDHC, SDHD, SMAD4, SMARCA4, STK11, TP53, TSC1, TSC2, VHL Negative genetic testing results can be explained by several possibilities: - It is estimated that a small percentage of gene mutations are not identified by current testing technology. Ms. Sow's negative testing results make a hereditary breast cancer syndrome less likely, but they do not rule it out completely. - There could be other genes that may increase the risk for cancer for which there is no testing available at this time. - The cancer in the family is not due to an inherited risk factor, and instead is sporadic or due to chance. Although her results were negative, Ms. Sow and her maternal female family members are considered to be at an increased risk over the general population to develop ovarian cancer based on their family history. Studies suggest that women who have one second-degree relative (aunts, uncles, grandparents, grandchildren, nieces, nephews, half-siblings) with ovarian cancer have about a 3.5% risk to develop ovarian cancer, and women with one first-degree relative with ovarian cancer have about a 5% risk of ovarian cancer (general population risk of ovarian cancer is less than 2% (UptoDate)). There is currently limited effectiveness of available screening for ovarian cancer. Since we do not have good screening for ovarian cancer, Ms. Sow and her female relatives may wish to speak with their healthcare providers about ways to reduce their risk of ovarian cancer, such as control pills and/or surgery (having the ovaries and fallopian tubes removed). We also inquired about Ms. Sow's children's father's side. She shared that her 's care team had a question of a possible bile duct cancer before he , however, he passed before they could confirm a diagnosis. This history is not enough to suggest the need for any additional genetic testing or cancer screenings for Ms. Sow's daughters. They may, however, consider their own testing if they would like in the future. Plan: - I will mail her a copy of her test report. - Our understanding of genetic contribution to cancer diagnoses is always evolving, so there may be additional testing recommended in the future. She can contact us in 2-3 years to determine if there have been any changes since our discussion today. Time spent telecounselin min Sincerely, Yenni Israel MS, [facility] Licensed Genetic Counselor Reviewed by: Dr. Talia Patino MD Clinical Hotel Maintenance Engineer [facility] Chief Complaint A telephone visit (audio only) between the patient (at the originating site) and the provider (at the distant site) was utilized to provide this telehealth service. Patient returns to genetic counseling to discuss results of genetic testing ordered at initial appointment on 04/30/2022. History of Present IllnessPlease review HPI from initial genetics appointment on 04/30/2022. Active Problems Problems Back pain (724.5) (M54.9) Breast lump in female (611.72) (N63.0) Cough (786.2) (R05.9) Encounter for immunization (V03.89) (Z23) Encounter for Papanicolaou smear of cervix (V76.2) (Z12.4) Encounter for screening mammogram for breast cancer (V76.12) (Z12.31) Hammertoe of second toe of left foot (735.4) (M20.42) Hernia (553.9) (K46.9) History of colon polyps (V12.72) (Z86.010) Hyperlipidemia (272.4) (E78.5) Hypertension (401.9) (I10) Menopause (627.2) (Z78.0) Morbid obesity with BMI of 40.0-44.9, adult (278.01,V85.41) (E66.01,Z68.41) Obesity (278.00) (E66.9) Pre-operative clearance (V72.84) (Z01.818) Primary osteoarthritis of both first carpometacarpal joints (715.14) (M18.0) Sciatica, unspecified laterality (724.3) (M54.30) Screening for breast cancer (V76.10) (Z12.39) Screening for colon cancer (V76.51) (Z12.11) Seasonal allergic rhinitis due to pollen (477.0) (J30.1) Thickened endometrium (793.5) (R93.89) Women's annual routine gynecological examination (V72.31) (Z01.419) Past Medical History Problems History of Delivery of by section (669.70) (O82) 1986_39weeks 1987_39weeks History of (more content not included)... Normal [facility] Office Visit (Primary Care T xt/Forms)on 05-25-2022 Follow-up visit Diagnoses/Problems Assessed Cough (786.2) (R05.9) Orders Cough Start: Azithromycin 250 MG Oral Tablet; TAKE 2 TABLETS ON DAY 1 THEN TAKE 1 TABLET A DAY FOR 4 DAYS Start: Benzonatate 200 MG Oral Capsule; TAKE 1 CAPSULE 3 TIMES DAILY NEEDED Start: predniSONE 20 MG Oral Tablet; TAKE 2 TABLETS DAILY Chief Complaint COUGH, DIARRHEA X1 MO- HAS TRIED IMMODIUM AD- MUCINEX- DAYQUIL, NYQUIL, ROBITUSSIN(MADE DIARRHEA WORSE) History of Present Illness It is really mostly upper airway congestion nasal congestion cough sometimes productive with a little bit of loose stool. The throat and ears are getting better but the sinus pressure and cough are still not any better. Benign exam with good air exchange in the lungs. Z-Regan Prednisone for 5 days Tessalon cough pills Warned her that any antibiotic could make the diarrhea/loose stools worse. Please call if she has major troubles. Review of Systems Constitutional: No weakness, No fatigue. Eye: No blurring, No visual disturbances. Respiratory: No shortness of breath, + cough. Cardiovascular: No chest pain, No palpitations. Gastrointestinal: No nausea, + diarrhea, No constipation. Musculoskeletal: No joint pain, No muscle pain. Integumentary: No rash, No breakdown. Neurologic: Alert and oriented X4, No headache. Psychiatric: No irritability, No sleeping problems. Active Problems Problems Back pain (724.5) (M54.9) Breast lump in female (611.72) (N63.0) Encounter for immunization (V03.89) (Z23) Encounter for Papanicolaou smear of cervix (V76.2) (Z12.4) Encounter for screening mammogram for breast cancer (V76.12) (Z12.31) Hammertoe of second toe of left foot (735.4) (M20.42) Hernia (553.9) (K46.9) History of colon polyps (V12.72) (Z86.010) Hyperlipidemia (272.4) (E78.5) Hypertension (401.9) (I10) Menopause (627.2) (Z78.0) Morbid obesity with BMI of 40.0-44.9, adult (278.01,V85.41) (E66.01,Z68.41) Obesity (278.00) (E66.9) Pre-operative clearance (V72.84) (Z01.818) Primary osteoarthritis of both first carpometacarpal joints (715.14) (M18.0) Sciatica, unspecified laterality (724.3) (M54.30) Screening for breast cancer (V76.10) (Z12.39) Screening for colon cancer (V76.51) (Z12.11) Seasonal allergic rhinitis due to pollen (477.0) (J30.1) Thickened endometrium (793.5) (R93.89) Women's annual routine gynecological examination (V72.31) (Z01.419) Past Medical History Problems History of Delivery of by section (669.70) (O82) History of Ectopic , tubal (633.10) (O00.109) History of mammogram (V15.89) (Z92.89) History of menopause (V49.81) (Z78.0) History of Menstruation History of Pap test, as part of routine gynecological examination (V76.2) (Z01.419) Surgical History Problems History of Appendectomy History of Arthroplasty History of Bunionectomy History of section History of Cholecystectomy History of Colonoscopy History of Ectopic removal History of Endometrial biopsy History of Esophagogastroduodenoscop y History of Ganglion cyst excision History of Hysteroscopy History of Metatarsal fracture repair History of Tubal ligation History of Umbilical hernia repair Family History Mother Family history of cardiac disorder (V17.49) (Z82.49) Family history of coronary artery disease (V17.3) (Z82.49) Family history of malignant neoplasm of ovary (V16.41) (Z80.41) Family history of myocardial infarction (V17.3) (Z82.49) Father Family history of cardiac disorder (V17.49) (Z82.49) Family history of coronary artery disease (V17.3) (Z82.49) Family history of malignant melanoma (V16.8) (Z80.8) Brother Family history of hyperlipidemia (V18.19) (Z83.438) Grandparent Family history of diabetes mellitus (V18.0) (Z83.3) Social History Problems Consumes alcohol (V49.89) (Z78.9) Former smoker (V15.82) (Z87.891) No advance directives (V49.89) (Z78.9) Current Meds Medication NameInstruction amLODIPine Besylate 5 MG Oral TabletTAKE 1 TABLET DAILY. Aspirin 81 MG Oral Tablet Delayed ReleaseTAKE 1 TABLET DAILY DIRECTED. Fluticasone Propionate 50 MCG/ACT Nasal SuspensionUSE 2 SPRAYS IN EACH NOSTRIL TWICE DAILY. hydroCHLOROthiazide 25 MG Oral TabletTAKE 1 TABLET DAILY DIRECTED. Ibuprofen 200 MG Oral TabletTake 1 tablet twice daily Multi-Vitamin Oral TabletTAKE 1 TABLET DAILY. Naproxen Sodium 220 MG Oral Tablet Saline Nasal [place] 0.65 % Nasal SolutionUSE DIRECTED. Simvastatin 20 MG Oral TabletTAKE 1 TABLET AT BEDTIME. Tums Ultra 1000 1000 MG Oral Tablet Chewable Valsartan 320 MG Oral TabletTAKE 1 TABLET DAILY. Allergies Medication Ceclor [place] TABS Augmentin Vitals Vital Signs Recorded: 25May2022 11:20AM Heart Rate: 84 Systolic: 136 Diastolic: 72 Height: 5 ft 3 in Weight: 218 lb 3 oz BMI Calculated: 38.65 kg/m2 BSA Calculated: 2.01 Tobacco Use: b) No PHQ-2 #1. Over the last 2 weeks have you felt down, depress (more content not included)... Normal [facility] Tobacco Screening.on 023 Adult depression screening assessment No [facility] Work Phone: Fall risk assessment a) No falls within the last year [facility] Work Phone: Tobacco use status CPHS b) No [facility] Work Phone: Office Visit (Genetics)on Follow-up visit Provider Impressions Ms. MERLENE SOW is a 66 year year old female with a family history of ovarian cancer. Based on her mother's ovarian cancer diagnosis, Ms. SOW meets NCCN criteria for testing of the BRCA1 and BRCA2 genes. She is interested in testing, which is recommended, and was ordered today via the 47-gene common hereditary cancers panel from [employer]. Our discussion is summarized below. We reviewed genes and chromosomes, inherited forms of breast and ovarian cancer, and the BRCA1 and BRCA2 genes causing HBOC. We discussed that most cancers are not due to an inherited genetic susceptibility. However, in about 5-10% of families, there is an inherited genetic mutation that can make a person more susceptible to developing certain forms of cancer. Within these families, we often see multiple family members with cancer, occurring in multiple generations. In addition, earlier onset and bilateral cancers are suggestive of an inherited form of cancer. Finally, there is a clustering of certain types of cancer in these families, such as breast and ovarian cancer. We discussed the BRCA1 and BRCA2 genes, which are two genes that have been linked to early-onset breast and/or ovarian cancer. Changes in these genes (sometimes referred to as mutations) are inherited in a dominant pattern and confer up to an 87% lifetime risk for breast cancer. This is elevated compared to the general population risk of 10-12%. In addition, BRCA1 and BRCA2 mutation carriers have up to a 45% lifetime risk for ovarian cancer, which is elevated over the 2% general population risk. Mutation carriers who have already been diagnosed with cancer have an increased risk to develop a second, contralateral breast cancer. BRCA2 gene mutation carriers have an increased risk for male breast cancer, prostate cancer, melanoma and pancreatic cancer. We discussed that there are multiple genes associated with increased breast and gynecologic cancer risk. Some genes, like the BRCA1 and BRCA2 genes, are considered highly penetrant breast cancer genes, meaning a mutation in the gene confers a high risk of breast cancer. Additionally, there are other intermediate (moderate risk) breast cancer genes. For some of the moderate risk genes, there is often limited information regarding the degree to which a mutation in the gene affects risk of different types of cancers. Additionally, for some of these moderate risk genes, the appropriate management for individuals who have a mutation in one of these genes is not always clear. Our knowledge about the cancer risks associated with mutations in these moderate risk genes is always growing, and we will likely be able to provide more comprehensive information in the future. Most cancer predisposition genetic changes, such as those in BRCA1 and BRCA2, are inherited in an autosomal dominant fashion. This means that if an individual has a change in either of these genes, their siblings and children have a 50% chance of also having that gene change and a 50% chance of not having the gene change. We reviewed the three results we can get back: 1. Positive- Identified a change in a cancer gene that confers an increased cancer risk. We will discuss potential changes in management for her and her family based on the specific gene mutation found. 2. Negative- Clears her for a majority of predisposition cancer syndromes that we are aware of, but cannot clear her for any/all cancer predisposition risks. She would continue to be screened based on her personal and family history. 3. Variant of Uncertain Significance (VUS) - We discussed should an uncertain result come back that this would be treated like a negative result (i.e. no management recommendation will be made no familial variant testing) as the implications of this finding are currently unknown. Lastly, we discussed the Genetic Information Non-discrimination Act (WILLIAM) of 2008. We discussed that per this federal law, employers (at companies with 15 employees or greater) and health insurance companies (barring and other insurances) are forbidden to ask for and use genetic information against another person. As such, health insurance companies cannot ask for genetic information and use findings affect coverage or rates. However, luxury insurances such as life insurance, jail care insurance, and/or private disability insurance companies are not forbidden against using genetic information when an individual takes out a new/additional policy in one of those areas. As such, for unaffected individuals it could be beneficial to explore/take out policies in luxury insurance areas PRIOR to undergoing genetic testing. Ms. SOW was counseled about hereditary cancer susceptibility including cancer risks, options for increased screening and/or risk reduction, genetic testing, and the implications for other family members. We discussed performing genetic testing in the context of a multi-gene panel test that looks at the BRCA1 and BRCA2, a (more content not included)... 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 : Family history of ovarian cancer Medical Genetics Referral Evaluation and Treatment Evaluate AND Treat Status: Hold For - Scheduling Requested for: 12Mar2022 Provider Impressions 1. Annual 2. Screening mammogram 3. Family history of ovarian cancer Will refer patient to genetic counseling due to family history of ovarian cancer. Will obtain pelvic ultrasound and she will be called with the results. Follow-up in 2 years or as needed. Chief Complaint Patient is here for yearly exam. Patient does self breast exams regularly. LMP JUNG PT HAS NO CONCERNS. History of Present IllnessPresents for annual exam. She voices no complaints and is doing well. Denies any bowel or bladder problems. Denies any breast problems. Denies any postmenopausal bleeding. Patient has no family history of ovarian cancer and has had pelvic ultrasound on a yearly basis. Review of Systems Review of Systems: Constitutional: No fever or chills Respiratory: No shortness of breath, or cough Cardiovascular: No chest pain or syncope Breasts: No breast pain, no masses, no nipple discharge Gastrointestinal: No nausea, vomiting, or diarrhea, no abdominal pain Genitourinary: No dysuria or frequency Gynecology: Negative except as noted in history of present illness All other: All other systems reviewed and negative for complaint Active Problems Problems Back pain (724.5) (M54.9) Breast lump in female (611.72) (N63.0) Encounter for immunization (V03.89) (Z23) Encounter for Papanicolaou smear of cervix (V76.2) (Z12.4) Encounter for screening mammogram for breast cancer (V76.12) (Z12.31) Hammertoe of second toe of left foot (735.4) (M20.42) Hernia (553.9) (K46.9) History of colon polyps (V12.72) (Z86.010) Hyperlipidemia (272.4) (E78.5) Hypertension (401.9) (I10) Menopause (627.2) (Z78.0) Morbid obesity with BMI of 40.0-44.9, adult (278.01,V85.41) (E66.01,Z68.41) Obesity (278.00) (E66.9) Pre-operative clearance (V72.84) (Z01.818) Primary osteoarthritis of both first carpometacarpal joints (715.14) (M18.0) Sciatica, unspecified laterality (724.3) (M54.30) Screening for breast cancer (V76.10) (Z12.39) Screening for colon cancer (V76.51) (Z12.11) Seasonal allergic rhinitis due to pollen (477.0) (J30.1) Thickened endometrium (793.5) (R93.89) Women's annual routine gynecological examination (V72.31) (Z01.419) Past Medical History Problems History of Delivery of by section (669.70) (O82) 1986_39weeks 1987_39weeks History of Ectopic , tubal (633.10) (O00.109) 1984 History of mammogram (V15.89) (Z92.89) 02/12/2019 History of menopause (V49.81) (Z78.0) 2004 History of Menstruation Onset age 12 years History of Pap test, as part of routine gynecological examination (V76.2) (Z01.419) 02/23/2020: Negative 11/12/2017: Negative Surgical History Problems History of Appendectomy History of Arthroplasty RIGHT History of Bunionectomy History of section History of Cholecystectomy History of Colonoscopy History of Ectopic removal History of Endometrial biopsy 04/13/2020- Thickened endometrium History of Esophagogastroduodenoscop y History of Ganglion cyst excision History of Hysteroscopy 04-29-2014 History of Metatarsal fracture repair History of Tubal ligation History of Umbilical hernia repair Family History Mother Family history of cardiac disorder (V17.49) (Z82.49) Family history of coronary artery disease (V17.3) (Z82.49) Family history of malignant neoplasm of ovary (V16.41) (Z80.41) Family history of myocardial infarction (V17.3) (Z82.49) Father Family history of cardiac disorder (V17.49) (Z82.49) Family history of coronary artery disease (V17.3) (Z82.49) Family history of malignant melanoma (V16.8) (Z80.8) Brother Family history of hyperlipidemia (V18.19) (Z83.438) Grandparent Family history of diabetes mellitus (V18.0) (Z83.3) Social History Problems Consumes alcohol (V49.89) (Z78.9) Former smoker (V15.82) (Z87.891) No advance directives (V49.89) (Z78.9) Allergies Medication Ceclor (more content not included)... [facility] Office Visit (Primary Care T xt/Forms)on 01-02-2022 Follow-up visit Diagnoses/Problems Assessed Morbid obesity with BMI of 40.0-44.9, adult (278.01,V85.41) (E66.01,Z68.41) Hypertension (401.9) (I10) Hyperlipidemia (272.4) (E78.5) Orders Encounter for immunization Temporarily Stop: Influenza, seasonal, injectable Hypertension Renew: amLODIPine Besylate 5 MG Oral Tablet; TAKE 1 TABLET DAILY Renew: hydroCHLOROthiazide 25 MG Oral Tablet; TAKE 1 TABLET DAILY DIRECTED Renew: Valsartan 320 MG Oral Tablet; TAKE 1 TABLET DAILY Patient Discussion/Summary 6 month appointment. Chief Complaint 6 MO FU. REV LABS History of Present Illness Since the last office visit there have been no interval operations, hospitalizations, important illnesses or injuries. dr sherman staerted statin yrs ago , has + fam hx and htn. HTN-Takes and tolerates meds without side effects. No alcohol. no tobacco. no exercise. low salt. Reviewed recommendation for 150 minutes of exercise per week including 2 days of weight training if over age 50 Hyperlipidemia- is on statin and a prudent diet. Review of Systems General-no fatigue weight to within 10 pounds ENT no problems with vision swallowing Cardiac no chest pains palpitations change in exercise tolerance or capacity Pulmonary no cough shortness of breath GI no heartburn or abdominal pain Musculoskeletal knees and hip joint pains Active Problems Problems Back pain (724.5) (M54.9) Breast lump in female (611.72) (N63.0) Encounter for immunization (V03.89) (Z23) Encounter for Papanicolaou smear of cervix (V76.2) (Z12.4) Hammertoe of second toe of left foot (735.4) (M20.42) Hernia (553.9) (K46.9) History of colon polyps (V12.72) (Z86.010) Hyperlipidemia (272.4) (E78.5) Hypertension (401.9) (I10) Menopause (627.2) (Z78.0) Obesity (278.00) (E66.9) Pre-operative clearance (V72.84) (Z01.818) Primary osteoarthritis of both first carpometacarpal joints (715.14) (M18.0) Sciatica, unspecified laterality (724.3) (M54.30) Screening for breast cancer (V76.10) (Z12.39) Screening for colon cancer (V76.51) (Z12.11) Seasonal allergic rhinitis due to pollen (477.0) (J30.1) Thickened endometrium (793.5) (R93.89) Women's annual routine gynecological examination (V72.31) (Z01.419) Past Medical History Problems History of Delivery of by section (669.70) (O82) History of Ectopic , tubal (633.10) (O00.109) History of mammogram (V15.89) (Z92.89) History of menopause (V49.81) (Z78.0) History of Menstruation History of Pap test, as part of routine gynecological examination (V76.2) (Z01.419) Surgical History Problems History of Appendectomy History of Arthroplasty History of Bunionectomy History of section History of Cholecystectomy History of Colonoscopy History of Ectopic removal History of Endometrial biopsy History of Esophagogastroduodenoscop y History of Ganglion cyst excision History of Hysteroscopy History of Metatarsal fracture repair History of Tubal ligation History of Umbilical hernia repair Family History Mother Family history of cardiac disorder (V17.49) (Z82.49) Family history of coronary artery disease (V17.3) (Z82.49) Family history of malignant neoplasm of ovary (V16.41) (Z80.41) Family history of myocardial infarction (V17.3) (Z82.49) Father Family history of cardiac disorder (V17.49) (Z82.49) Family history of coronary artery disease (V17.3) (Z82.49) Family history of malignant melanoma (V16.8) (Z80.8) Brother Family history of hyperlipidemia (V18.19) (Z83.438) Grandparent Family history of diabetes mellitus (V18.0) (Z83.3) Social History Problems Consumes alcohol (V49.89) (Z72.89) Former smoker (V15.82) (Z87.891) No advance directives (V49.89) (Z78.9) Current Meds Medication NameInstruction amLODIPine Besylate 5 MG Oral TabletTAKE 1 TABLET DAILY. Aspirin 81 MG Oral Tablet Delayed ReleaseTAKE 1 TABLET DAILY DIRECTED. Fluticasone Propionate 50 MCG/ACT Nasal SuspensionUSE 2 SPRAYS IN EACH NOSTRIL TWICE DAILY. hydroCHLOROthiazide 25 MG Oral TabletTAKE 1 TABLET DAILY DIRECTED. Ibuprofen 200 MG Oral TabletTake 1 tablet twice daily Multi-Vitamin Oral TabletTAKE 1 TABLET DAILY. Naproxen Sodium 220 MG Oral Tablet Saline Nasal [place] 0.65 % Nasal SolutionUSE DIRECTED. Simvastatin 20 MG Oral TabletTAKE 1 TABLET AT BEDTIME. Tums Ultra 1000 1000 MG Oral Tablet Chewable Valsartan 320 MG Oral TabletTAKE 1 TABLET DAILY. Allergies Medication Ceclor [place] TABS Augmentin Vitals Vital Signs Recorded: [id number] 09:46AM Heart Rate: 78 Systolic: 124 Diastolic: 72 Height: 5 ft Weight: 216 lb 8 oz BMI Calculated: 42.28 kg/m2 BSA Calculated: 1.93 Tobacco Use: b) No Falls Screening (Age 18+): a) No falls within the last year O2 Saturation: 98 Physical Exam General: Alert, No acute distress. Appears stated age Eye: Pupils are equal, round and reactive to light, Extraocular movements are in (more content not included)... Normal [facility] Tobacco Screening.on 022 Fall risk assessment a) No falls within the last year [facility] Work Phone: Tobacco use status CPHS b) No [facility] Work Phone: Basophil percentageon 2021 Bilirubin [Mass/Vol] 0.40 mg/dL 0.20-1.00 [facility] Work Phone: Comment on above: For patients on eltr ombopag therapy, use of Dimension [place] TBIL is not recommended. Chloride [Moles/Vol] 102 mmol/L 98-107 [facility] Work Phone: Cholesterol [Mass/Vol] 137 mg/dL <200 [facility] Work Phone: Comment on above: <200 mg/dL Desirable 200-240 mg/dL Borderline >240 mg/dL High Risk Glucose [Mass/Vol] 123 mg/dL 74-106 [facility] Work Phone: Comment on above: Fasting Glucose resu lt from 100 to 125 mg/dL suggests IMPAIRED HOMEOSTASIS per A.D.A. criteria. Potassium [Moles/Vol] 3.5 mmol/L 3.5-5.1 [facility] Work Phone: Protein [Mass/Vol] 7.6 g/dL 6.4-8.2 [facility] Work Phone: Sodium [Moles/Vol] 138 mmol/L 136-145 [facility] Work Phone: Triglyceride [Mass/Vol] 140 mg/dL <199 [facility] Work Phone: Comment on above: The drugs N-Acetylcy steine and Metamizole may falsely depress this assay.Serum Triglycerides Reference Interval Normal <150 mg/dL Borderline high 150 - 199 mg/dL High 200 - 499 mg/dL Very High > or = 500 mg/dL WBC (Bld) [#/Vol] 9.1 10*3/uL 4.4-11.0 [facility] Work Phone: Blood erythrocytes count (nu mber/volume)on 12-23-2021 RBC (Bld) [#/Vol] 5.13 10*6/uL 4.2-5.4 [facility] Work Phone: Blood hemoglobin measurement (mass/volume)on 12-23-2021 Hemoglobin (Bld) [Mass/Vol] 13.5 g/dL 12.0-15.0 [facility] Work Phone: Blood platelet mean volumeon 12-23-2021 Platelet mean volume (Bld) [Entitic vol] 11.8 fL 6.2-12.0 [facility] Work Phone: Determination of erythrocyte mean corpuscular volume (MCV)on 12-23-2021 MCV (RBC) [Entitic vol] 83.0 fL 81-99 [facility] Work Phone: Hematocrit Auto (Bld) [Volum e fraction]on 12-23-2021 Hematocrit (Bld) [Volume fraction] 42.6 % 37-47 [facility] Work Phone: Laboratory - Chemistry and C hemistry - challengeon 12-23-2021 ALP [Catalytic activity/Vol] 97 U/L 45-117 [facility] Work Phone: ALT [Catalytic activity/Vol] 31 U/L 13-56 [facility] Work Phone: CO2 [Moles/Vol] 29.0 mmol/L 21.0-32.0 [facility] Work Phone: Globulin (S) [Mass/Vol] 4.3 g/dL 2.2-4.2 [facility] Work Phone: Urea nitrogen/Creatinine [Mass ratio] 25.1 mg/mg 10-20 [facility] Work Phone: Laboratory - Hematology and Cell countson 12-23-2021 Erythrocyte distribution width (RBC) [Entitic vol] 45.4 fL 35.1-43.9 [facility] Work Phone: Erythrocyte distribution width (RBC) [Ratio] 15.0 % 11.6-14.6 [facility] Work Phone: MCH (RBC) [Entitic mass] 26.3 pg 27.0-32.0 [facility] Work Phone: MCHC Auto (RBC) [Mass/Vol]on 12-23-2021 MCHC (RBC) [Mass/Vol] 31.7 g/dL 32-36 [facility] Work Phone: No Panel Informationon 12-23 Estimated GFR (MDRD) Amer 112 mL/min >60 [facility] Work Phone: Comment on above: GFR Calc Estimated GFR (MDRD) Non-Af Amer 92 mL/min >60 [facility] Work Phone: Comment on above: Non- GFR Calc Platelets bldon 12-23-2021 Platelets (Bld) [#/Vol] 279 10*3/uL 150-450 [facility] Work Phone: Serum or plasma albumin jamie urement (mass/volume)on 12-23-2021 Albumin [Mass/Vol] 3.3 g/dL 3.2-5.0 [facility] Work Phone: Serum or plasma albumin/glob ulin mass ratioon 12-23-2021 Albumin/Globulin [Mass ratio] 0.8 {ratio} 0.9-2.4 [facility] Work Phone: Serum or plasma calcium jamie urement (mass/volume)on 12-23-2021 Calcium [Mass/Vol] 9.2 mg/dL 8.5-10.1 [facility] Work Phone: Serum or plasma cholesterol in HDL measurement (mass/volume)on 12-23-2021 Cholesterol in HDL [Mass/Vol] 46 mg/dL >40 [facility] Work Phone: Comment on above: The drugs N-Acetylcy steine and Metamizole may falsely depress this assay. Reference Range HDL <40 mg/dL Low HDL Cholesterol HDL >or= 60 mg/dL High HDL Cholesterol Serum or plasma cholesterol in VLDL measurement (mass/volume)on 12-23-2021 Cholesterol in VLDL [Mass/Vol] 28 mg/dL 5-40 [facility] Work Phone: Serum or plasma creatinine m easurement (mass/volume)on 12-23-2021 Creatinine [Mass/Vol] 0.68 mg/dL 0.55-1.02 [facility] Work Phone: Comment on above: The validity of the calculated GFR & GFRAA in patients over 70 years has not been determined. Clinical correlation is essential. Serum or plasma low density lipoprotein (LDL) cholesterol measurement (mass/volume)on 12-23-2021 Cholesterol in LDL [Mass/Vol] 63 mg/dL 0-130 [facility] Work Phone: Serum or plasma urea nitroge n measurement (mass/volume)on 12-23-2021 Urea nitrogen [Mass/Vol] 17 mg/dL 7-18 [facility] Work Phone: Thin prep Papanicolaou smear with manual screeningon 12-23-2021 Thin prep Papanicolaou smear with manual screening 19 U/L 15-37 [facility] Work Phone: Thin prep Papanicolaou smear with manual screening 7 5-15 [facility] Work Phone: Tobacco Screening.on 022 Adult depression screening assessment No [facility] Work Phone: Fall risk assessment a) No falls within the last year [facility] Work Phone: Tobacco use status CP b) No [facility] Work Phone: LMPon 03-08-2021 Last menstrual period start date [facility] [address] Work Phone: Tobacco use status [facility] b) [facility] [address] Work Phone: Coronavirus 2019 RNA by PCR, Screening Asymptomticon 01-30-2021 Coronavirus 2019 RNA by PCR, Screening Asymptomtic Not detected Normal See Below [facility] Work Phone: Comment on above: SOURCE: Nasal, Nasop haryngealReference Range: Not Detected.This assay is designed to detect the N, ORF1ab and/or S genes of SARS-CoV-2 via nucleic acid amplification. A Negative (NOT DETECTED) result does not preclude 2019-nCoV infection since the adequacy of sample collection and/or low viral burden may result in presence of viral nucleic acids below the clinical sensitivity of this test method. Negative (NOT DETECTED) result should not be used as the sole basis for treatment or other patient management decisions. Rather negative results should be combined with clinical observations, patient history, and epidemiological information to make patient management decisions.Fact sheet for providers: https://www.fda.gov/media/692041/downloadFact sheet for patients: https://www.fda.gov/media/979047/downloadThis test has received FDA Emergency Use Authorization (EUA) and has been verified by [facility] ([facility]). This test is only authorized for the duration of time that circumstances exist to justify the authorization of the emergency use of in vitro diagnostic tests for the detection of SARS-CoV-2 virus and/or diagnosis of COVID-19 infection under section 564(b)(1) of the Act, 21 U.S.C. 360bbb-3(b)(1), unless the authorization is terminated or revoked sooner. [facility] is certified under CLIA-88 as qualified to perform high complexity testing. Testing is performed in the [facility] laboratories located at [address] [place] [address]. Tobacco Screening.on Fall risk assessment a) No falls within the last year [facility] Work Phone: Tobacco use status [facility] b) No [facility] Work Phone: Tobacco Screening.on Fall risk assessment a) No falls within the last year [employer] [facility] Work Phone: Tobacco use status CPHS b) No [employer] [facility] Work Phone: Provider Note - ED v2on 07-11 Provider Note - ED v2 Provider Note - ED v2: Chart Review: HISTORY OF PRESENTING ILLNESS MERLENE is a 63 year old Female and was seen by me at 21-Jul-2019 11:29 for a chief complaint of (Cold symptoms). Other complaints include: Presents for evaluation of URI. Symptoms including cough, congestion, sinus pressure, and headache have been present for several weeks and refractory to OTC meds. No fever, chills, nausea, vomiting, abdominal pain, CP, or SOB. No exacerbating factors . Triage Information: Most recent Vital Sign Value Date PAST MEDICAL HISTORY ATTESTATION: I have reviewed and confirmed nurse's/medic's notes for patient's medications, allergies, medical history, and surgical history ALLERGIES/INTOLERANCES: Allergy Allergen: Ceclor Type: Drug Reaction: Other Allergen: [place] Type: Drug Reaction: Other Allergen: Augmentin Type: Drug Reaction: Other HEALTH HISTORY: No documented data. OUTPATIENT MEDICATIONS: Home Medications Review Status for Reconciliation: Complete Med Status: Patient Currently Takes Medications Drug Name: valsartan 320 mg oral tablet Instructions: 1 tab(s) orally once a day Drug Name: hydroCHLOROthiazide 25 mg oral tablet Instructions: 1 tab(s) orally once a day Drug Name: simvastatin 20 mg oral tablet Instructions: orally every other day (at bedtime) Drug Name: amLODIPine 5 mg oral tablet Instructions: 1 tab(s) orally once a day Drug Name: Aleve 220 mg oral capsule Instructions: orally once a day SIGNIFICANT EVENTS: Other Description:NO RECENT TRAVEL OUT OF THE US Past Medical History Description:ASTHMA/ ANEMIA/BLOOD CLOTTING DISORDER /ANXIETY Past Surgical History Description:URETER IMPLANTATION/APPENDECTOMY /TONSILLECTOMY Description:TUBAL LIGATION/ UTERINE LINING CAUTERIZATION REVIEW OF SYSTEMS REVIEW OF SYSTEMS: Comments Review of Systems Constitutional: See HPI Eye: No recent visual problem. ENT: See HPI Respiratory: The history of present illness Musculoskeletal: No decreased range of motion. Integumentary: No rash. Neurologic: Alert and oriented X4, No numbness, No tingling. All other systems are negative PHYSICAL EXAM CONSTITUTIONAL: Well appearing, well nourished, awake, alert, oriented to person, place, time/situation and in no apparent distress. HENMT: Bilateral maxillary sinus tenderness; nasal congestion noted; generalized cervical lymph node tenderness; unremarkable oropharynx; uvula midline EYES: Clear bilaterally, pupils equal, round and reactive to light. CARDIOVASCULAR: Normal rate, regular rhythm. RESPIRATORY: Breath sounds clear and equal bilaterally. MUSCULOSKELETAL: Spine appears normal, range of motion is not limited, no muscle or joint tenderness. NEUROLOGICAL: Alert and oriented, no focal deficits, no motor or sensory deficits. MEDICAL DECISION MAKING/ED COURSE MDM/ED COURSE: Exam consistent with upper respiratory infection and sinusitis. Prescriptions for doxycycline and low-dose prednisone. Patient's clinical presentation is otherwise unremarkable at this time. Patient is discharged with instructions to follow-up with primary care or seek emergency medical attention for worsening symptoms or any new concerns. CLINICAL IMPRESSION Diagnosis/Annotation: ED Dx Name:Acute sinusitis Code:J01.90 Name:URI (upper respiratory infection) Code:J06.9 Dispostion: discharged Type: home ATTESTATION CRITICAL CARE TIME Is this a critically ill patient: no Electronic Signatures: Chris Garcia (PAC) (Signed 21-Jul-2019 12:06) Authored: Provider Note - ED v2 Last Updated: 21-Jul-2019 12:06 by Newbill, Chris (PAC) [facility] [place] Mamm Screen w/CAD if perf ormed bilaton 02-13-2019 [place] Mamm Screen w/CAD if performed bilat Exam Date/Time: 02/12/2019 14:03 EDT Reason for Exam: SCREENING HX OF OVARIAN CA;Screening Report STUDY: Digital mammography screening; 02/12/2019 2:03 pm ACCESSION NUMBER(S): [id number] ORDERING CLINICIAN: Elbert Rosario INDICATION: Screening. COMPARISON: Comparison is made to prior digital mammograms dated 01/06/2018 and 11/01/2016 FINDINGS: CC and MLO 2D digital mammographic images of the bilateral breasts were obtained. There are areas of scattered fibroglandular tissue. A well-defined rounded mass is seen in the medial aspect of the left breast, unchanged from prior studies.No new or enlarging mass or focal asymmetry is identified. No suspicious microcalcifications or foci of architectural distortion are seen. There has been no significant change. This study was interpreted with CAD. IMPRESSION: No mammographic evidence of malignancy. BI-RADS CATEGORY: Category: 2 - Benign Finding. Recommendation: Normal Interval Follow-up, Over Age 40. Recall Interval: 12 Months. Breast Density: Scattered Fibroglandular Density. FINAL REPORT Dictated: 02/13/2019 9:49 am Anthony Negron MD Signed (Electronic Signature): 02/13/2019 9:49 am Signed by: Anthony Negron MD Technologist: RAMAKRISHNA Assessment: BI-RADS Category 2-Benign finding Recommendation: Normal interval follow-up Normal [facility] US Pelvis Non-OB Completeon 02-13-2019 US Pelvis Non-OB Complete Exam Date/Time: 02/12/2019 13:52 EDT Reason for Exam: SCREENING HX OF OVARIAN CA;Other (please specify) Report STUDY: US Pelvis Non-OB Complete; US Transvaginal Non-OB; 02/12/2019 1:52 pm INDICATION: Family history ovarian cancer COMPARISON: None. ACCESSION NUMBER(S): [id number]; [id number] ORDERING CLINICIAN: Elbert Rosario TECHNIQUE: Multiple multiplanar static otero scale, color and spectral waveform sonographic images of the pelvis were obtained. Transabdominal and endovaginal ultrasound was performed. FINDINGS: UTERUS: The uterus is grossly unremarkable in appearance. The uterus measures at 6.6 cm in length and 2.6 x 4.5 cm in AP and transverse diameters. ENDOMETRIUM: The endometrium measures a thickness of 5 mm, which is at the upper limits of normal for a postmenopausal patient. RIGHT ADNEXA: The right ovary measures at 3.2 x 2.2 x 2.3 cm. A cyst is seen within the right ovary, measuring at up to 2.8 x 1.5 x 1.8 cm in diameter. Normal-appearing color Doppler flow is seen in the right ovary. No right adnexal mass is identified. LEFT ADNEXA: The left ovary was not visualized CUL DE SAC: No free fluid is identified. IMPRESSION: 1. Nonvisualization of the left ovary. Exam Date/Time: 02/12/2019 13:52 EDT Report 2. Cyst in the right ovary, likely physiologic in nature. FINAL REPORT Dictated: 02/13/2019 1:23 pm Anthony Negron MD Signed (Electronic Signature): 02/13/2019 1:23 pm Signed by: Anthony Negron MD Technologist: [facility] US Transvaginal Non-OBon US Transvaginal Non-OB Exam Date/Time: 02/12/2019 13:52 EDT Reason for Exam: SCREENING HX OF OVARIAN CA;Other (please specify) Report STUDY: US Pelvis Non-OB Complete; US Transvaginal Non-OB; 02/12/2019 1:52 pm INDICATION: Family history ovarian cancer COMPARISON: None. ACCESSION NUMBER(S): [id number]; [id number] ORDERING CLINICIAN: Elbert Rosario TECHNIQUE: Multiple multiplanar static otero scale, color and spectral waveform sonographic images of the pelvis were obtained. Transabdominal and endovaginal ultrasound was performed. FINDINGS: UTERUS: The uterus is grossly unremarkable in appearance. The uterus measures at 6.6 cm in length and 2.6 x 4.5 cm in AP and transverse diameters. ENDOMETRIUM: The endometrium measures a thickness of 5 mm, which is at the upper limits of normal for a postmenopausal patient. RIGHT ADNEXA: The right ovary measures at 3.2 x 2.2 x 2.3 cm. A cyst is seen within the right ovary, measuring at up to 2.8 x 1.5 x 1.8 cm in diameter. Normal-appearing color Doppler flow is seen in the right ovary. No right adnexal mass is identified. LEFT ADNEXA: The left ovary was not visualized CUL DE SAC: No free fluid is identified. IMPRESSION: 1. Nonvisualization of the left ovary. Exam Date/Time: 02/12/2019 13:52 EDT Report 2. Cyst in the right ovary, likely physiologic in nature. FINAL REPORT Dictated: 02/13/2019 1:23 pm Anthony Negron MD Signed (Electronic Signature): 02/13/2019 1:23 pm Signed by: Anthony Negron MD Technologist: [facility] IGP W/hpv Rfx [id number] [id number] Diagnosis: See Ref Lab Report [facility] Comment on above: Order Comment: Thin Prep- Menopause Performed By: #### 1 [id number] #### [place] [address] [facility] 02-06-2019 [id number] Date of Procedure: 02/06/2019 Pathologist: KAMILA MCCARTHY Date Reported: 02/11/2019 Date Received: 02/09/2019 Submitting Physician: ELBERT ROSARIO MD FINAL CYTOLOGICAL INTERPRETATION A. THINPREP PAP Cervical / Endocervical Reflex - Ascus only: Specimen adequacy: SATISFACTORY FOR EVALUATION. Quality Indicator: Endocervical/transformati on zone component is present. General Categorization: NEGATIVE FOR INTRAEPITHELIAL LESION OR MALIGNANCY. Electronically Signed Out By [facility], Cytology//MXG By the signature on this report, the individual or group listed as making the Final Interpretation/Diagnosis certifies that they have reviewed this case. Educational Note: Cervical cytology is a screening [...] Clinical History Date of Last Menstrual Period: {Not Entered} Menstrual History: Post-menopausal Other Clinical Conditions: Reflex HPV Testing Ordered: Ascus and Above Bloody Prep - Reprocessed with addition of Glacial Acetic Acid Z12.4 Source of Specimen A: THINPREP PAP Cervical / Endocervical Reflex - Ascus only Normal [facility] XR Foot 2 Views Lefton 02-22 XR Foot 2 Views Left Exam Date/Time: 02/21/2018 15:58 EDT Reason for Exam: Post Op Report STUDY: XR Foot 2 Views Left; 02/21/2018 3:58 pm INDICATION: Post Op. COMPARISON: None. ACCESSION NUMBER(S): [id number] ORDERING CLINICIAN: Dina Prescott FINDINGS: Overlying splint material obscures fine osseous detail. Status post arthrodesis of the 1st MTP joint with dorsal plate and screws. There is a pin transfixing the 2nd digit. No acute fracture or malalignment. There is a small plantar calcaneal spur. IMPRESSION: Postoperative changes as above FINAL REPORT Dictated: 02/22/2018 8:58 am Brandan Jerome MD Signed (Electronic Signature): 02/22/2018 8:58 am Signed by: Brandan Jerome MD Technologist: GABRIEL Normal [facility] Pathology ([facility])on 11-12-2017 Pathology ([facility]) FINAL GYNECOLOGIC CYTOLOGY [id number] ADEQUACYSatisfactory for Evaluation. Endocervical cells/transformation zone componentpresent.GENERAL CATEGORIZATIONNegative for Intraepithelial Lesion or MalignancyCLINICAL HISTORYMenopauseSPECIMEN( A) SCREENING CERVICAL/ENDOCERVICAL THIN PREP VIALPerformed at [facility], [address] [place], [place] [address]Screened by: Signed Out by: GABINO FOUNTAIN [employer] Reported: 11/28/2017 Normal [facility] Healthcare Comment on above: Performed By: #### G YN ####[facility] [id number] [place] [address] Vital Signs Date Time Vital Sign Value Performing Clinician Facility 07-20-2024 09:48-0400 Body mass index (BMI) [Ratio] 44.92 kg/m2 Christa Cruz MD Work Phone: [facility] 07-20-2024 09:48-0400 Body weight 104.33 kg Christa Cruz MD Work Phone: [facility] 07-20-2024 09:48-0400 Diastolic blood pressure 60 mm[Hg] Christa Cruz MD Work Phone: [facility] 07-20-2024 09:48-0400 Heart rate 94 /min Christa Cruz MD Work Phone: [facility] 07-20-2024 09:48-0400 SaO2% (BldA) [Mass fraction] 91 % Christa Cruz MD Work Phone: [facility] 07-20-2024 09:48-0400 Systolic blood pressure 130 mm[Hg] Christa Cruz MD Work Phone: [facility] 07-08-2024 10:33-0500 Body height 152.[address] Christa Cruz MD Work Phone: [facility] 07-08-2024 10:33-0500 Body mass index (BMI) [Ratio] 45.5 kg/m2 Dr. Christa Cruz MD Work Phone: [facility] 07-08-2024 10:33-0500 Body temperature 97.6 [degF] Dr. Christa Cruz MD Work Phone: [facility] 07-08-2024 10:33-0500 Body weight 105.[address] Christa Cruz MD Work Phone: [facility] 07-08-2024 10:33-0500 Diastolic blood pressure 80 mm[Hg] Dr. Christa Cruz MD Work Phone: [facility] 07-08-2024 10:33-0500 Heart rate 97 /min Dr. Christa Cruz MD Work Phone: [facility] 07-08-2024 10:33-0500 Respiratory rate 16 /min Dr. Christa Cruz MD Work Phone: [facility] 07-08-2024 10:33-0500 SaO2% (BldA) [Mass fraction] 98 % Dr. Christa Cruz MD Work Phone: [facility] 07-08-2024 10:33-0500 Systolic blood pressure 153 mm[Hg] Dr. Christa Cruz MD Work Phone: [facility] 03-13-2024 13:44-0400 Body height 152.4 cm Elbert Rosario MD Work Phone: [facility] 03-13-2024 13:44-0400 Body mass index (BMI) [Ratio] 45.47 kg/m2 Elbert Rosario MD Work Phone: [facility] 03-13-2024 13:44-0400 Body weight 105.6 kg Elbert Rosario MD Work Phone: [facility] 03-13-2024 13:44-0400 Diastolic blood pressure 62 mm[Hg] Elbert Rosario MD Work Phone: [facility] 03-13-2024 13:44-0400 Systolic blood pressure 122 mm[Hg] Elbert Rosario MD Work Phone: [facility] 01-21-2024 09:56-0400 Body height 152.4 cm Christa Cruz MD Work Phone: [facility] 01-21-2024 09:56-0400 Body mass index (BMI) [Ratio] 44.76 kg/m2 Christa Cruz MD Work Phone: [facility] 01-21-2024 09:56-0400 Body weight 103.96 kg Christa Cruz MD Work Phone: [facility] 01-21-2024 09:56-0400 Diastolic blood pressure 70 mm[Hg] Christa Cruz MD Work Phone: [facility] 01-21-2024 09:56-0400 Heart rate 87 /min Christa Cruz MD Work Phone: [facility] 01-21-2024 09:56-0400 SaO2% (BldA) [Mass fraction] 91 % Christa Cruz MD Work Phone: [facility] 01-21-2024 09:56-0400 Systolic blood pressure 150 mm[Hg] Christa Cruz MD Work Phone: [facility] 10-21-2023 15:48-0400 Body height 152.4 cm Lopez Christian MD Work Phone: [facility] 10-21-2023 15:48-0400 Body mass index (BMI) [Ratio] 44.53 kg/m2 Lopez Christian MD Work Phone: [facility] 10-21-2023 15:48-0400 Body weight 103.42 kg Lopez Christian MD Work Phone: [facility] 10-21-2023 15:48-0400 Diastolic blood pressure 62 mm[Hg] Lopez Christian MD Work Phone: [facility] 10-21-2023 15:48-0400 Heart rate 93 /min Lopez Christian MD Work Phone: [facility] 10-21-2023 15:48-0400 SaO2% (BldA) [Mass fraction] 98 % Lopez Christian MD Work Phone: [facility] 10-21-2023 15:48-0400 Systolic blood pressure 150 mm[Hg] Lopez Christian MD Work Phone: [facility] 10-18-2023 19:16-0400 Diastolic blood pressure 60 mm[Hg] Earnest Israel DO Work Phone: [facility] 10-18-2023 19:16-0400 Heart rate 80 /min Earnest Israel DO Work Phone: [facility] 10-18-2023 19:16-0400 Respiratory rate 18 /min Earnest Israel DO Work Phone: [facility] 10-18-2023 19:16-0400 SaO2% (BldA) [Mass fraction] 95 % Earnest Israel DO Work Phone: [facility] 10-18-2023 19:16-0400 Systolic blood pressure 140 mm[Hg] Earnest Israel DO Work Phone: [facility] 10-18-2023 17:58-0400 Body height 152.4 cm Earnest Israel DO Work Phone: [facility] 10-18-2023 17:58-0400 Body mass index (BMI) [Ratio] 43.94 kg/m2 Earnest Israel DO Work Phone: [facility] 10-18-2023 17:58-0400 Body temperature 97.81 [degF] Earnest Israel DO Work Phone: [facility] 10-18-2023 17:58-0400 Body weight 102.06 kg Earnest Israel DO Work Phone: [facility] 01-02-2023 09:54-0400 Body height 152.4 cm Christa Cruz MD Work Phone: [facility] 01-02-2023 09:54-0400 Body mass index (BMI) [Ratio] 42.93 kg/m2 Christa Cruz MD Work Phone: [facility] 01-02-2023 09:54-0400 Body weight 99.7 kg Christa Cruz MD Work Phone: [facility] 01-02-2023 09:54-0400 Diastolic blood pressure 70 mm[Hg] Christa Cruz MD Work Phone: [facility] 01-02-2023 09:54-0400 Heart rate 77 /min Christa Cruz MD Work Phone: [facility] 01-02-2023 09:54-0400 SaO2% (BldA) [Mass fraction] 95 % Christa Cruz MD Work Phone: [facility] 01-02-2023 09:54-0400 Systolic blood pressure 148 mm[Hg] Christa Cruz MD Work Phone: [facility] 07-05-2022 09:49-0500 Body height 152.4 cm Christa Cruz Work Phone: [facility] Work Phone: 07-05-2022 09:49-0500 Body mass index (BMI) [Ratio] 42.58 kg/m2 Christa Cruz Work Phone: [facility] Work Phone: 07-05-2022 09:49-0500 Body surface area Derived from formula 1.94 m2 Christa Cruz Work Phone: [facility] Work Phone: 07-05-2022 09:49-0500 Body weight 98.88 kg Christa Cruz Work Phone: [facility] Work Phone: 07-05-2022 09:49-0500 Diastolic blood pressure 72 mm[Hg] Chirsta Cruz Work Phone: [facility] Work Phone: 07-05-2022 09:49-0500 Heart rate 78 /min Christa Cruz Work Phone: [facility] Work Phone: 07-05-2022 09:49-0500 SaO2% (BldA) [Mass fraction] 97 % Christa Cruz Work Phone: [facility] Work Phone: 07-05-2022 09:49-0500 Systolic blood pressure 130 mm[Hg] Christa Cruz Work Phone: [facility] Work Phone: 05-25-2022 11:20-0500 Body height 160.02 cm Christa Cruz Work Phone: [facility] Work Phone: 05-25-2022 11:20-0500 Body mass index (BMI) [Ratio] 38.65 kg/m2 Christa Cruz Work Phone: [facility] Work Phone: 05-25-2022 11:20-0500 Body surface area Derived from formula 2.01 m2 Christa Cruz Work Phone: [facility] Work Phone: 05-25-2022 11:20-0500 Body weight 98.97 kg Christa Cruz Work Phone: [facility] Work Phone: 05-25-2022 11:20-0500 Diastolic blood pressure 72 mm[Hg] Christa Cruz Work Phone: [facility] Work Phone: 05-25-2022 11:20-0500 Heart rate 84 /min Christa Cruz Work Phone: [facility] Work Phone: 05-25-2022 11:20-0500 SaO2% (BldA) [Mass fraction] 98 % Christa Cruz Work Phone: [facility] Work Phone: 05-25-2022 11:20-0500 Systolic blood pressure 136 mm[Hg] Christa Cruz Work Phone: [facility] Work Phone: 03-12-2022 10:33-0400 Body height 152.4 cm Christa Izquierdocel Work Phone: [id number] Work Phone: 03-12-2022 10:33-0400 Body mass index (BMI) [Ratio] 42.63 kg/m2 Christa Izquierdocel Work Phone: [id number] [address] Work Phone: 03-12-2022 10:33-0400 Body surface area Derived from formula 1.94 m2 Christa D Stencel Work Phone: [id number] [address] Work Phone: 03-12-2022 10:33-0400 Body weight 99 kg Christa D Stencel Work Phone: [facility] [address] Work Phone: 03-12-2022 10:33-0400 Diastolic blood pressure 70 mm[Hg] Christa D Stencel Work Phone: [id number]Pwgvmpib[facility] [address] Work Phone: 03-12-2022 10:33-0400 Systolic blood pressure 136 mm[Hg] Christa D Stencel Work Phone: [facility] [address] Work Phone: 01-02-2022 09:46-0400 Body height 152.4 cm Christa D Stencel Work Phone: [facility] Work Phone: 01-02-2022 09:46-0400 Body mass index (BMI) [Ratio] 42.28 kg/m2 Christa D Stencel Work Phone: [facility] Work Phone: 01-02-2022 09:46-0400 Body surface area Derived from formula 1.93 m2 Christa D Stencel Work Phone: [facility] Work Phone: 01-02-2022 09:46-0400 Body weight 98.2 kg Christa D Stencel Work Phone: [facility] Work Phone: 01-02-2022 09:46-0400 Diastolic blood pressure 72 mm[Hg] Christa D Stencel Work Phone: [facility] Work Phone: 01-02-2022 09:46-0400 Heart rate 78 /min Christa Cruz Work Phone: [facility] Work Phone: 01-02-2022 09:46-0400 SaO2% (BldA) [Mass fraction] 98 % Christa Cruz Work Phone: [facility] Work Phone: 01-02-2022 09:46-0400 Systolic blood pressure 124 mm[Hg] Christa Cruz Work Phone: [facility] Work Phone: 06-20-2021 11:01-0500 Body height 152.4 cm Christa Crzu Work Phone: [facility] Work Phone: 06-20-2021 11:01-0500 Body mass index (BMI) [Ratio] 42.2 kg/m2 Christa Cruz Work Phone: [facility] Work Phone: 06-20-2021 11:01-0500 Body surface area Derived from formula 1.93 m2 Christa Cruz Work Phone: [facility] Work Phone: 06-20-2021 11:01-0500 Body temperature 97.3 [degF] Christa Cruz Work Phone: [facility] Work Phone: 06-20-2021 11:01-0500 Body weight 98 kg Christa Cruz Work Phone: [facility] Work Phone: 06-20-2021 11:01-0500 Diastolic blood pressure 64 mm[Hg] Christa Cruz Work Phone: [facility] Work Phone: 02-08-2022 11:01-0500 Heart rate 76 /min Christa Cruz Work Phone: [facility] Work Phone: 06-20-2021 11:01-0500 SaO2% (BldA) [Mass fraction] 96 % Christa Cruz Work Phone: -[employer] [facility] Work Phone: 06-20-2021 11:01-0500 Systolic blood pressure 122 mm[Hg] Christa Izquierdocel Work Phone: [facility] Work Phone: 03-08-2021 13:25-0400 Body height 152.4 cm Christa Izquierdocel Work Phone: [place] [address] [employer] Work Phone: 03-08-2021 13:25-0400 Body mass index (BMI) [Ratio] 42.93 kg/m2 Christa Izquierdocel Work Phone: [place] [address] [address] Work Phone: 03-08-2021 13:25-0400 Body surface area Derived from formula 1.94 m2 Christa Izquierdocel Work Phone: [place] [address] [address] Work Phone: 03-08-2021 13:25-0400 Body temperature 96.9 [degF] Christa Izquierdocel Work Phone: [place] [address] [address] Work Phone: 03-08-2021 13:25-0400 Body weight 99.7 kg Christa Izquierdocel Work Phone: [place] [address] [address] Work Phone: 03-08-2021 13:25-0400 Diastolic blood pressure 70 mm[Hg] Christa Izquierdocel Work Phone: [place] [address] [address] Work Phone: 03-08-2021 13:25-0400 Systolic blood pressure 132 mm[Hg] Christa Cruz Work Phone: [address] Work Phone: 12-28-2020 10:06-0400 Body height 152.4 cm Christa Cruz Work Phone: [facility] Work Phone: 12-28-2020 10:06-0400 Body mass index (BMI) [Ratio] 42.67 kg/m2 Christa Cruz Work Phone: [facility] Work Phone: 12-28-2020 10:06-0400 Body surface area Derived from formula 1.94 m2 Christa Cruz Work Phone: [facility] Work Phone: 12-28-2020 10:06-0400 Body temperature 96.6 [degF] Christa Cruz Work Phone: [facility] Work Phone: 12-28-2020 10:06-0400 Body weight 99.11 kg Christa Cruz Work Phone: [facility] Work Phone: 12-28-2020 10:06-0400 Diastolic blood pressure 70 mm[Hg] Christa Cruz Work Phone: [facility] Work Phone: 12-28-2020 10:06-0400 Heart rate 82 /min Christa Cruz Work Phone: [facility] Work Phone: 12-28-2020 10:06-0400 SaO2% (BldA) [Mass fraction] 96 % Christa Cruz Work Phone: [facility] Work Phone: 12-28-2020 10:06-0400 Systolic blood pressure 124 mm[Hg] Christa Cruz Work Phone: [facility] Work Phone: 12-12-2020 10:51-0400 Body height 152.4 cm Christa Cruz Work Phone: [facility] Work Phone: 12-12-2020 10:51-0400 Body mass index (BMI) [Ratio] 42.87 kg/m2 Christa Cruz Work Phone: [facility] Work Phone: 12-12-2020 10:51-0400 Body surface area Derived from formula 1.94 m2 Christa Cruz Work Phone: [facility] Work Phone: 12-12-2020 10:51-0400 Body temperature 97.1 [degF] Christa Cruz Work Phone: [facility] Work Phone: 12-12-2020 10:51-0400 Body weight 99.57 kg Christa Cruz Work Phone: [facility] Work Phone: 12-12-2020 10:51-0400 Diastolic blood pressure 64 mm[Hg] Christa Cruz Work Phone: [facility] Work Phone: 12-12-2020 10:51-0400 Heart rate 81 /min Christa Cruz Work Phone: [facility] Work Phone: 12-12-2020 10:51-0400 SaO2% (BldA) [Mass fraction] 97 % Christa Cruz Work Phone: [facility] Work Phone: 12-12-2020 10:51-0400 Systolic blood pressure 122 mm[Hg] Christa Cruz Work Phone: [facility] Work Phone: 06-23-2020 11:31-0500 BMI (Body Mass Index) 43.55 kg/m2 Christa Cruz [facility] Work Phone: 06-23-2020 11:31-0500 Body Temperature 97.5 [degF] Christa [facility] Work Phone: 06-23-2020 11:31-0500 Body weight 101.16 kg Christa Cruz [facility] Work Phone: 06-23-2020 11:31-0500 BP Diastolic 82 mm[Hg] Christa [facility] Work Phone: 06-23-2020 11:31-0500 BP Systolic 128 mm[Hg] Christa [facility] Work Phone: 06-23-2020 11:31-0500 BSA (Body Surface Area) 1.95 m2 Christa Cruz [facility] Work Phone: 06-23-2020 11:31-0500 Height 152.4 cm Christa Cruz [facility] Work Phone: 06-23-2020 11:31-0500 Pulse (Heart Rate) 85 /min Christa Izquierdoflorencia [facility] Work Phone: 06-23-2020 11:31-0500 Pulse Oximetry 95 % Christa Cruz [facility] Work Phone: 07-28-2019 10:23-0400 BMI (Body Mass Index) 42.38 kg/m2 Christa Cruz [facility] Work Phone: 07-28-2019 10:23-0400 Body weight 98.43 kg Christa Cruz [facility] Work Phone: 07-28-2019 10:23-0400 BP Diastolic 76 mm[Hg] Christ[facility] Work Phone: 07-28-2019 10:23-0400 BP Systolic 144 mm[Hg] Christa Cruz [facility] Work Phone: 07-28-2019 10:23-0400 BSA (Body Surface Area) 1.93 m2 Christa [facility] Work Phone: 07-28-2019 10:23-0400 Height 152.4 cm Christa Cruz [facility] Work Phone: 07-28-2019 10:23-0400 Pulse (Heart Rate) 96 /min Christa Cruz [facility] Work Phone: 07-28-2019 10:23-0400 Pulse Oximetry 94 % Christa [facility] Work Phone: Encounters Encounter Date Encounter Type Care Provider Facility Start: 07-20-2024 End: 07-20-2024 Assay of hemosiderin, quant Christa Cruz MD Work Phone: [facility] Work Phone: Start: 07-20-2024 End: 07-20-2024 Patient encounter procedure Christa Cruz MD Work Phone: [facility] Comment on above: Routine general medi ramya examination at health care facility (Primary Dx); Primary hypertension; Mixed hyperlipidemia; IGT (impaired glucose tolerance); Elevated serum globulin level; Type 2 diabetes mellitus without complication, without long-term current use of insulin (Multi) Start: 07-20-2024 End: 07-20-2024 ambulatory [facility] Start: 07-20-2024 End: 07-20-2024 Encounter for general adult medical examination without abnormal findings [facility] Start: 07-16-2024 End: 07-16-[address] Christa Cruz MD Work Phone: [facility] Work Phone: Start: 07-16-2024 End: 07-16-[address] Christa Cruz MD -Laboratory Work Phone: Start: 07-16-2024 End: 07-16-2024 ambulatory Christa Cruz Facility:[facility] Start: 07-08-2024 End: 07-08-2024 Emergency department patient visit Christa Cruz Facility:[facility] Start: 04-29-2024 End: 04-29-[address] Christa Cruz MD -[facility] Work Phone: Start: 04-29-2024 End: 04-29-2024 ambulatory Christa Cruz Facility:[facility] Start: 04-27-2024 End: 04-27-[address] Christa Cruz MD -Outpatient Breast Imaging Work Phone: Start: 04-27-2024 End: 04-27-2024 ambulatory Christa Cruz Facility:[facility] Start: 03-13-2024 End: 03-13-2024 Manual pelvic examination Elbert Rosario MD Work Phone: [facility] Start: 03-13-2024 End: 03-13-2024 Patient encounter procedure Elbert Rosario MD Work Phone: [facility] Comment on above: Encounter for gyneco logical examination without abnormal finding; Encounter for screening for cervical cancer Start: 03-13-2024 End: 03-13-2024 Patient encounter status Elbert Rosario MD Work Phone: [facility] Start: 03-13-2024 End: 03-13-2024 ambulatory ELBERT ROSARIO [facility] Ambulatory Start: 01-21-2024 End: 01-21-2024 Office outpatient visit 25 minutes Christa Cruz MD Work Phone: [facility] Comment on above: Primary hypertension (Primary Dx); Chronic low back pain with right-sided sciatica, unspecified back pain laterality; Mixed hyperlipidemia; Seasonal allergic rhinitis due to pollen; IGT (impaired glucose tolerance); Breast cancer screening by mammogram; Elevated serum globulin level Start: 01-21-2024 End: 01-21-2024 ambulatory CHRISTA CRUZ [facility] Ambulatory Start: 01-17-2024 End: 01-17-2024 ambulatory Christa Cruz Facility:[facility] Start: 11-20-2023 End: 11-20-2023 ambulatory Beau ARREOLA Facility:[facility] Start: 11-01-2023 ambulatory Gustavo Landis Facility :[facility] Start: 11-01-2023 End: 11-01-2023 ambulatory Christa Cruz Facility:[facility] Start: 10-21-2023 End: 10-21-2023 ambulatory LPOEZ CHRISTIAN [facility] Ambulatory Start: 10-21-2023 End: 10-21-2023 Office outpatient visit 25 minutes Lopez Christian MD Work Phone: [facility] Comment on above: Right calf pain (Mere jolene Dx); Other specified injury of unspecified blood vessel at lower leg level, right leg, initial encounter Start: 10-18-2023 End: 10-18-2023 Emergency department patient visit Earnest Israel DO Work Phone: [facility] Comment on above: Leg pain, anterior, right (Primary Dx) Start: 04-24-2023 End: 04-24-2023 ambulatory [facility] Work Phone: Start: 04-24-2023 End: 04-24-2023 Patient encounter procedure [facility]-Outpatient Breast Imaging Work Phone: Start: 01-02-2023 End: 01-02-2023 Office outpatient visit 25 minutes Christa Cruz MD Work Phone: [facility] Comment on above: Primary hypertension (Primary Dx); Mixed hyperlipidemia; Seasonal allergic rhinitis due to pollen; Chronic low back pain with right-sided sciatica, unspecified back pain laterality; IGT (impaired glucose tolerance); Encounter for screening mammogram for malignant neoplasm of breast Start: 08-21-2022 End: 08-21-2022 ambulatory [facility] Work Phone: Start: 08-21-2022 End: 08-21-2022 Patient encounter procedure [facility]-Laboratory Start: 07-05-2022 Adv care pln/ no alt dcsn mkr docd or refusal Christa Cruz Work Phone: [facility] Work Phone: Start: 07-05-[address] Christa Hay Facility:[id number] Start: 05-29-2022 ambulatory [place] Facility :[id number] Start: 05-25-2022 Office outpatient vi sit 15 minutes Christa Cruz Work Phone: [facility] Work Phone: Start: 05-25-[address] Mukesh Martinez Facility:[id number] Start: 04-30-2022 ambulatory Elbert Rosario Facility:[id number] Start: 04-11-2022 End: 04-11-2022 ambulatory [facility] Work Phone: Start: 04-11-2022 End: 04-11-2022 Patient encounter procedure [facility]-Outpatient Breast Imaging Start: 03-27-2022 End: 03-27-2022 ambulatory [facility] Work Phone: Start: 03-27-2022 End: 03-27-2022 Patient encounter procedure [facility] Start: 03-19-2022 Chart Update Christa don Work Phone: [address] Work Phone: Start: 03-13-2022 AUDIT Christa don Work Phone: [place] [address] Work Phone: Start: 03-12-[address] Christa Hay Facility:[facility] Start: 01-02-2022 Office outpatient vi sit 25 minutes Christa Cruz Work Phone: [facility] Work Phone: Start: 01-02-[address] Christa Hay Facility:[id number] Start: 12-23-2021 End: 12-23-2021 Patient encounter procedure [facility]-Laboratory Start: 08-07-2021 AUDIT Christa don Work Phone: [facility] Work Phone: Start: 08-07-2021 End: 08-07-2021 Patient encounter procedure [facility]-MRI - [facility] Start: 07-11-2021 AUDIT Christa Hyde Felecia florencia Work Phone: [facility] Work Phone: Start: 06-21-2021 End: 06-21-2021 Patient encounter procedure [facility]-Radiology, [facility] Start: 06-20-2021 Patient encounter procedure Christa Izquierdocel Work Phone: [facility] Work Phone: Start: 03-08-2021 Office outpatient vi sit 15 minutes Christa Izquierdocel Work Phone: [address] Work Phone: Start: 02-01-2021 COLON, Provider: Declan Loaiza, Status: Pen, Time: 11:30 AM Christa Izquierdocel Work Phone: [facility] Work Phone: Start: 01-31-2021 Chart Update Christa Barrett Felecia florencia Work Phone: [facility] Work Phone: Start: 12-28-2020 Office outpatient vi sit 15 minutes Christa Izquierdocel Work Phone: [facility] Work Phone: Start: 12-12-2020 Office outpatient vi sit 15 minutes Christa Hyde Stencel Work Phone: [facility] Work Phone: Start: 04-22-2020 Patient encounter procedure Christa Cruz [facility] Work Phone: Start: 04-13-2020 Patient encounter procedure Christa Cruz [facility] Work Phone: Start: 02-23-2020 Patient encounter procedure Christa Cruz [facility] Work Phone: Start: 01-28-2020 Patient encounter procedure Christa Cruz [facility] Work Phone: Start: 07-28-2019 Patient encounter procedure Christa Cruz [facility] Work Phone: Start: 10-14-2017 Ambulatory [facility] Ambulatory Cancer cervix - scre ening done Christa Cruz Work Phone: [facility] Work Phone: Comment on above: 02/23/2020: Negative 11/12/2017: Negative; Encounter for gynecological examination (general) (routine) without abnormal findings Christa Cruz Work Phone: [address] Work Phone: Comment on above: 02/23/2020: Negative 11/12/2017: Negative; 03/12/2022; COTEST N EG02/23/2020: Diegujgz04/03/2018: Negative; Patient encounter procedure Christa Cruz Work Phone: [facility] [employer] [facility] Work Phone: Preoperative state Christa Hammodn Work Phone: [employer] [facility] Work Phone: Procedures Date Procedure Procedure Detail Performing Clinician Start: 07-08-2024 Beta-hemolytic Streptococcus culture Dr. Christa Cruz MD Work Phone: Start: 07-08-2024 Streptococcus pyogenes rRNA assay Dr. Yuilet Cruz MD Work Phone: Start: 05-18-2024 Mammography Christa Cruz MD Work Phone: Start: 04-29-[address] Christa Cruz MD Work Phone: Start: 04-27-[address] Christa Cruz MD Work Phone: Start: 10-18-2023 Radiologic examination tibia & fibula 2 views Earnest Guerrero Israel DO Work Phone: Start: 07-03-2023 Lipid 1996 panel - Serum or Plasma Smitha johnson Israel DO Work Phone: Start: 04-24-2023 End: 04-24-2023 Mammography Start: 05-29-2022 Nonphysician telephone assessment 5-10 min Christa Cruz Work Phone: Start: 04-30-2022 Nonphysician telephone assessment 21-30 min Christa Cruz Work Phone: Start: 04-11-2022 End: 04-11-2022 Screening mammography Start: 03-27-2022 Pelvic echography Start: 03-27-2022 Transvaginal echography Start: 08-07-2021 MRI of lumbar spine Start: 06-21-2021 X-ray of lumbosacral spine Start: 02-01-2021 Colonoscopy Christa Cruz MD Work Phone: Start: 07-28-2019 CBC W Auto Differential panel - Blood Christa Cruz Start: 07-28-2019 Comprehensive metabolic 2000 panel Graeme el Stencel Start: 07-28-2019 Lipid panel Christa Cruz Start: 03-30-2016 Colonoscopy Christa Cruz Work Phone: Appendectomy Christa Cruz Arthroplasty Christa Hyde Stenc el Work Phone: Comment on above: RIGHT; section Christa Juan ncel Cholecystectomy Christa Izquierdo florencia End: 03-30-2016 Colonoscopy Christa Cruz Endometrial biopsy Christa Yanez tenflorencia Comment on above: 04/13/2020- Thickened endometrium; Esophagogastroduodenoscopy James moore Stenflorencia Excision of bunion Christa Yanez tencel Excision of ganglion cyst Mi chael Barrett Stencel Work Phone: Hysterectomy Christa Cruz Hysteroscopy Christa Cruz Comment on above: 04-29-2014; Ligation of fallopian tube James moore Stenflorencia Operation on fracture Michae l Stencel Removal of ectopic fetus Cody hajose l Stencel Repair of umbilical hernia James moore Stenflorencia Plan of Treatment Date Care Activity Detail Author Start: 02-01-2031 Screening for malignant neoplasm of colon [facility] Start: 07-03-2028 Lipid panel Lipid Panel [facility] Start: 01-19-2027 Diabetes mellitus screening Diabetes Screening [facility] Start: 07-03-2026 Diabetes mellitus screening Diabetes Screening [facility] Start: 08-21-2025 Diabetes mellitus screening Diabetes Screening [facility] Start: 07-21-2025 Medicare Annual Wellness Visit Medicare Annual Wellness Visit (AWV) [facility] Start: 05-18-2025 Screening for malignant neoplasm of breast Mammogram [facility] Start: 01-19-2025 Hemoglobin A1c measurement Diabetes: Hemoglobin A1C [facility] Start: 10-20-2024 End: 10-20-2024 Patient encounter procedure 10/20/2024 9:40 AM EDT Office Visit [place] [address] [phone] Christa Cruz MD [address] [id number] [facility] Start: 10-16-2024 Hemoglobin A1c measurement Diabetes: Hemoglobin A1C [facility] Start: 07-20-2024 End: 07-20-2025 Hemoglobin A1c/Hemoglobin.total in Blood Hemoglobin A1C Lab Routine Type 2 diabetes mellitus without complication, without long-term current use of insulin (Multi) Expected: 07/20/2024 (Approximate), Expires: 07/20/2025 [facility] Service Area Work Phone: Comment on above: Expected: 07/20/2024 (Approximate), Expires: 07/20/2025 Start: 07-17-2024 End: 07-17-2024 Patient encounter procedure 07/17/2024 9:20 AM EST Office Visit [place] [address] [phone] Christa Curz MD [address] [id number] [facility] Start: 07-09-2024 Medicare Annual Wellness Visit Medicare Annual Wellness Visit (AWV) [facility] Start: 07-08-2024 [facility] Start: 07-03-2024 Hemoglobin A1c measurement Diabetes: Hemoglobin A1C [facility] Start: 07-03-2024 Lipid panel Lipid Panel [facility] Start: 04-24-2024 Screening for malignant neoplasm of breast Mammogram [facility] Start: 03-13-2024 End: 03-13-2025 Cytology Cervical or vaginal smear or scraping study [facility] Area Work Phone: Comment on above: Expected: 03/13/2024 (Approximate), Expires: 03/13/2025 Start: 03-13-2024 End: 03-13-2024 Patient encounter procedure 03/13/2024 1:45 PM EDT Office Visit [facility] [address] [place] [address] Elbert Rosario MD [address] [facility], [address] [place] [address] [facility] Start: 01-21-2024 End: 01-20-2025 CBC panel - Blood by Automated count CBC Lab Routine Primary hypertension Mixed hyperlipidemia IGT (impaired glucose tolerance) Expected: 01/21/2024 (Approximate), Expires: 01/20/2025 [facility] Work Phone: Comment on above: Expected: 01/21/2024 (Approximate), Expires: 01/20/2025 Start: 01-21-2024 End: 01-20-2025 Comprehensive metabolic 2000 panel - Serum or Plasma Comprehensive Metabolic Panel Lab Routine Primary hypertension Mixed hyperlipidemia IGT (impaired glucose tolerance) Expected: 01/21/2024 (Approximate), Expires: 01/20/2025 [facility] Work Phone: Comment on above: Expected: 01/21/2024 (Approximate), Expires: 01/20/2025 Start: 01-21-2024 End: 01-20-2025 Hemoglobin A1c/Hemoglobin.total in Blood Hemoglobin A1C Lab Routine IGT (impaired glucose tolerance) Expected: 01/21/2024 (Approximate), Expires: 01/20/2025 [facility] Work Phone: Comment on above: Expected: 01/21/2024 (Approximate), Expires: 01/20/2025 Start: 01-21-2024 End: 01-20-2025 Lipid 1996 panel - Serum or Plasma Lipid Panel Lab Routine Mixed hyperlipidemia Expected: 01/21/2024 (Approximate), Expires: 01/20/2025 [facility] Work Phone: Comment on above: Expected: 01/21/2024 (Approximate), Expires: 01/20/2025 Start: 01-21-2024 End: 01-21-2024 Patient encounter procedure 01/21/2024 10:00 AM EDT Office Visit [facility] [address] [place] [address] Christa Cruz MD [address] [place], [place] [id number] [facility] Start: 01-12-2024 COVID-19 Vaccine ( season) COVID-19 Vaccine ( season) [facility] Start: 01-12-2024 COVID-19 Vaccine ( season) COVID-19 Vaccine ( season) [facility] Start: 01-12-2024 Influenza vaccination Influenza Vacc ine (#1) [facility] Start: 10-21-2023 End: 10-20-2025 US.doppler Lower extremity artery - right Vascular US lower extremity arterial duplex right Vascular Ultrasound Routine Right calf pain Other specified injury of unspecified blood vessel at lower leg level, right leg, initial encounter Expected: 10/21/2023 (Approximate), Expires: 10/20/2025 [facility] Service Area Work Phone: Comment on above: Expected: 10/21/2023 (Approximate), Expires: 10/20/2025 Start: 07-08-2023 End: 07-08-2023 Patient encounter procedure 07/08/2023 2:00 PM EST Office Visit [facility] [address] [place] [address] Christa Cruz MD [address] [place] [address] [facility] Start: 07-06-2023 Medicare Annual Wellness Visit Medicare Annual Wellness Visit (AWV) [facility] Start: 07-05-2023 COVID-19 Vaccine () COVID-19 Vaccine () [facility] Start: 04-11-2023 Screening for malignant neoplasm of breast Mammogram [facility] Start: 01-11-2023 Influenza vaccination Influenza Vacc ine (#1) [facility] Start: 01-02-2023 End: 01-03-2024 CBC panel - Blood by Automated count CBC Lab Routine Mixed hyperlipidemia Expected: 01/02/2023 (Approximate), Expires: 01/03/2024 [facility] Service Area Work Phone: Comment on above: Expected: 01/02/2023 (Approximate), Expires: 01/03/2024 Start: 01-02-2023 End: 01-03-2024 Comprehensive metabolic 2000 panel - Serum or Plasma Comprehensive Metabolic Panel Lab Routine Mixed hyperlipidemia Expected: 01/02/2023 (Approximate), Expires: 01/03/2024 [facility] Work Phone: Comment on above: Expected: 01/02/2023 (Approximate), Expires: 01/03/2024 Start: 01-02-2023 End: 03-04-2024 DBT Breast - bilateral BI mammo bilateral screening tomosynthesis Imaging Routine Encounter for screening mammogram for malignant neoplasm of breast Expected: 01/02/2023, Expires: 03/04/2024 [facility] Work Phone: Comment on above: Expected: 01/02/2023 , Expires: 03/04/2024 Start: 01-02-2023 End: 01-03-2024 Hemoglobin A1c/Hemoglobin.total in Blood Hemoglobin A1C Lab Routine IGT (impaired glucose tolerance) Expected: 01/02/2023 (Approximate), Expires: 01/03/2024 [facility] Work Phone: Comment on above: Expected: 01/02/2023 (Approximate), Expires: 01/03/2024 Start: 01-02-2023 End: 01-03-2024 Lipid 1996 panel - Serum or Plasma Lipid Panel Lab Routine Mixed hyperlipidemia Expected: 01/02/2023 (Approximate), Expires: 01/03/2024 [facility] Work Phone: Comment on above: Expected: 01/02/2023 (Approximate), Expires: 01/03/2024 Start: 07-05-2022 EPV, Provider: Christa Cruz, Status: Pen, Time: 9:40 AM EPV, Provider: Christa Cruz, Status: Pen, Time: 9:40 AM [facility] Work Phone: Start: 06-20-2022 COVID-19 Vaccine (3 - Booster for Nini series) COVID-19 Vaccine (3 - Booster for Nini series) [facility] Start: 05-29-2022 VIRFUVADIEL, Provider : Yenni Israel, Status: Pen, Time: 1:30 PM VIRFUVADIEL, Provider: Yenni Israel, Status: Pen, Time: 1:30 PM [facility] Work Phone: Start: 03-12-2022 Patient encounter procedure ANNUAL, Provider: Elbert Rosario, Status: Pen, Time: 10:[address] Work Phone: Start: 12-25-2021 EPV, Provider: Christa Cruz, Status: Pen, Time: 9:40 AM EPV, Provider: Christa Cruz, Status: Pen, Time: 9:40 AM [facility] Work Phone: Start: 12-20-2021 EPV, Provider: Christa Cruz, Status: Pen, Time: 11:40 AM EPV, Provider: Christa Cruz, Status: Pen, Time: 11:40 AM [facility] Work Phone: Start: 07-26-2021 DTaP/Tdap/Td Vaccine s (2 - Td or Tdap) DTaP/Tdap/Td Vaccines (2 - Td or Tdap) [facility] Start: 07-04-2021 EPV, Provider: Christa Cruz, Status: Pen, Time: 9:20 AM EPV, Provider: Christa Cruz, Status: Pen, Time: 9:20 AM [facility] Work Phone: Start: 02-24-2021 Patient encounter procedure ANNUAL, Provider: Elbert Rosario, Status: Pen, Time: 11:00 AM [facility] Work Phone: Start: 01-20-2021 COLON, Provider: Declan Loaiza, Status: Pen, Time: 9:00 AM COLON, Provider: Declan Loaiza, Status: Pen, Time: 9:00 AM [facility] Work Phone: Start: 12-28-2020 EPV, Provider: Christa Cruz, Status: Pen, Time: 10:00 AM EPV, Provider: Christa Cruz, Status: Pen, Time: 10:00 AM [facility] Work Phone: Start: 2014 RSV High Risk: (Elderly (60+) or Population) (1 - Risk 60-74 years 1-dose series) RSV High Risk: (Elderly (60+) or Population) (1 - Risk 60-74 years 1-dose series) [facility] Start: 2014 RSV patient s and/or patients aged 60+ years (1 - 1-dose 60+ series) RSV patients and/or patients aged 60+ years (1 - 1-dose 60+ series) [facility] Start: 05-09-2012 Zoster Vaccines (2 o f 3) Zoster Vaccines (2 of 3) [facility] Start: 1972 Hepatitis C screening Hepatitis C [facility] Start: 1964 Glaucoma screening Diabetes: R etinopathy Screening [facility] Start: 1954 Lipid panel Lipid Panel [facility] Start: 1954 Screening for malignant neoplasm of colon [facility] Start: 1955 Urine screening for protein Diabetes: Urine Protein Screening [facility] Patient referral Philippe Mcmahan [facility] Work Phone: End: 10-18-2023 Splint Application Splint Application Procedures Routine Once for 1 Occurrences starting 10/18/2023 until 10/18/2023 [facility] Service Area Work Phone: Comment on above: Once for 1 Occurrenc es starting 10/18/2023 until 10/18/2023 -[employer] [facility] Work Phone: NEGATED: Highlighted row has been ruled out! Planned Goals not documented -[employer] [facility] Work Phone: Immunizations Immunization Date Immunization Notes Care Provider Brett bhat 02-27-2023 Influenza, Seasonal, Quadrivalent, Adjuvanted Earnest Israel DO Work Phone: [facility] Work Phone: 02-27-2023 influenza virus vacc ine, unspecified formulation Christa Cruz MD Work Phone: [facility] Work Phone: 04-25-2022 Pfizer COVID-19 Vac Bivalent 30 MCG/0.3ML Intramuscular Suspension Christa Cruz Work Phone: [id number] Work Phone: 03-19-2022 Fluzone High-Dose Quadrivalent 0.7 ML Intramuscular Suspension Prefilled Syringe Christa Cruz Work Phone: [facility] Work Phone: 03-19-2022 influenza virus vacc ine, unspecified formulation Christa Cruz MD Work Phone: [facility] Work Phone: 06-20-2021 pneumococcal polysaccharide vaccine, 23 valent; Translations: [Pneumococcal polysaccharide vaccine, 23 valent] Christa Cruz Work Phone: -Medical [facility] Work Phone: Comment on above: Series: 03-28-2021 3D [employer]-BioNTBiox[employer] COVI D-19 Vacc 30 MCG/0.3ML Intramuscular Suspension Christa Cruz Work Phone: [facility] 03-07-2021 Fluad Quadrivalent 0 .5 ML Intramuscular Prefilled Syringe Christa Barrett Cruz [facility] Work Phone: 07-15-2020 Nini COVID-19 Vac cine 0.5 ML Intramuscular Suspension Christa Hyde Nancy Work Phone: [facility] Work Phone: Comment on above: Series: 03-08-2020 Fluad Quadrivalent 0 .5 ML Intramuscular Prefilled Syringe Christa Cruz Work Phone: [facility] Work Phone: 03-08-2020 influenza, injectabl e, quadrivalent, contains preservative Christa Cruz MD Work Phone: [facility] Work Phone: 03-08-2020 influenza, seasonal, injectable Christa Cruz Work Phone: [facility] [place] Phone: Comment on above: Series: 03-08-2020 influenza, seasonal, injectable Christa Cruz [facility] Work Phone: 03-07-2020 influenza, injectabl e, quadrivalent, contains preservative Christa Cruz MD Work Phone: [facility] Work Phone: 01-28-2020 pneumococcal conjuga te vaccine, 13 valent; Translations: [Prevnar 13 Intramuscular Suspension] Christ[facility] Cruz [facility] Work Phone: Comment on above: Series: 03-27-2019 influenza, seasonal, injectable Christ[facility] Cruz [facility] Work Phone: Comment on above: Series: 03-27-2019 influenza, seasonal, injectable Christa [facility] Work Phone: 03-14-2012 zoster vaccine, live Christa Cruz [facility] Work Phone: Comment on above: Series: 07-27-2011 tetanus toxoid, redu jovany diphtheria toxoid, and acellular pertussis vaccine, adsorbed Christa Cruz MD Work Phone: [facility] Work Phone: 03-01-2009 novel influenza-H1N1 -09, preservative-free, injectable Earnest Israel DO Work Phone: [facility] Work Phone: tetanus toxoid, redu jovany diphtheria toxoid, and acellular pertussis vaccine, adsorbed Christa Cruz Work Phone: [facility] Work Phone: Comment on above: Approx [id number] Ser ies: Payers Date Payer Category Payer Self-pay [id number] 2021 Medicare ANTHEM MEDICARE ANTHEM MEDICARE ADVANTAGE [id number] 2021-Present [address] [place] [address] [id number] 2021 Medicare (Managed Care) [facility] ADVANTAGE [id number] 2021 Medicare [id number] 2015 Unknown [id number] 1954 Unknown [id number] [id number]. 2.356 1954 Unknown [id number] 2.16.840.1.604015.3.579. 2.356 1954 Unknown [id number] 2.16.840.1.033360.3.579. 2.356 1954 Unknown [id number] 2.16.840.1.858396.3.579. 2.356 1954 Unknown [id number] 2.16.840.1.220702.3.579. 2.356 1954 Unknown [id number] 2.16.840.1.801746.3.579. 2.356 1954 Unknown [id number] 2.16.840.1.967615.3.579. 2.356 1954 Unknown [id number] 2.16.840.1.304289.3.579. 2.1243 1954 Unknown [id number] 2.16840.1.959198.3.579. 2.1244 1954 Unknown [id number] 2.16840.1.313690.3.579. 2.1244 1954 Unknown [id number] 2.16840.1.210152.3.579. 2.1244 1954 Unknown [id number] 2.16840.1.933495.3.579. 2.1244 Unknown Unknown [id number] Unknown [id number] Unknown [id number] 2.16.840.1.691849.3.579. 2.462 Unknown [id number] 2.16.840.1.181326.3.579. 2.462 Unknown [id number] 2.16.840.1.758325.3.579. 2.462 Unknown [id number] 2.16.840.1.221474.3.579. 2.462 Unknown [id number] 2.16.840.1.623608.3.579. 2.462 Unknown [id number] 2.16.840.1.070243.3.579. 2.462 Unknown [id number] 2.16.840.1.567108.3.579. 2.462 Unknown [id number] 2.16.840.1.723209.3.579. 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 [facility] Work Phone: Start: 1955 Sex Assigned At Female [facility] Start: 01-02-2023 Tobacco smoking status NHIS Ex-smoker [facility] History of tobacco use Current smoker [facility] Work Phone: History of tobacco use Cigarette Smoker [facility] Work Phone: Start: 01-02-2023 Tobacco use and exposure Smokeless tobacco non-user [facility] Work Phone: Start: 01-02-2023 End: 07-20-2024 Alcohol intake Ex-drinker (finding) [facility] Work Phone: Start: 01-02-2023 End: 07-20-2024 Tobacco use panel [facility] Work Phone: Start: 01-02-2023 Alcohol Comment 1 or 2 a month [facility] Work Phone: Start: 1955 Sex Assigned At Not on file [facility] Work Phone: Start: 10-08-2023 End: 07-20-2024 Exposure to SARS-CoV-2 (event) Not sure [facility] Start: 07-08-2024 Tobacco smoking status NHIS Tobacco smoking consumption unknown (finding) [facility] Start: 07-27-2024 Sex Female (finding) [facility] NEGATED: Highlighted row - - MP[facility] Work Phone: Functional Status Date Assessment Result Facility NEGATED: Highlighted row Functional performance Functional status health issues are not documented Disease [facility] Work Phone: Mental Status Date Assessment Result Facility 07-08-2024 Cognitive function Level Of Cons ciousness Awake;Alert [facility] Work Phone: NEGATED: Highlighted row Cognitive function [Interpretation] Cognitive status health issues are not documented Disease [facility] Work Phone: Clinical Notes 05-13-2020 to 07-20-2024 Assessment & Plan Note - Christa Cruz MD - 07/20/2024 9:40 AM EDTAssessment & Plan Note - Christa Cruz MD - 07/20/2024 9:40 AM EDTMoscar Cruz MD - 07/20/2024 9:40 AM EDT Note Date & Type Note Facility 07-20-2024 Evaluation + Plan note Associated Problem(s): Hypertension Orders: Follow Up In Primary Care Follow Up In Primary Care; Future [facility] Work Phone: 07-20-2024 Evaluation + Plan note Associated Problem(s): Hyperlipidemia Orders: Follow Up In Primary Care [facility] Work Phone: 07-20-2024 History of Presen t illness Narrative Subjective Reason for Visit: Merlene Sow is an 68 y.o. female here for a Medicare Wellness visit. Past Medical, Surgical, and Family History reviewed and updated in chart. Reviewed all medications by prescribing practitioner or clinical pharmacist (such as prescriptions, OTCs, herbal therapies and supplements) and documented in the medical record. HPI Since the last office visit there have been no interval operations, hospitalizations, important illnesses or injuries. In er last month for sore throat. HTN-Takes and tolerates meds without side effects. No alcohol. no tobacco. no exercise. low salt. Reviewed recommendation for 150 minutes of exercise per week including 2 days of weight training if over age 50 Diabetes - A1c 6.8, will start met 500mg/d. Intolerant to statins Hyperlipidemia-intolerant to statins Back pain hip pain daily ibuprofen at 400-800 /d and aleve at hs Patient Care Team: Christa Cruz MD as PCP - General (Family Medicine) Christa Cruz MD as PCP - [employer] Medicare Advantage PCP Review of Systems General-no fatigue weight to within 10 pounds ENT no problems with vision swallowing Cardiac no chest pains palpitations change in exercise tolerance or capacity Pulmonary no cough shortness of breath GI no heartburn or abdominal pain Musculoskeletal no joint pains Objective Vitals: BP 130/60 Pulse 94 Wt 104 kg (230 lb) SpO2 91% BMI 44.92 kg/m Physical Exam General: Alert, No acute [...] intact Psychiatric: Cooperative, Appropriate mood & affect. Assessment & Plan Routine general medical examination at health care facility Orders: 1 Year Follow Up In Primary Care - Wellness Exam; Future Primary hypertension Orders: Follow Up In Primary Care Follow Up In Primary Care; Future Mixed hyperlipidemia Orders: Follow Up In Primary Care IGT (impaired glucose tolerance) Orders: Follow Up In Primary Care Elevated serum globulin level Orders: Follow Up In Primary Care Type 2 diabetes mellitus without complication, without long-term current use of insulin (Multi) Orders: metFORMIN (Glucophage) 500 mg tablet; Take 1 tablet (500 mg) by mouth once daily with breakfast. Follow Up In Primary Care; Future Hemoglobin A1C; Future documented in this encounter [facility] Work Phone: 07-20-2024 Miscellaneous Notes Associated Problem(s): Hypertension Orders: Follow Up In Primary Care Follow Up In Primary Care; Future Associated Problem(s): Hyperlipidemia Orders: Follow Up In Primary Care documented in this encounter [facility] Work Phone: 03-13-2024 History of Presen t illness Narrative Merlene Sow is a 68 y.o. female who is here for a routine exam. PCP = Christa Cruz MD Chief Complaint Patient presents with Gynecologic Exam Pt here for Yrly exam. Pt does do breast exams. Pt's last pap 03/03/22. Pt does not have any concerns at this time Presents for annual exam. She voices no complaints and is doing well. Denies any bowel or bladder problems. Denies any breast problems. Denies any postmenopausal bleeding. OB History No obstetric history on file. Past Medical History: Diagnosis Date Allergic Arthritis Asymptomatic menopausal state History of menopause Encounter for delivery without indication ([facility]) Delivery of by section Encounter for gynecological examination (general) (routine) without abnormal findings Pap test, as part of routine gynecological examination Hypertension Other conditions influencing health status Menstruation Personal history of other medical treatment History of mammogram Unspecified tubal without intrauterine ([facility]) Ectopic , tubal Past Surgical History: Procedure Laterality Date APPENDECTOMY CHOLECYSTECTOMY HERNIA REPAIR OTHER SURGICAL HISTORY 07/21/2019 Colonoscopy OTHER SURGICAL HISTORY 07/21/2019 Tubal ligation OTHER SURGICAL HISTORY 07/21/2019 Metatarsal fracture repair OTHER SURGICAL HISTORY 07/21/2019 Esophagogastroduodenoscopy OTHER SURGICAL HISTORY 07/21/2019 Ectopic removal OTHER SURGICAL HISTORY 07/21/2019 section OTHER SURGICAL HISTORY 07/21/2019 Bunionectomy OTHER SURGICAL HISTORY 07/21/2019 Umbilical hernia repair OTHER SURGICAL HISTORY 04/13/2020 Endometrial biopsy OTHER SURGICAL HISTORY 02/23/2020 Hysteroscopy OTHER SURGICAL HISTORY 12/28/2020 Arthroplasty OTHER SURGICAL HISTORY 12/28/2020 Ganglion cyst excision TUBAL LIGATION WISDOM TOOTH EXTRACTION Past med hx and past surg hx reviewed and notable for: none Review of Systems: Constitutional: No fever or chills Respiratory: No shortness of breath, or cough Cardiovascular: No chest pain or syncope Breasts: No breast pain, no masses, no nipple discharge Gastrointestinal: No nausea, vomiting, or diarrhea, no abdominal pain Genitourinary: No dysuria or frequency Gynecology: Negative except as noted in history of present illness All other: All other systems reviewed and negative for complaint Objective BP 122/62 Ht 1.524 m (5') Wt 106 kg (232 lb 12.8 oz) BMI 45.47 kg/m PHYSICAL EXAMINATION: Overhead Crane Technician present for exam: Mary Ann David ANDRE Hdz Well-developed, well nourished, in no acute distress, alert and oriented x three, is pleasant and cooperative. HEENT: Clear. Pupils equal, round and reactive to light and accommodation. Extraocular muscles are intact. Oral mucosa pink without exudate. NECK: No lymphadenopathy, no thyromegaly. BREASTS: Symmetric, no palpable masses. No nipple discharge or retraction. LUNGS: Clear bilaterally. HEART: Regular rate and rhythm without murmurs. ABDOMEN: Normoactive bowel sounds, soft and nontender, no guarding or rebound tenderness, no CVA tenderness. EXTREMITIES: No clubbing, cyanosis or edema. NEUROLOGIC: Cranial nerves II-XII grossly intact. : Normal external female genitalia, normal vulva, normal vagina. Normal urethral meatus, urethra and bladder. Normal appearing cervix. Normal-sized uterus, no adnexal masses or tenderness. Pap smear performed today. Actions performed during this visit include: - Clinical breast exam - Clinical pelvic exam - No orders of the defined types were placed in this encounter. Problem List Items Addressed This Visit None Visit Diagnoses Encounter for gynecological examination without abnormal finding Relevant Orders THINPREP PAP TEST Encounter for screening for cervical cancer Relevant Orders THINPREP PAP TEST Provider Impression: 1. Annual Screening mammogram already ordered. Thank you for coming to your annual exam. Your findings during the exam were normal. Please return for your next visit in 2 years. documented in this encounter [facility] Work Phone: 01-21-2024 History of Presen t illness Narrative Subjective Patient ID: Merlene Sow is a 68 y.o. female who presents for Follow-up (6 mo rev labs). HPI Since the last office visit there have been no interval operations, hospitalizations, important illnesses or injuries. Had ph th for calf right. HTN-Takes and tolerates meds without side effects. No alcohol. no tobacco. no exercise. low salt. Reviewed recommendation for 150 minutes of exercise per week including 2 days of weight training if over age 50 Home avg 140/76, inc amlodipine to 10 Takes ibuprofen 600 and aleve 220 at hs Back limited for walking painand legs numb, sp stenosis IGT at 6.5 stable Elevated globulin had SPEP reported today at Philippe result not yet available to me Review of Systems General-no fatigue weight to within 10 pounds ENT no problems with vision swallowing Cardiac no chest pains palpitations change in exercise tolerance or capacity Pulmonary no cough shortness of breath GI no heartburn or abdominal pain Musculoskeletal no joint pains Objective BP 150/70 Pulse 87 Ht 1.524 m (5') Wt 104 kg (229 lb 3.2 oz) SpO2 91% BMI 44.76 kg/m Physical Exam General: Alert, No acute [...] Assessment/Plan Problem List Items Addressed This Visit ICD-10-CM Back pain M54.9 Hyperlipidemia E78.5 Relevant Medications amLODIPine (Norvasc) 10 mg tablet Other Relevant Orders Follow Up In Primary Care CBC Comprehensive Metabolic Panel Lipid Panel Hypertension - Primary I10 Relevant Orders Follow Up In Primary Care CBC Comprehensive Metabolic Panel Seasonal allergic rhinitis due to pollen J30.1 Other Visit Diagnoses Codes IGT (impaired glucose tolerance) R73.02 Relevant Orders Follow Up In Primary Care CBC Comprehensive Metabolic Panel Hemoglobin A1C Breast cancer screening by mammogram Z12.31 Elevated serum globulin level R77.1 Relevant Orders Follow Up In Primary Care Patient was identified as a fall risk. Risk prevention instructions provided. documented in this encounter [facility] Work Phone: 01-21-2024 Instructions Christa Cruz MD - 01/21/2024 10:00 AM EDT Ways to Help Prevent Falls at Home Quick Tips ? Ask for help if you need it. Most people want to help! ? Get up slowly after sitting or laying down ? Wear a medical alert device or keep cell phone in your pocket ? Use night lights, especially areas near a bathroom ? Keep the items you use often within reach on a small stool or end table ? Use an assistive device such as walker or cane, as directed by provider/physical therapy ? Use a non-slip mat and grab bars in your bathroom. Look for home health sections for best options Other Areas to Focus On ? Exercise and nutrition: Regular exercise or taking a falls prevention class are great ways improve strength and balance. Don t forget to stay hydrated and bring a snack! ? Medicine side effects: Some medicines can make you sleepy or dizzy, which could cause a fall. Ask your healthcare provider about the side effects your medicines could cause. Be sure to let them know if you take any vitamins or supplements as well. ? Tripping hazards: Remove items you could trip on, such as loose mats, rugs, cords, and clutter. Wear closed toe shoes with rubber soles. ? Health and wellness: Get regular checkups with your healthcare provider, plus routine vision and hearing screenings. Talk with your healthcare provider about: o Your medicines and the possible side effects - bring them in a bag if that is easier! o Problems with balance or feeling dizzy o Ways to promote bone health, such as Vitamin D and calcium supplements o Questions or concerns about falling *Ask your healthcare team if you have questions [facility] 2021 documented in this encounter [facility] Work Phone: 10-21-2023 History of Presen t illness Narrative Subjective: Merlene Sow is a 67 y.o. female who presents to clinic today for Follow-up (ER FUV. RLL pain. ) She notes that 3 weeks ago she started having calf tightness and tenderness for the past several weeks. 3 days ago she had sharp stabbing and radiating pain. She was seen at the ER and got an XR and cathy wrap. Around July she had right leg pain/pop cramping in her calf. She was on an incline and has noted symptoms since then on and off. 2 weeks ago she went on [place] trip [place] and was on her feet a lot. She's been icing it a lot. No personal or family history of blood clots. Review of Systems Assessment/Plan: Merlene Sow is a 67 y.o. female with a history of hypertension who presents to clinic today to address the following issues: 1. Right calf pain Referral to Physical Therapy Vascular US lower extremity arterial duplex right 2. Other specified injury of unspecified blood vessel at lower leg level, right leg, initial encounter Vascular US lower extremity arterial duplex right - Chronic problem, unresolved, new to this provider, requires further workup and treatment - Discussed with pt that I would recommend evaluation for DVT with us and ordered this - otherwise I recommended referral to PT and supportive measures like heal lift and [place] socks - she may have torn part of her gastrocnemius muscles Problem List Items Addressed This Visit None Visit Diagnoses Right calf pain - Primary Relevant Orders Referral to Physical Therapy Vascular US lower extremity arterial duplex right Other specified injury of unspecified blood vessel at lower leg level, right leg, initial encounter Relevant Orders Vascular US lower extremity arterial duplex right There are no Patient Instructions on file for this visit. Follow up: as needed Return precautions discussed. An After Visit Summary was given to the patient. All questions were answered and patient in agreement with plan. Objective: BP 150/62 Pulse 93 Ht 1.524 m (5') Wt 103 kg (228 lb) SpO2 98% BMI 44.53 kg/m Physical Exam Vitals and nursing note reviewed. Constitutional: General: She is not in acute distress. Appearance: Normal appearance. HENT: Head: Normocephalic and atraumatic. Mouth/Throat: Mouth: Mucous membranes are moist. Eyes: General: No scleral icterus. Right eye: No discharge. Left eye: No discharge. Extraocular Movements: Extraocular movements intact. Conjunctiva/sclera: Conjunctivae normal. Pulmonary: Effort: No respiratory distress. Musculoskeletal: Comments: Right calf very tender to touch, pain with palpation similar size within 1/2 inch to left calf, no redness or swelling Skin: General: Skin is warm and dry. Neurological: General: No focal deficit present. Mental Status: She is alert and oriented to person, place, and time. Psychiatric: Attention and Perception: Attention normal. Mood and Affect: Mood normal. Speech: Speech normal. Behavior: Behavior normal. Cognition and Memory: Cognition and memory normal. Judgment: Judgment normal. I spent 22 minutes in total time for this visit including all related clinical activities before, during, and after the visit excluding other billable activities/procedure time. Lopez Christian MD documented in this encounter [facility] Work Phone: 10-18-2023 Emergency department Note HPI Chief Complaint Patient presents with Leg Pain Pt reports right leg pain for the past 2 weeks. No injury. Reports pain is near achilles tendon. Today while at [facility], began having increased sharp, stabbing, burning pain the back of her right calf. Went to urgent care and was referred to the ed. Patient presents to the emergency department secondary to right lower extremity pain for the past 2 weeks. She localizes the pain to the posterior aspect of the distal lower extremity over her Achilles tendon. She states that there is no direct injury however this exacerbated when walking today. She presents now to be further evaluated. Denies chest pain or shortness of breath. No recent long trips or long travel. Denies any recent surgery or immobilization. No history of DVT. History provided by: Patient procedure manager used: No Leona Coma Scale Score: 15 Patient History Past Medical History: Diagnosis Date Allergic Arthritis Asymptomatic menopausal state History of menopause Encounter for delivery without indication ([facility]) Delivery of by section Encounter for gynecological examination (general) (routine) without abnormal findings Pap test, as part of routine gynecological examination Hypertension Other conditions influencing health status Menstruation Personal history of other medical treatment History of mammogram Unspecified tubal without intrauterine ([facility]) Ectopic , tubal Past Surgical History: Procedure Laterality Date APPENDECTOMY CHOLECYSTECTOMY HERNIA REPAIR OTHER SURGICAL HISTORY 07/21/2019 Colonoscopy OTHER SURGICAL HISTORY 07/21/2019 Tubal ligation OTHER SURGICAL HISTORY 07/21/2019 Metatarsal fracture repair OTHER SURGICAL HISTORY 07/21/2019 Esophagogastroduodenoscopy OTHER SURGICAL HISTORY 07/21/2019 Ectopic removal OTHER SURGICAL HISTORY 07/21/2019 section OTHER SURGICAL HISTORY 07/21/2019 Bunionectomy OTHER SURGICAL HISTORY 07/21/2019 Umbilical hernia repair OTHER SURGICAL HISTORY 04/13/2020 Endometrial biopsy OTHER SURGICAL HISTORY 02/23/2020 Hysteroscopy OTHER SURGICAL HISTORY 12/28/2020 Arthroplasty OTHER SURGICAL HISTORY 12/28/2020 Ganglion cyst excision TUBAL LIGATION WISDOM TOOTH EXTRACTION Family History Problem Relation Name Age of Onset Coronary artery disease Mother SMS Heart attack Mother [facility] Ovarian cancer Mother [facility] Other (CARDIAC DISORDER) Mother SMS Cancer Mother [facility] Heart disease Mother SMS Coronary artery disease Father RES Other (CARDIAC DISORDER) Father RES Melanoma Father RES Cancer Father RES Heart disease Father RES Hyperlipidemia Father RES Hyperlipidemia Brother Diabetes type II Other GRANDPARENT Stroke Paternal Grandfather MOUNIKA Diabetes Paternal Grandmother WMS Alcohol abuse Brother Barrtet Tomlinson Hyperlipidemia Brother LI Social History Tobacco Use Smoking status: Former Current packs/day: 0.50 Average packs/day: 0.5 packs/day for 15.0 years (7.5 ttl pk-yrs) Types: Cigarettes Smokeless tobacco: Never Vaping Use Vaping status: Never Used Substance Use Topics Alcohol use: Not Currently Comment: 1 or 2 a month Drug use: Never Physical Exam ED Triage Vitals [10/18/23 1758] Temperature Heart Rate Respirations BP 36.6 C (97.8 F) 97 18 161/73 Pulse Ox Temp Source Heart Rate Source Patient Position 95 % Temporal Monitor Sitting BP Location FiO2 (%) Left arm -- Physical Exam Vitals and nursing note reviewed. Constitutional: General: She is not in acute distress. Appearance: Normal appearance. She is obese. She is not ill-appearing, toxic-appearing or diaphoretic. HENT: Head: Normocephalic and atraumatic. Nose: Nose normal. No rhinorrhea. Neck: Comments: Trachea is midline Cardiovascular: Rate and Rhythm: Normal rate and regular rhythm. Pulses: Normal pulses. Musculoskeletal: General: No swelling, tenderness, deformity or signs of injury. Normal range of motion. Cervical back: Normal range of motion. Right lower leg: No edema. Left lower leg: No edema. Comments: Right lower extremity is grossly normal in appearance. The skin is not erythematous, mottled, or noted to show any other skin changes. Negative Homans' sign. Negative palpable cord. The patient is localizing pain over the Achilles tendons to the posterior heel on the right side and this radiates superiorly through the calf. In regards to the knee there is no tenderness in the popliteal fossa or other deformity identified. Skin: General: Skin is warm and dry. Findings: No rash. Neurological: General: No focal deficit present. Mental Status: She is alert and oriented to person, place, and time. Mental status is at baseline. Sensory: No sensory deficit. Psychiatric: Mood and Affect: Mood normal. Behavior: Behavior normal. Thought Content: Thought content normal. Judgment: Judgment normal. ED Course & MDM Medical Decision Making Patient's only risk factor that I can identify for DVT would be obesity which would put her in the low risk category. Given that this has been going on for several weeks I feel the patient be discharged safely if her x-ray is negative, and return Saturday morning to have a DVT study more for completeness sake rather than for high clinical suspicion. Differential considerations would include, but not limited to, muscle sprain, overuse, strain, amongst many others. Patient was endorsed to the oncoming provider. Please see their note for interpretation of the x-ray and final disposition Procedure Procedures Earnest Israel DO 10/18/231911 Emergency Medicine Transition of Care Note. I received Merlene Sow in signout from Dr. Israel. Please see the previous ED provider note for all HPI, PE and MDM up to the time of signout at 1900. This is in addition to the primary record. I did go over the results of the x-ray with the patient. Patient states she is going to take some Motrin and Tylenol for the pain and she will follow-up. Patient was given further options but she declined. Patient states she does not feel it is a blood clot. Patient is stable upon discharge. Most of the pain on physical examination is over the Achilles tendon. Pain increases with flexion. Patient will be placed in a splint. In brief Merlene Sow is an 67 y.o. female presenting for Chief Complaint Patient presents with Leg Pain Pt reports right leg pain for the past 2 weeks. No injury. Reports pain is near achilles tendon. Today while at [facility], began having increased sharp, stabbing, burning pain the back of her right calf. Went to urgent care and was referred to the ed. At the time of signout we were awaiting: x-ray. Diagnoses as of 10/18/231926 Leg pain, anterior, right XR tibia fibula right 2 views Final Result No acute bony abnormalities on x-ray examination of the right tibia and fibula. Mild to moderate degenerative joint disease of the right knee. Signed by Li Chew DO Medical Decision Making 1 take Motrin or Tylenol for pain 2 minimal weightbearing 3 follow-up with [facility] medical doctor in 2 to 3 days if no improvement return to ED. Final diagnoses: [M79.604] Leg pain, anterior, right Procedure Procedures DO Ting Lopez DO 10/18/231927 documented in this encounter [facility] Work Phone: 10-18-2023 Physician Emergency department Note HPI Chief Complaint Patient presents with Leg Pain Pt reports right leg pain for the past 2 weeks. No injury. Reports pain is near achilles tendon. Today while at [facility], began having increased sharp, stabbing, burning pain the back of her right calf. Went to urgent care and was referred to the ed. Patient presents to the emergency department secondary to right lower extremity pain for the past 2 weeks. She localizes the pain to the posterior aspect of the distal lower extremity over her Achilles tendon. She states that there is no direct injury however this exacerbated when walking today. She presents now to be further evaluated. Denies chest pain or shortness of breath. No recent long trips or long travel. Denies any recent surgery or immobilization. No history of DVT. History provided by: Patient procedure manager used: No Leona Coma Scale Score: 15 Patient History Past Medical History: Diagnosis Date Allergic Arthritis Asymptomatic menopausal state History of menopause Encounter for delivery without indication ([facility]) Delivery of by section Encounter for gynecological examination (general) (routine) without abnormal findings Pap test, as part of routine gynecological examination Hypertension Other conditions influencing health status Menstruation Personal history of other medical treatment History of mammogram Unspecified tubal without intrauterine ([facility]) Ectopic , tubal Past Surgical History: Procedure Laterality Date APPENDECTOMY CHOLECYSTECTOMY HERNIA REPAIR OTHER SURGICAL HISTORY 07/21/2019 Colonoscopy OTHER SURGICAL HISTORY 07/21/2019 Tubal ligation OTHER SURGICAL HISTORY 07/21/2019 Metatarsal fracture repair OTHER SURGICAL HISTORY 07/21/2019 Esophagogastroduodenoscopy OTHER SURGICAL HISTORY 07/21/2019 Ectopic removal OTHER SURGICAL HISTORY 07/21/2019 section OTHER SURGICAL HISTORY 07/21/2019 Bunionectomy OTHER SURGICAL HISTORY 07/21/2019 Umbilical hernia repair OTHER SURGICAL HISTORY 04/13/2020 Endometrial biopsy OTHER SURGICAL HISTORY 02/23/2020 Hysteroscopy OTHER SURGICAL HISTORY 12/28/2020 Arthroplasty OTHER SURGICAL HISTORY 12/28/2020 Ganglion cyst excision TUBAL LIGATION WISDOM TOOTH EXTRACTION Family History Problem Relation Name Age of Onset Coronary artery disease Mother SMS Heart attack Mother SMS Ovarian cancer Mother SMS Other (CARDIAC DISORDER) Mother SMS Cancer Mother SMS Heart disease Mother SMS Coronary artery disease Father RES Other (CARDIAC DISORDER) Father RES Melanoma Father RES Cancer Father RES Heart disease Father RES Hyperlipidemia Father RES Hyperlipidemia Brother Diabetes type II Other GRANDPARENT Stroke Paternal Grandfather MOUNIKA Diabetes Paternal Grandmother WMS Alcohol abuse Brother D Tomlinson Hyperlipidemia Brother LI Social History Tobacco Use Smoking status: Former Current packs/day: 0.50 Average packs/day: 0.5 packs/day for 15.0 years (7.5 ttl pk-yrs) Types: Cigarettes Smokeless tobacco: Never Vaping Use Vaping status: Never Used Substance Use Topics Alcohol use: Not Currently Comment: 1 or 2 a month Drug use: Never Physical Exam ED Triage Vitals [10/18/23 1758] Temperature Heart Rate Respirations BP 36.6 C (97.8 F) 97 18 161/73 Pulse Ox Temp Source Heart Rate Source Patient Position 95 % Temporal Monitor Sitting BP Location FiO2 (%) Left arm -- Physical Exam Vitals and nursing note reviewed. Constitutional: General: She is not in acute distress. Appearance: Normal appearance. She is obese. She is not ill-appearing, toxic-appearing or diaphoretic. HENT: Head: Normocephalic and atraumatic. Nose: Nose normal. No rhinorrhea. Neck: Comments: Trachea is midline Cardiovascular: Rate and Rhythm: Normal rate and regular rhythm. Pulses: Normal pulses. Musculoskeletal: General: No swelling, tenderness, deformity or signs of injury. Normal range of motion. Cervical back: Normal range of motion. Right lower leg: No edema. Left lower leg: No edema. Comments: Right lower extremity is grossly normal in appearance. The skin is not erythematous, mottled, or noted to show any other skin changes. Negative Homans' sign. Negative palpable cord. The patient is localizing pain over the Achilles tendons to the posterior heel on the right side and this radiates superiorly through the calf. In regards to the knee there is no tenderness in the popliteal fossa or other deformity identified. Skin: General: Skin is warm and dry. Findings: No rash. Neurological: General: No focal deficit present. Mental Status: She is alert and oriented to person, place, and time. Mental status is at baseline. Sensory: No sensory deficit. Psychiatric: Mood and Affect: Mood normal. Behavior: Behavior normal. Thought Content: Thought content normal. Judgment: Judgment normal. ED Course & MDM Medical Decision Making Patient's only risk factor that I can identify for DVT would be obesity which would put her in the low risk category. Given that this has been going on for several weeks I feel the patient be discharged safely if her x-ray is negative, and return Saturday morning to have a DVT study more for completeness sake rather than for high clinical suspicion. Differential considerations would include, but not limited to, muscle sprain, overuse, strain, amongst many others. Patient was endorsed to the oncoming provider. Please see their note for interpretation of the x-ray and final disposition Procedure Procedures Earnest Israel DO 10/18/231911 [facility] Work Phone: 10-18-2023 Physician Emergency department Note Emergency Medicine Transition of Care Note. I received Merlene Sow in signout from Dr. Israel. Please see the previous ED provider note for all HPI, PE and MDM up to the time of signout at 1900. This is in addition to the primary record. I did go over the results of the x-ray with the patient. Patient states she is going to take some Motrin and Tylenol for the pain and she will follow-up. Patient was given further options but she declined. Patient states she does not feel it is a blood clot. Patient is stable upon discharge. Most of the pain on physical examination is over the Achilles tendon. Pain increases with flexion. Patient will be placed in a splint. In brief Merlene Sow is an 67 y.o. female presenting for Chief Complaint Patient presents with Leg Pain Pt reports right leg pain for the past 2 weeks. No injury. Reports pain is near achilles tendon. Today while at [facility], began having increased sharp, stabbing, burning pain the back of her right calf. Went to urgent care and was referred to the ed. At the time of signout we were awaiting: x-ray. Diagnoses as of 10/18/231926 Leg pain, anterior, right XR tibia fibula right 2 views Final Result No acute bony abnormalities on x-ray examination of the right tibia and fibula. Mild to moderate degenerative joint disease of the right knee. Signed by Li Chew DO Medical Decision Making 1 take Motrin or Tylenol for pain 2 minimal weightbearing 3 follow-up with [facility] medical doctor in 2 to 3 days if no improvement return to ED. Final diagnoses: [M79.604] Leg pain, anterior, right Procedure Procedures DO Ting Lopez DO 10/18/231927 [facility] Work Phone: 01-02-2023 History of Presen t illness Narrative Subjective Patient ID: Merlene Sow is a 67 y.o. female who [...] bilateral screening tomosynthesis documented in this encounter [facility] Work Phone: 04-30-2022 History of Presen t illness Narrative Please review HPI from initial genetics appointment on 04/30/2022. [facility] Work Phone: 03-12-2022 Note 44 Date of Procedure: 03/12/2022 Pathologist: [facility], Cytology Date Reported: 03/19/2022 Date [...] Reference Range: Negative QC review performed at [facility], [address] [place] [id number] Testing for high-risk (HR) type of human [...] patient?s Pap test results. Please refer to ASC current guidelines for the use of HPV DNA testing, result interpretation, and patient management. The performance of this test was verified by the Molecular Diagnostic Laboratory at [facility]. The lab is certified under the Clinical Laboratory Amendments of 1988 (CLIA 88) as qualified to perform high complexity clinical laboratory testing. This specimen has been analyzed by the ThinPrep Imaging System ([employer] an automated imaging and review system, which assists the laboratory in evaluating cells on ThinPrep Pap tests. Following automated imaging, selected green from every slide were reviewed by a roller die cutting machine operator and/or pathologist. Electronically Signed Out By [facility], Cytology//CRR/JMD By the signature on this report, the individual or group listed as making the Final Interpretation/Diagnosis certifies that they have reviewed this case. Diagnostic interpretation performed at [facility] [address] [place] [address] Educational Note: Cervical cytology is a screening [...] Source of Specimen A: THINPREP PAP CERVICAL [facility] Department of Pathology [id number] Comment on above: Performed By: #### C #### [facility] Cytology [id number] [address] [facility] [address] 12-11-2020 History of Presen t illness Narrative Erin comes to the office for preop clearance for an upcoming R thumb carpometacarpal tarsal joint arthroscopy with excision of a ganglion cyst & Dequervain's release. Surgery is scheduled: 12/16/20. Wrist in R splint and has been causing her significant discomfort. She stopped her aspirin, multivitamin and naproxen yesterday (5D prior to scheduled OR).Had labs & EKG last wk @ [facility]. EKG shows normal sinus rhythm with a ventricular rate of 74 bpm. CBC & BMP were reviewed today & are unremarkable. No family history of MH. No dental work in progress or loose or missing teeth. Scheduled surgery will be under a general anesthetic with a nerve block. + snoring but no diagnosed ABDRIAHMAN. Is able to complete ADLs per self, walk a block and or can climb 2 flights of stairs without incident. No complaints of chest pain, shortness of breath, or h/o heart arrhythmias. Has had a 4 pound weight loss since earlier in yr thru portion control/ increasing activity. [facility] Work Phone: 05-13-2020 History of Presen t illness Narrative Since the last office visit there have been interval operations on right wrist, otherwsie hospitalizations, important illnesses or injuries.lab rev is blood donorfor colon this yeargyn utdHTN-Takes and tolerates meds without side effects. No alcohol. no tobacco. no exercise. low salt. Reviewed recommendation for 150 minutes of exercise per week including 2 days of weight training if over age 50Hyperlipidemia- is on statin and a prudent diet. [facility] Work Phone: Evaluation note No assessment inform ation available [facility] Work Phone: Evaluation note Diagnosis Primary hypertension- Primary Unspecified essential hypertension Mixed hyperlipidemia Seasonal allergic rhinitis due to pollen Chronic low back pain with right-sided sciatica, unspecified back pain laterality IGT (impaired glucose tolerance) Impaired glucose tolerance test Encounter for screening mammogram for malignant neoplasm of breast documented in this encounter [facility] Work Phone: Evaluation note* Diagnosis Leg pain, anterior, right- Primary documented in this encounter [facility] Work Phone: Evaluation note* Diagnosis Right calf pain- Primary Other specified injury of unspecified blood vessel at lower leg level, right leg, initial encounter documented in this encounter [facility] Work Phone: Evaluation note* Diagnosis Encounter for gynecological examination without abnormal finding Encounter for screening for cervical cancer documented in this encounter [facility] Work Phone: Evaluation note* Diagnosis Primary hypertension- Primary Unspecified essential hypertension Chronic low back pain with right-sided sciatica, unspecified back pain laterality Mixed hyperlipidemia Seasonal allergic rhinitis due to pollen IGT (impaired glucose tolerance) Impaired glucose tolerance test Breast cancer screening by mammogram Elevated serum globulin level documented in this encounter [facility] Work Phone: Evaluation note* Diagnosis Routine general medical examination at health care facility- Primary Routine general medical examination at a health care facility Primary hypertension Unspecified essential hypertension Mixed hyperlipidemia IGT (impaired glucose tolerance) Impaired glucose tolerance test Elevated serum globulin level Type 2 diabetes mellitus without complication, without long-term current use of insulin (Multi) documented in this encounter [facility] Work Phone: History of Present illness NarrativePresents for annual exam. She voices no complaints and is doing well. Denies any bowel or bladder problems. Denies any breast problems. Denies any postmenopausal bleeding.[address] Work Phone: History of Present illness [...] Devices: performs independently. * Falls Risk Screening:. MERLENE has not fallen in the last 6 [...] christie bonds provided demo provided * on coalc and vitd [facility] Work Phone: History of Present illness [...] on statin and a prudent diet. [facility] Work Phone: History of Present illness Narrative* HISTORY OF PRESENT ILLNESS: * - Ms. MERLENE SOW is a 66 year year old female with a family history of ovarian cancer. * - She was referred to the Cancer [facility]etics [facility] at [facility] by her physician, Dr. Elbert Rosario MD. [...] to the brain. * Consanguinity and Ashkenazi Restorationism ancestry were denied. The patient s maternal side is of Georgian descent, and the patient s paternal side is of Malagasy descent. The remainder of the family history was negative for kidney disease, heart disease, cancer, muscle disease, and blood disorders. [facility] [address] Work Phone: History of Present illness Narrative* [...] she has major troubles. [facility] Work Phone: History of Present illness [...] Devices: performs independently. * Falls Risk Screening:. MERLENE has not fallen in the last 6 [...] and a liberal diet. [facility] Work Phone: Hospital Discharge instructions* Attachments The following attachments cannot be sent through Care Everywhere. * Muscle and Bone Pain Discharge Instructions (Tongan) documented in this [facility] Work Phone: reason for referral (narrative)* Consultation (Routine) - Authorized Specialty Diagnoses / Procedures Referred By Zahida t Referred To Contact Primary Care Diagnoses Primary hypertension Mixed hyperlipidemia IGT (impaired glucose tolerance) Elevated serum globulin level Procedures Follow Up In Primary Care Christa Cruz MD [address] [address] Referral ID Status Reason Start Date Expiration Date V isits Requested Visits Authorized [id number] Authorized 01/21/2024 01/20/2025 1 1 T [facility] Work Phone: Reppnl for referral (narrative)No reason for referral information [facility] Work Phone: Summary Purpose Family History Grandparent [...] of ovary: Mother(V16.41, Z80.41) Status:Active Advance Directives Advance Directive Response Recorded Date/ Time Living Will No July 08 2:33pm Power of Scrap Metal Collector No July 08, 2024 2:33pm Chief Complaint PRE OP CLEARANCE PHILIPPE ORTHOPEAEDIC6 MO FU HL HTNPatient is here [...] initial appointment on 04/30/2022. [facility]..6 MO FU Chief Complaint and Reason for Visit Chief Complaint SCIATICA Chief Complaint HX OF MALIGNANT NEOP LASM Chief Complaint HX OF MALIGNANT NEOP LASM SCREENING Chief Complaint SCREENING Chief Complaint Admit Date SCREENING April 27, 2024 12:11pm ABN MAMM April 29, 2024 12:58pm NECK PAIN July 08, 2024 10:33am Reason for Referral Specialty Diagnoses / Procedures Referred By Zahida cardoza Referred To Contact Radiology Diagnoses Encounter for screening mammogram for malignant neoplasm of breast Procedures BI mammo bilateral screening tomosynthesis Christa Cruz MD [address] [place] [address] Referral ID Status Reason Start Date Expiration Date Visits Requested Visits Authorized [id number] Authorized Perform Procedure 01/02/2023 07/01/2023 1 1 Specialty Diagnoses / Procedures Referred By Contac t Referred To Contact Primary Care Diagnoses Mixed hyperlipidemia Primary hypertension Seasonal allergic rhinitis due to pollen IGT (impaired glucose tolerance) Procedures Follow Up In Primary Care - Established Christa Cruz MD [address] [place] [id number] Referral ID Status Reason Start Date Expiration Date V isits Requested Visits Authorized [id number] Authorized 01/02/2023 07/01/2023 1 1 Specialty Diagnoses / Procedures Referred By Contac t Referred To Contact Cardiology Diagnoses Right calf pain Other specified injury of unspecified blood vessel at lower leg level, right leg, initial encounter Procedures Vascular US lower extremity arterial duplex right Lopez Christian MD [address] [place] [address] [facility] Referral ID Status Reason Start Date Expiration Date Visits Requested Visits Authorized [id number] Pending Review Perform Procedure 10/21/2023 10/20/2024 1 1 Specialty Diagnoses / Procedures Referred By Contac t Referred To Contact Physical Therapy Diagnoses Right calf pain Lopez Christian MD [address] [place] [address] [facility] [address] [address] Referral ID Status Reason Start Date Expiration Date Visits Requested Visits Authorized [id number] Pending Review Specialty Services Required 10/21/2023 10/20/2024 1 1 Additional Source Comments INFORMATION SOURCE (unrecogn ized section and content) DATE CREATED AUTHOR 10/30/2017 [facility] DATE CREATED AUTHOR AUTHOR'S ORGANIZ ATION 11/30/2017 [facility] DATE CREATED AUTHOR AUTHOR'S ORGANIZ ATION 02/12/2019 [facility] DATE CREATED AUTHOR AUTHOR'S ORGANIZ ATION 02/15/2019 [facility] DATE CREATED AUTHOR AUTHOR'S ORGANIZ ATION 04/29/2020 [facility] DATE CREATED AUTHOR AUTHOR'S ORGANIZ ATION 07/06/2022 [facility] DATE CREATED AUTHOR AUTHOR'S ORGANIZ ATION 07/06/2022 [facility] DATE CREATED AUTHOR AUTHOR'S ORGANIZ ATION 11/29/2023 [facility] DATE CREATED AUTHOR AUTHOR'S ORGANIZ ATION 07/21/2024 [facility] DATE CREATED AUTHOR AUTHOR'S ORGANIZ ATION 07/28/2024 [facility] Goals (unrecognized section and content) Goals may be documented in a n alternate sectionGoals may be documented in an alternate sectionGoals may be documented in an alternate sectionGoals may be documented in an alternate sectionGoals may be documented in an alternate sectionGoals may be documented in an alternate sectionGoals may be documented in an alternate section Care Teams (unrecognized sec tion and content) Team Status: Active Member Role Status Dates Dr. Christa Cruz MD Family Provider Active Dr. Christa Cruz MD Primary Care Provider Active Team Status: Inactive Member Role Status Dates Dr. Christa Cruz MD Primary Care Pr ovider, Attending Provider, Referring Provider Active [employer] Relationship Specialty Start Date End Date Christa Cruz MD [address] [place] [address] PCP - General 01/26/19 Christa Cruz MD [address] [place] [address] PCP - [employer] PCP 05/13/21 [employer] Relationship Specialty Start Date End Date Christa Cruz MD [address] [place] [address] PCP - General 01/26/19 Christa Cruz MD [address] [place] [address] PCP - [employer] PCP 05/13/21 [employer] Tax [employer] Relationship Specialty Start Date End Date Christa Cruz MD [address] [place] [address] PCP - General 01/26/19 Christa Cruz MD [address] [place] [address] PCP - [employer] PCP 05/13/21 [employer] Relationship Specialty Start Date End Date Christa Cruz MD [address] [address] PCP - [employer] PCP 05/13/21 Christa Cruz MD [address] [address] PCP - General Family Medicine 01/21/24 [employer] Relationship Specialty Start Date End Date Christa Cruz MD [address] [address] PCP - [employer] PCP 05/13/21 Christa Cruz MD [address] [address] PCP - General Family Medicine 01/21/24 Team Status: Active Member Role Status Dates Dr. Christa Cruz MD Primary Care Provider Active Team Status: Inactive Member Role Status Dates Dr. Christa Cruz MD Primary Care Provider Active Start: April 27, 2024 End: April 27, 2024 Dr. Christa Cruz MD Attending Provider Active Start: April 27, 2024 End: April 27, 2024 Dr. Christa Cruz MD Referring Provider Active Start: April 27, 2024 End: April 27, 2024 Team Status: Inactive Member Role Status Dates Dr. Christa Cruz MD Primary Care Provider Active Start: April 29, 2024 End: April 29, 2024 Dr. Christa Cruz MD Attending Provider Active Start: April 29, 2024 End: April 29, 2024 Dr. Christa Cruz MD Referring Provider Active Start: April 29, 2024 End: April 29, 2024 Team Status: Inactive Member Role Status Dates Dr. Christa Cruz MD Primary Care Provider Active Start: July 08, 2024 End: July 08, 2024 Dr. Otto Funk DO Attending Provider Active Start: July 08, 2024 End: July 08, 2024 Dr. Otto Funk DO Emergency Provider Active Start: July 08, 2024 End: July 08, 2024 Team Status: Inactive Member Role Status Dates Dr. Christa Cruz MD Primary Care Provider Active Start: July 16, 2024 End: July 16, 2024 Dr. Christa Cruz MD Attending Provider Active Start: July 16, 2024 End: July 16, 2024 Dr. Christa Cruz MD Referring Provider Active Start: July 16, 2024 End: July 16, 2024 Reason for Visit (unrecogniz ed section and content) Reason Comments Follow-up 6 mo Reason Comments Leg Pain Pt reports right leg pain for the past 2 weeks. No injury. Reports pain is near achilles tendon. Today while at [facility], began having increased sharp, stabbing, burning pain the back of her right calf. Went to urgent care and was referred to the ed. Reason Comments Follow-up ER FUV. RLL pain. Reason Comments Gynecologic Exam Pt here for Tahir reynolds m. Pt does do breast exams. Pt's last pap 03/03/22. Pt does not have any concerns at this time Reason Comments Follow-up 6 mo rev labs Specialty Diagnoses / Procedures Referred By Contac t Referred To Contact Primary Care Diagnoses Mixed hyperlipidemia Primary hypertension Seasonal allergic rhinitis due to pollen IGT (impaired glucose tolerance) Breast cancer screening by mammogram Elevated serum globulin level Procedures Follow Up In Primary Care - Established Christa Cruz MD [address] [address] Referral ID Status Reason Start Date Expiration Date V isits Requested Visits Authorized [id number] Authorized 07/08/2023 07/07/2024 1 1 Reason Comments Medicare Annual Wellness Visit Subsequen t 6 mo fu Specialty Diagnoses / Procedures Referred By Contac t Referred To Contact Primary Care Diagnoses Primary hypertension Mixed hyperlipidemia IGT (impaired glucose tolerance) Elevated serum globulin level Procedures Follow Up In Primary Care Christa Cruz MD [address] [address] Phone: tel: fax: Referral ID Status Reason Start Date Expiration Date V isits Requested Visits Authorized [id number] Authorized 01/21/2024 01/20/2025 1 1 FOR RECORDS PERTAINING TO PATIENTS WHO ARE [...] BE BASED ON THE PRIMARY CLINICAL RECORDS. [facility]. provides no warranty or guarantee of the accuracy or completeness of information in this document.
== END | disposition home or self-care (01) ==
LOC: LAB 09:13
PROVIDERS: PCP Family Medicine; Referring Provider Family Medicine; Visit Provider Family Medicine
DX: E11.9 Type 2 diabetes mellitus without complications (principal)
CPT/HCPCS: 36415; 83036

== ENCOUNTER → 2025-01-08 | Outpatient (CLI) | payer MEDICARE, SELFPAY ==
[2025-01-08 10:04] LABS: Hematocrit 39.7 % (37-47); Hemoglobin 12.9 g/dL (12.0-15.0); Mean Corp Hgb Conc 32.5 g/dL (32-36); Mean Corpuscular Volume 81.9 fL (81-99); Mean Platelet Vol. 11.6 fl (6.2-12.0); Platelet Count 342 K/mm3 (150-450); RBC Distribution Width CV 15.3 % (11.6-14.6); RBC Distribution Width SD 46.0 fl (35.1-43.9); Red Blood Count 4.85 M/mm3 (4.2-5.4); White Blood Count 9.8 K/mm3 (4.4-11.0)
[2025-01-08 11:04] LABS: AST(SGOT) 23 U/L (<=31); Alanine Aminotransfer ALT/SGPT 21 U/L (<=34); Albumin, Serum 3.9 g/dL (3.4-4.8); Alkaline Phosphatase 116 U/L (35-104); Anion Gap 12 (5-15); BUN 17 mg/dL (4-19); BUN/Creat Ratio 24.3 RATIO (10-20); Calcium,Total 9.4 mg/dL (7.6-11.0); Carbon Dioxide 23.3 mmol/L (21.0-32.0); Chloride 103 mmol/L (98-108); Globulin 3.7 g/dL (2.2-4.2); Glucose 128 mg/dL (70-99); Potassium 4.1 mmol/L (3.3-5.1)
== END | disposition home or self-care (01) ==
PROVIDERS: PCP Family Medicine
DX: C54.1 Malignant neoplasm of endometrium (principal); E11.9 Type 2 diabetes mellitus without complications; I10 Essential (primary) hypertension; M19.90 Unspecified osteoarthritis, unspecified site; G47.30 Sleep apnea, unspecified
CPT/HCPCS: 36415; 80053; 83036; 85027; 86304

== ENCOUNTER → 2025-04-19 | Outpatient (CLI) | payer MEDICARE, SELFPAY | END | disposition home or self-care (01) | LOC: LAB 10:44 | PROVIDERS: PCP Family Medicine; Referring Provider Family Medicine; Visit Provider Family Medicine | DX: E11.9 Type 2 diabetes mellitus without complications (principal) | CPT/HCPCS: 36415; 83036 ==